=== PATIENT | male | born 1940 | race Caucasian/White ===

== ENCOUNTER → 2020-06-25 09:58 | Outpatient (BNVA) | payer MEDICARE, SELFPAY | PROVIDERS: PCP Internal Medicine; Visit Provider Internal Medicine Medical Oncology | DX: I26.99 Other pulmonary embolism without acute cor pulmonale (principal); Z51.81 Encounter for therapeutic drug level monitoring; Z79.01 Long term (current) use of anticoagulants | CPT/HCPCS: 85610; 99211 ==

== ENCOUNTER → 2020-07-11 08:55 | Outpatient (BNVA) | payer MEDICARE, SELFPAY | PROVIDERS: PCP Internal Medicine; Visit Provider Internal Medicine | DX: I26.99 Other pulmonary embolism without acute cor pulmonale (principal); Z51.81 Encounter for therapeutic drug level monitoring; Z79.01 Long term (current) use of anticoagulants | CPT/HCPCS: 85610; 99211 ==

== ENCOUNTER → 2020-08-08 08:54 | Outpatient (BNVA) | payer MEDICARE, SELFPAY | PROVIDERS: PCP Internal Medicine; Visit Provider Internal Medicine | DX: I26.99 Other pulmonary embolism without acute cor pulmonale (principal); Z51.81 Encounter for therapeutic drug level monitoring; Z79.01 Long term (current) use of anticoagulants | CPT/HCPCS: 85610; 99211 ==

== ENCOUNTER → 2020-09-10 08:25 | Outpatient (BNVA) | payer MEDICARE, SELFPAY | PROVIDERS: PCP Internal Medicine; Visit Provider Internal Medicine | DX: I26.99 Other pulmonary embolism without acute cor pulmonale (principal); Z79.01 Long term (current) use of anticoagulants; Z51.81 Encounter for therapeutic drug level monitoring | CPT/HCPCS: 85610; 99211 ==

== ENCOUNTER → 2020-10-08 08:50 | Outpatient (BNVA) | payer MEDICARE, SELFPAY | PROVIDERS: PCP Internal Medicine; Visit Provider Internal Medicine | DX: I26.99 Other pulmonary embolism without acute cor pulmonale (principal); Z51.81 Encounter for therapeutic drug level monitoring; Z79.01 Long term (current) use of anticoagulants | CPT/HCPCS: 85610; 99211 ==

== ENCOUNTER → 2020-11-05 09:11 | Outpatient (BNVA) | payer MEDICARE, SELFPAY | PROVIDERS: PCP Internal Medicine; Visit Provider Internal Medicine | DX: I26.99 Other pulmonary embolism without acute cor pulmonale (principal); Z51.81 Encounter for therapeutic drug level monitoring; Z79.01 Long term (current) use of anticoagulants | CPT/HCPCS: 85610; 99211 ==

== ENCOUNTER → 2020-12-03 09:03 | Outpatient (BNVA) | payer MEDICARE, SELFPAY | PROVIDERS: PCP Internal Medicine; Visit Provider Internal Medicine | DX: I26.99 Other pulmonary embolism without acute cor pulmonale (principal); Z51.81 Encounter for therapeutic drug level monitoring; Z79.01 Long term (current) use of anticoagulants | CPT/HCPCS: 85610; 99211 ==

== ENCOUNTER → 2020-12-31 08:48 | Outpatient (BNVA) | payer MEDICARE, SELFPAY | PROVIDERS: PCP Internal Medicine; Visit Provider Internal Medicine | DX: I26.99 Other pulmonary embolism without acute cor pulmonale (principal); Z79.01 Long term (current) use of anticoagulants; Z51.81 Encounter for therapeutic drug level monitoring | CPT/HCPCS: 85610; 99211 ==

== ENCOUNTER → 2021-01-21 09:07 | Outpatient (BNVA) | payer MEDICARE, SELFPAY | PROVIDERS: PCP Internal Medicine; Visit Provider Internal Medicine | DX: I26.99 Other pulmonary embolism without acute cor pulmonale (principal); Z51.81 Encounter for therapeutic drug level monitoring; Z79.01 Long term (current) use of anticoagulants | CPT/HCPCS: 85610; 99211 ==

== ENCOUNTER 2021-01-22 09:39 | Outpatient (REF) | payer MEDICARE, SELFPAY ==
--- NOTE | ~2021-01-22 | CT_ITS ---
EXAMINATION: CT CHEST, ABDOMEN AND PELVIS WITH IV CONTRAST CLINICAL INFORMATION: Metastatic colon cancer. Followup pulmonary nodules and liver lesions. COMPARISON: Previous PET/CT scan April 2020, chest CT scan February 2019 and MRI November 2018 TECHNIQUE: Axial images through the chest, abdomen and pelvis following oral and 85 mL Omnipaque 350 intravenous contrast. Sagittal and coronal reconstructions on the technologist workstation were performed. Patient dose: 215 plus 546 mGy-cm. This CT examination was performed using dose optimization techniques as appropriate, variously including the following: *Automated exposure control *Adjustment of mA and/or kV according to patient size (this includes techniques or standardized protocols for targeted exams where dose is matched to indication/reason for exam; i.e. extremities or head) *Use of iterative reconstruction technique FINDINGS: CHEST: The previously identified left upper lobe nodule on PET/CT scan April 2020 is changed in appearance. This has a central semisolid portion measuring 5 mm and new surrounding peripheral ground-glass attenuation measuring up to 2.8 cm. The central solid component appears smaller and less dense than seen on previous exam when this mentioned a homogeneous solid nodule measuring 1.3 cm. Question representing changes related to local treatment. There are 2 new right upper lobe nodules measuring 2.2 x 2.8 cm near the minor fissure and 1.5 cm x 2 cm more centrally near the right pulmonary hilum axial images 28 and 29 series 4. There are numerous new and increasing right lower lobe pulmonary nodules. The largest measures 3.2 x 3.6 cm axial image 38 series 4 near the major fissure. This measured approximately 7 mm on previous PET/CT scan. The visualized thyroid gland is unremarkable. There is question of increasing right hilar lymph nodes versus central right upper and right lower lung nodules. There is increasing right internal thoracic and anterior cardiophrenic angle/anterior diaphragmatic lymphadenopathy. No other evidence of enlarged hilar or mediastinal lymph nodes are seen. The heart does not appear enlarged. There is no pericardial effusion. There is no pleural effusion or pleural thickening. No chest wall mass or enlarged axillary lymph nodes are seen. There is a right jugular port with tip projecting over the SVC. Review at bone windows demonstrates no fracture or focal bone lesion. There are degenerative changes of the spine. ABDOMEN AND PELVIS: There is interval increase in size and number of liver lesions. There are multiple clustered lesions seen in the right lobe of the liver, possibly extending into some of the caudate lobe of the liver. These appear low-attenuation or possibly cystic or necrotic. The largest lesion measures 3.5 x 4.4 cm axial image 17 series 3. There is a separate smaller lesion measuring 2.5 x 2.8 cm near the caudate lobe axial image 20 series 3. There are several smaller satellite subcentimeter surrounding lesions. Liver lesions are difficult to separate from adjacent right adrenal lesion. There is a new 1 cm low-attenuation lesion in the left lobe axial image 26 series 3. There is question of a lesion in the falciform ligament superior to the gallbladder measuring 1 x 2 cm axial image 15 series 3 that is new. There is a 1 x 1.5 cm low-attenuation lesion in the left lobe of the liver that is stable and probably represents a cyst. The gallbladder is unremarkable. There is no biliary ductal dictation. There is a lobulated right adrenal heterogeneous nodule that measures 4.6 x 5.6 cm axial image 23 series 3. This is increased in size from prior pelvic CT scan and again difficult to separate from liver lesions. The left adrenal gland is normal-appearing. There are bilateral renal cysts. The kidneys are otherwise unremarkable. The bladder is not optimally distended. The prostate gland is slightly enlarged and protrudes into the base of the bladder. There are postsurgical changes from right colectomy. Small and large bowel is otherwise unremarkable. The stomach is unremarkable. There are several high-attenuation peritoneal nodules, for example, measuring 8 mm adjacent to the stomach axial image 30 series 3 and in the posterior mediastinum/upper abdomen adjacent to the esophagus axial image 14 series 3. Findings are questionable for evidence of peritoneal disease. There is no ascites. There are bilateral inguinal hernias containing fat, right greater than left. No adenopathy is seen. There is a new area of low attenuation seen in the main portal vein axial image 23 series 3 suggestive of thrombus. This is immediately adjacent to focal lesion and could possibly represent tumor thrombus. Review of bone windows demonstrates degenerative changes of the spine. No fracture or bone lesion is seen. CT/CT abdomen pelvis w con IMPRESSION: CHEST: There is overall interval increase in pulmonary nodules with new nodules in the right upper lobe and new and increasing nodules in the right lower lobe. The left upper lobe nodule appears smaller and decreased in density with a new larger area of surrounding ground-glass attenuation, question representing post local treatment changes. There is increasing right internal thoracic/internal mammary and anterior cardiophrenic angle/diaphragmatic lymphadenopathy. ABDOMEN AND PELVIS: Interval increase in size and number of liver lesions. Increasing right adrenal mass. This is difficult to separate from the adjacent liver lesions. New small amount of thrombus seen in the main portal vein. Question new peritoneal disease.
[2021-01-22] MEDS: iohexoL 350 MG/ML 100 ML INFUS..BTL IV (11:15)
== END 2021-01-22 09:40 | disposition home or self-care (01) ==
LOC: HO.CT 09:39
PROVIDERS: PCP Internal Medicine; Visit Provider Internal Medicine Medical Oncology
DX: C18.9 Malignant neoplasm of colon, unspecified (principal)
CPT/HCPCS: 71260; 74177; Q9967

== ENCOUNTER → 2021-01-24 09:15 | Outpatient (BNVA) | payer MEDICARE, SELFPAY | PROVIDERS: PCP Internal Medicine; Visit Provider Internal Medicine | DX: I26.99 Other pulmonary embolism without acute cor pulmonale (principal); Z79.01 Long term (current) use of anticoagulants; Z51.81 Encounter for therapeutic drug level monitoring | CPT/HCPCS: 85610; 99211 ==

== ENCOUNTER → 2021-01-31 08:34 | Outpatient (BNVA) | payer MEDICARE, SELFPAY | PROVIDERS: PCP Internal Medicine; Visit Provider Internal Medicine | DX: I26.99 Other pulmonary embolism without acute cor pulmonale (principal); Z51.81 Encounter for therapeutic drug level monitoring; Z79.01 Long term (current) use of anticoagulants | CPT/HCPCS: 85610; 99211 ==

== ENCOUNTER → 2021-02-14 08:49 | Outpatient (BNVA) | payer MEDICARE, SELFPAY | PROVIDERS: PCP Internal Medicine; Visit Provider Internal Medicine | DX: I26.99 Other pulmonary embolism without acute cor pulmonale (principal); Z51.81 Encounter for therapeutic drug level monitoring; Z79.01 Long term (current) use of anticoagulants | CPT/HCPCS: 85610; 99211 ==

== ENCOUNTER → 2021-03-14 08:58 | Outpatient (BNVA) | payer MEDICARE, SELFPAY | PROVIDERS: PCP Internal Medicine; Visit Provider Internal Medicine | DX: I26.99 Other pulmonary embolism without acute cor pulmonale (principal); Z51.81 Encounter for therapeutic drug level monitoring; Z79.01 Long term (current) use of anticoagulants | CPT/HCPCS: 85610; 99211 ==

== ENCOUNTER 2021-03-21 11:27 | Outpatient (REF) | payer MEDICARE, SELFPAY ==
--- NOTE | ~2021-03-21 | US_ITS ---
EXAMINATION: US VENOUS ULTRASOUND WITH DOPPLER LOWER EXTREMITY, BILATERAL CLINICAL INFORMATION: Swelling. History of DVT. COMPARISON: Previous exam most recent October 2019 TECHNIQUE: Ultrasound of the deep veins is performed from the hip to the calf with compression sonography and color and pulse Doppler assessment. Spectral analysis with color-flow imaging is performed. FINDINGS: RIGHT: There is thrombus seen in the right superficial femoral and popliteal vein. This is similar to previous exams, most recent October 2019. The right common femoral vein and posterior tibial and peroneal veins in the calf are patent. There is no significant popliteal fossa cyst. LEFT: There is normal venous compression and respiratory variation and augmented flow. The visualized common femoral vein, superficial femoral vein, profunda femoral vein, popliteal vein, and the trifurcation region shows no evidence of deep venous thrombosis. There is no significant popliteal fossa cyst. US/US venous duplex LE BI IMPRESSION: Right superficial femoral and popliteal vein DVT. This is similar to previous exams most recent October 2019. If there is clinical suspicion of acute DVT, short-term follow-up exam in several days to evaluate for change may be helpful. No evidence of left leg DVT.
--- NOTE | ~2021-03-21 | XR_ITS ---
EXAMINATION: XR RIBS, LEFT CLINICAL INFORMATION: Unspecified fall. COMPARISON: CT chest 01/22/2021 TECHNIQUE: 3 views of the left ribs were obtained. Chest one view FINDINGS: Chest: The lungs are well-expanded and clear of acute pneumonic process. Multiple views of left ribs reveal no visible fracture or bony abnormality. There are marker has been placed along the left lower ribs no abnormality seen. XR/XR ribs LT min 3V w [id number] IMPRESSION: Multiple right lung nodules. These were visualized on the recent CT chest exam 01/22/2021. There is no visible left rib fracture.
== END 2021-03-21 11:28 | disposition home or self-care (01) ==
LOC: HO.HMGCX 11:27
PROVIDERS: Visit Provider Internal Medicine
DX: R60.0 Localized edema (principal); E13.9 Other specified diabetes mellitus without complications; R07.81 Pleurodynia; S29.9XXA Unspecified injury of thorax, initial encounter; W19.XXXA Unspecified fall, initial encounter; X58.XXXA Exposure to other specified factors, initial encounter; Y93.9 Activity, unspecified; Y92.9 Unspecified place or not applicable; Y99.9 Unspecified external cause status
CPT/HCPCS: 71101; 93970

== ENCOUNTER → 2021-03-25 09:00 | Outpatient (BNVA) | payer MEDICARE, SELFPAY | PROVIDERS: PCP Internal Medicine; Visit Provider Internal Medicine | DX: I26.99 Other pulmonary embolism without acute cor pulmonale (principal); Z51.81 Encounter for therapeutic drug level monitoring; Z79.01 Long term (current) use of anticoagulants | CPT/HCPCS: 85610; 99211 ==

== ENCOUNTER 2021-04-02 16:04 | Emergency (ER) | payer MEDICARE, SELFPAY ==
--- NOTE | ~2021-04-02 | XR_ITS ---
Examination: XR thoracic spine 2V, XR lumbar spine 2-3V Indication: ? mets Comparison: 04/02/2021 CT scan of the pelvis and the 01/22/2021 CT scan of the chest and upper abdomen. Technique: 2 views the thoracic spine and 3 views of the lumbar spine obtained. Findings: Bones are normal anatomic alignment. I do not appreciate any acute fracture or spondylolisthesis. Vertebral body heights are grossly preserved. Extensive osteophyte formation is seen anteriorly in the thoracic spine. Mild degenerative changes in the posterior elements the lower lumbar spine. Bilateral airspace disease better seen on prior dedicated images through the chest. Bowel gas pattern unremarkable XR/XR thoracic spine 2V Impression: Chronic appearing and degenerative changes in the spine. I do not appreciate any definitive acute bony destructive lesions on these plain films. If there is persistent concern, cross-sectional imaging would be more sensitive.
--- NOTE | ~2021-04-02 | CT_ITS ---
EXAMINATION: CT HEAD WITHOUT CONTRAST CT CERVICAL SPINE WITHOUT CONTRAST CLINICAL INFORMATION: Dizziness. Imbalance. Metastatic disease. Colon cancer. COMPARISON: PET/CT study April 22, 2020. CT chest January 22, 2021 TECHNIQUE: Imaging was performed from the skull base to vertex without intravenous administration of contrast. In addition, helical noncontrast CT imaging was acquired through the cervical spine and source images were reviewed along with axial reconstructions and sagittal and coronal MPRs. [This CT examination was performed using dose optimization techniques as appropriate, variously including the following: *Automated exposure control *Adjustment of mA and/or kV according to patient size (this includes techniques or standardized protocols for targeted exams where dose is matched to indication/reason for exam; i.e. extremities or head) *Use of iterative reconstruction technique] DLP: 736.19+467.14+10.25 mGy-cm FINDINGS: HEAD: There are multiple geographic areas of edema in the white matter with associated mass effect. This is consistent with multiple metastatic lesions. There is a lesion in the left frontal lobe measuring about 1.2 cm with surrounding vasogenic edema. At the posterior right parietal lobe there is a 2.9 cm lesion. The left frontal parietal lobe adjacent to the sylvian fissure there is a hemorrhagic lesion measuring 2.5 cm. No intracranial hemorrhage. No significant midline shift. There is no hydrocephalus. There is no extra-axial collections. Visualized mastoid air cells, middle ear cavities are normally aerated. Small volume of mucosal thickening in the posterior right ethmoid sinus. CERVICAL SPINE: There is no evidence of acute cervical spine fracture. Vertebral bodies remain normal in height. Cervical vertebrae have normal alignment. There is multilevel degenerative spondylosis of the cervical spine with disc height narrowing and endplate spurs and facet joint arthrosis No pre- or paravertebral soft tissue abnormality is identified. Partially visualized left apical pleural-parenchymal scarring and nodule measuring 1.2 cm. This is stable since prior CAT of the chest scan January 22, 2021 CT/CT cervical spine wo con IMPRESSION: 1. There are multiple metastatic lesions in the brain bilaterally with significant surrounding vasogenic edema. 2. No CT evidence of acute cervical spine fracture or traumatic subluxation
--- NOTE | ~2021-04-02 | XR_ITS ---
Examination: XR thoracic spine 2V, XR lumbar spine 2-3V Indication: ? mets Comparison: 04/02/2021 CT scan of the pelvis and the 01/22/2021 CT scan of the chest and upper abdomen. Technique: 2 views the thoracic spine and 3 views of the lumbar spine obtained. Findings: Bones are normal anatomic alignment. I do not appreciate any acute fracture or spondylolisthesis. Vertebral body heights are grossly preserved. Extensive osteophyte formation is seen anteriorly in the thoracic spine. Mild degenerative changes in the posterior elements the lower lumbar spine. Bilateral airspace disease better seen on prior dedicated images through the chest. Bowel gas pattern unremarkable XR/XR lumbar spine 2-3V Impression: Chronic appearing and degenerative changes in the spine. I do not appreciate any definitive acute bony destructive lesions on these plain films. If there is persistent concern, cross-sectional imaging would be more sensitive.
--- NOTE | ~2021-04-02 | CT_ITS ---
EXAMINATION: CT PELVIS WITHOUT CONTRAST CLINICAL INFORMATION: History of metastatic disease. Colon cancer. COMPARISON: CT abdomen pelvis January 22, 2021. PET/CT April 22, 2020 TECHNIQUE: Helical scanning was performed with submillimeter collimation through the pelvis. Sagittal and coronal multiplanar 2-D reconstructions were obtained. This CT examination was performed using dose optimization techniques as appropriate, variously including the following: *Automated exposure control *Adjustment of mA and/or kV according to patient size (this includes techniques or standardized protocols for targeted exams where dose is matched to indication/reason for exam; i.e. extremities or head) *Use of iterative reconstruction technique DLP: 552.46 mGy-cm FINDINGS: PELVIS: No acute abnormality. No inflammation. No focal fluid collection or abscess. No free air. No acute change of the bowel. No bowel obstruction. No bowel wall thickening or edema. Moderate volume of stool in the colon. Largest collection of stool is in the rectum sigmoid but without evidence for stercoral colitis. There is a surgical suture line in the right colon at the cecum. No pelvic mass. No significant lymphadenopathy. Redemonstration of renal cysts bilateral lower poles. No follow-up imaging is recommended for simple renal cyst. Prostate measures 4.8 cm transverse. Seminal vesicles are normal. Bladder is unremarkable. Bilateral fat-containing inguinal hernias. Mild degenerative spondylosis lower lumbar spine. Degenerative changes of sacroiliac joints. There are bridging spurs of the sacroiliac joints bilateral. No acute osseous or suspicious osseous lesions CT/CT pelvis wo con IMPRESSION: No pelvic mass or evidence of metastatic disease. No acute change of pelvis.
[2021-04-02 16:06] VITALS: BP 153/70; PULSE 77; RESP 16; TEMP 36.5; O2SAT 97; BMI 31.7
--- NOTE | 2021-04-02 16:17 | PC.NURSE ---
Patient sent to er by pcp for CT scan. Pt has been falling more frequently. Pt has a sensation that he is floating. Pt denies dizziness. Family states pt coordination is off causing him to have difficulty dressing self for the last several days
[2021-04-02 16:19] VITALS: BP 145/70; PULSE 78; RESP 16; O2SAT 99
[2021-04-02 16:39] LABS: MANUAL DIFF FLAG NO
--- NOTE | 2021-04-02 16:40 | ED_ITS ---
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 His daughter states the patient has had a decline in his energy level, his food intake, has become incontinent of urine and is unable to dress himself as of the last few weeks. She states the patient is also off balance, she says he is complaining of feeling like he is ?floating ?. He has been using a cane around the house but he is not very good with that and they are concerned he is going to fall, he wal ks while holding furniture, from item to item. 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 Today, the patient denies any chest pain, shortness of breath, fever, cough, nausea, vomiting, diarrhea, abdominal pain, headaches or changes in his hearing or vision. Related Data Home Medications Medication Instructions Recorded Confirmed omeprazole 20 mg capsule,delayed 20 mg PO DAILY 10/16/20 04/02/21 release centrum multivitamin PO 01/24/21 04/02/21 glipizide 5 mg tablet 5 mg PO DAILY 04/02/21 04/02/21 Previous Rx's Medication Instructions Recorded lisinopril 20 1 tab PO DAILY #90 tab 02/03/21 mg-hydrochlorothiazide 25 mg tablet clotrimazole-betamethasone 1 1 appl TOPICAL ONCE 30 Days #45 g 03/21/21 %-0.05 % topical cream warfarin 5 mg PO DAILY #90 tab 04/01/21 Allergies Allergy/AdvReac Type Severity Reaction Status Date / Time No Known Allergies Allergy Verified 04/02/21 15:10 [No Known Allergies*] Review of Systems Review of Systems: Yes all other systems are reviewed and are negative PMFSH Past Medical History Medical History Anticoagulated on warfarin Chronic GERD Colon cancer Diabetes 1.5, managed as type 2 Difficulty walking Hypertension, essential Liver lesion Lung nodule Surgical History History of wisdom tooth extraction Family History Family History Father HTN (hypertension) Mother Hyperlipidemia Maternal Grandfather No problems noted. Maternal Grandmother Mental health disorder Paternal Grandfather No problems noted. Paternal Grandmother No problems noted. Social History Social History Alcohol intake: never Patient Tobacco Use Status: Never used Tobacco e-Cigarette/Vaping Use: Never Used Use of substances other than those prescribed or required for medical reasons: No Advance Directives: No Advance Directives Information Provided: Yes Physical Exam Vital Signs: Vital Signs: Last Vital Signs Temp 98.4 F 04/02/21 18:41 Pulse 74 04/02/21 18:42 Resp 18 04/02/21 18:41 BP 147/57 H 04/02/21 18:41 Pulse Ox 97 04/02/21 18:41 Body Mass Index 31.7 Const: General: cooperative, healthy appearing, comfortable, no acute distress and well developed Nutritional Appearance: overweight Orientatio n/consciousness: patient oriented x3 HENMT: Head: Yes normal to inspection, Yes normocephalic and Yes atraumatic Ears: hearing grossly normal bilaterally General nose exam: Normal external nose present Face and sinus: Yes normal facial exam and Yes face symmetric Mouth: Normal oral and palatal mucosa present, lip normal and tongue normal Eyes: General: dysmorphic (right eye protrudes further than left, new per daughter) Visual Houser: normal visual houser by confrontation Pupils: Equal, round and reactive pupils present EOM: EOMs intact bilaterally Neck: Neck: Yes normal visual inspection and Yes full ROM Resp: Effort & Inspection: normal respiratory effort and able to speak in complete sentences Auscultation: clear to auscultation bilaterally Cardio: Rate: regular rate Rhythm: regular rhythm Heart sounds: normal S1 and S2 GI: Inspection: Yes obesity Palpation (GI): Soft to palpation and nontender Neuro: General: patient oriented x3 and Unable to assess gait Cranial nerves: Yes CN's II-XII intact bilaterally and Yes Equal, round and reactive pupils present Gait exam (Neuro): Unable to assess gait Motor exam (neuro): 5/5 motor strength present throughout Extrem: General: Yes normal to inspection and Yes pedal edema (trace b/l) Course Course Course Narrative: 80-year-old male with a past medical history of 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 VSS, physical exam remarkable only for the right eye for treating further than the left, this is new per his daughter. Will get basic labs as well as a brain CT and a full spine CT including pelvis. Reevaluation(s) Reevaluation #1: 1. There are multiple metastatic lesions in the brain bilaterally with significant surrounding vasogenic edema. 2. No CT evidence of acute cervical spine fracture or traumatic subluxation 3. No pelvic mass or evidence of metastatic disease. No acute change of pelvis. 4. Labs appear to be at baseline. Patient's daughters are with him in the exam room, we talked about the results of the scans and his labs including a chronic pancytopenia. They state they feel safe with him going home as his is there and they are only a few minutes away. Patient does have a follow-up appointment with oncology tomorrow to discuss the results of these scans. Medical Decision Making Lab Data Result diagrams: 04/02/21 16:35 04/02/21 16:35 Labs: Lab Results 04/02/21 04/02/21 Range/Units 16:35 16:35 WBC 3.6 L (4.8-10.8) X10*3/uL RBC 3.54 L (4.60-5.80) X10*6/uL Hgb 10.7 L (14.0-18.0) g/dl Hct 33.2 L (42-52) % MCV 93.8 (80-98) fL MCH 30.2 (27.0-33.0) pg MCHC 32.2 (31.0-36.0) g/dl RDW 13.1 (11.0-16.0) % Plt Count 117 L (160-400) X10*3/uL MPV 9.2 L (9.4-12.4) fL Immature Gran % (Auto) 0.3 (0.0-0.4) % Neut % (Auto) 51.1 (45-73) % Lymph % (Auto) 28.1 (20-40) % Evangeline % (Auto) 16.3 H (2-11) % Eos % (Auto) 3.9 (0-4) % Baso % (Auto) 0.3 (0-2) % Lymph # (Auto) 1.0 L (1.2-4.9) X10*3/uL Evangeline # (Auto) 0.6 (0.1-1.2) X10*3/uL Eos # (Auto) 0.1 (0.0-0.4) X10*3/uL Baso # (Auto) 0.0 (0.0-0.2) X10*3/uL Abs Immat Gran (auto) 0.01 (0.00-0.03) X10*3/uL Absolute Neuts (auto) 1.9 L (2.0-8.3) X10*3/uL Absolute Nucleated RBC 0.000 (0.0-0.012) X10*3/uL Nucleated RBC % (auto) 0.0 (0.0-0.2) /100WBC Sodium 137 (135-145) mmol/L Potassium 4.0 (3.3-5.1) mmol/L Chloride 100 (96-108) mmol/L Carbon Dioxide 27 (22-29) mmol/L Anion Gap 14 (12-20) BUN 18 H (9-16) mg/dL Creatinine 1.10 (0.5-1.4) mg/dL Estim Creat Clear Calc 60.8 Estimated GFR > 60 Random Glucose 128 H D (60-115) mg/dL Calcium 9.5 D (8.4-10.2) mg/dL Total Bilirubin 0.5 (0.0-1.0) mg/dL AST 36 (5-37) U/L ALT 24 (0-40) U/L Alkaline Phosphatase 111 D (39-117) U/L Total Protein 8.5 H (6.5-8.0) g/dL Albumin 3.6 (3.5-5.0) g/dL Discharge Plan Discharge Clinical Impression: Pancytopenia, Adenocarcinoma of colon, Metastatic adenocarcinoma to brain, 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 As discussed, please be sure to follow-up with Oncology, as scheduled tomorrow. Prescriptions: No Action lisinopril-hydrochlorothiazide 20-25 mg tablet 1 tab PO DAILY Qty: 90 RF: 0 clotrimazole-betamethasone 1-0.05 % cream 1 appl topical ONCE 30 Days Qty: 45 RF: 3 glipizide 5 mg tablet 5 mg PO DAILY RF: 0 omeprazole 20 mg capsule,delayed release(DR/EC) 20 mg PO DAILY RF: 0 warfarin 5 mg tablet 5 mg PO DAILY Qty: 90 RF: 3 centrum multivitamin PO RF: 0 Referrals: Alexus Marcelo MD [Physician] - 1 day (as previously scheduled)
[2021-04-02 16:42] LABS: Basophils Percent Auto 0.3 % (0-2); Eosinophils Absolute Auto 0.1 X10*3/uL (0.0-0.4); Eosinophils Percent Auto 3.9 % (0-4); Hematocrit 33.2 % (42-52); Hemoglobin 10.7 g/dl (14.0-18.0); Imm Gran Abs Auto 0.01 X10*3/uL (0.00-0.03); Imm Gran Pct Auto 0.3 % (0.0-0.4); Lymphocytes Percent Auto 28.1 % (20-40); Mean Corpuscular HGB Conc 32.2 g/dl (31.0-36.0); Mean Corpuscular Hemoglobin 30.2 pg (27.0-33.0); Mean Corpuscular Volume 93.8 fL (80-98); Mean Platelet Volume 9.2 fL (9.4-12.4); Monocytes Absolute Auto 0.6 X10*3/uL (0.1-1.2); Monocytes Percent Auto 16.3 % (2-11); Neutrophils Absolute Auto 1.9 X10*3/uL (2.0-8.3); Neutrophils Percent Auto 51.1 % (45-73); Platelet Count 117 X10*3/uL (160-400); Red Blood Count 3.54 X10*6/uL (4.60-5.80); Red Cell Distribution Width 13.1 % (11.0-16.0); White Blood Count 3.6 X10*3/uL (4.8-10.8)
[2021-04-02 17:10] LABS: Alanine Aminotransferase 24 U/L (0-40); Albumin Level 3.6 g/dL (3.5-5.0); Alkaline Phosphatase 111 U/L (39-117); Anion Gap 14 (12-20); Aspartate Amino Transferase 36 U/L (5-37); Bilirubin Total 0.5 mg/dL (0.0-1.0); Blood Urea Nitrogen 18 mg/dL (9-16); Calcium 9.5 mg/dL (8.4-10.2); Carbon Dioxide 27 mmol/L (22-29); Chloride 100 mmol/L (96-108); Creatinine Clr Calc Pharmacy 60.8; Estimated Glomerular Filt Rate > 60; Glucose Random 128 mg/dL (60-115); Sodium 137 mmol/L (135-145); Total Protein 8.5 g/dL (6.5-8.0)
--- NOTE | 2021-04-02 17:35 | PC.NURSE ---
Patient ambulatory with a cane and family assistance to the bathroom.
[2021-04-02 18:41] VITALS: BP 147/57; RESP 18; TEMP 36.9; O2SAT 97
[2021-04-02 18:42] VITALS: PULSE 74
== END 2021-04-02 19:39 | disposition home or self-care (01) ==
PROVIDERS: Physician Assistant; Emergency Provider Emergency Medicine; PCP Internal Medicine
DX: D61.818 Other pancytopenia (principal); M54.2 Cervicalgia; R10.2 Pelvic and perineal pain; R51.9 Headache, unspecified; M54.5 Low back pain; C18.9 Malignant neoplasm of colon, unspecified; C78.02 Secondary malignant neoplasm of left lung; C78.01 Secondary malignant neoplasm of right lung; C79.31 Secondary malignant neoplasm of brain; Z79.899 Other long term (current) drug therapy
CPT/HCPCS: 36415; 70450; 72070; 72100; 72125; 72192; 80053; 85025; 99284

== ENCOUNTER 2021-04-04 18:14 | Outpatient (REF) | payer MEDICARE, SELFPAY ==
--- NOTE | ~2021-04-04 | MR_ITS ---
EXAMINATION: MR BRAIN WITHOUT AND WITH CONTRAST CLINICAL INFORMATION: Metastatic colon cancer COMPARISON: CT head dated 04/02/2021 TECHNIQUE: Multiplanar, multisequence MRI of the brain was obtained before and after the intravenous administration of 10 mL Gadavist. FINDINGS: There are bilateral cerebral metastases, largest within the right posterior parietal lobe measuring 3.5 x 2.9 x 2.1 cm. An additional metastatic lesion is present within the posteromedial left temporal lobe measuring 2.5 cm. Smaller metastatic lesion present within the left frontal lobe subjacent to the middle frontal gyrus measures 1.3 cm. There is a 0.9 cm lesion within the anterior left temporal lobe. These lesions all demonstrate heterogeneous peripherally predominant enhancement, with corresponding restricted diffusion. Prominent susceptibility artifact present throughout the left medial temporal lobe lesion reflective of petechial hemorrhage. There is associated punctate susceptibility artifact within the left frontal lesion, and adjacent to the right posterior parietal lesion. These lesions are associated with prominent surrounding confluent T2 prolongation most compatible with vasogenic edema. There is associated local regional mass effect resulting in partial effacement of the right lateral ventricular atrium. No herniation pattern evident. No extra-axial collection The paranasal sinuses are well aerated. MR/MR head/brain wo/w con IMPRESSION: Multiple bilateral cerebral metastases as described.
== END 2021-04-04 18:15 | disposition home or self-care (01) ==
LOC: HO.MRI 18:14
PROVIDERS: Visit Provider Internal Medicine Medical Oncology
DX: C79.31 Secondary malignant neoplasm of brain (principal)
CPT/HCPCS: 70553; A9585

== ENCOUNTER 2021-04-25 10:36 | Outpatient (REF) | payer MEDICARE, SELFPAY ==
[2021-04-25 11:19] LABS: Prothrombin Time 89.1 SEC (9.9-13.0)
[2021-04-25 11:22] LABS: INTERNATIONAL NORM RATIO 7.5 (0.9-1.1)
== END 2021-04-25 10:37 | disposition home or self-care (01) ==
LOC: HO.LAB 10:36
PROVIDERS: PCP Internal Medicine; Visit Provider Internal Medicine
DX: I26.99 Other pulmonary embolism without acute cor pulmonale (principal); Z51.81 Encounter for therapeutic drug level monitoring; Z79.01 Long term (current) use of anticoagulants
CPT/HCPCS: 36415; 85610; 99211

== ENCOUNTER → 2021-04-28 13:16 | Outpatient (BNVA) | payer MEDICARE, SELFPAY | PROVIDERS: PCP Internal Medicine; Visit Provider Internal Medicine | DX: I26.99 Other pulmonary embolism without acute cor pulmonale (principal); Z51.81 Encounter for therapeutic drug level monitoring; Z79.01 Long term (current) use of anticoagulants | CPT/HCPCS: 85610; 99211 ==

== ENCOUNTER → 2021-05-05 11:16 | Outpatient (BNVA) | payer MEDICARE, SELFPAY | PROVIDERS: PCP Internal Medicine; Visit Provider Internal Medicine | DX: I26.99 Other pulmonary embolism without acute cor pulmonale (principal); Z51.81 Encounter for therapeutic drug level monitoring; Z79.01 Long term (current) use of anticoagulants | CPT/HCPCS: 85610; 99211 ==

== ENCOUNTER 2021-05-07 21:49 | Observation (INO) | payer MEDICARE, SELFPAY ==
--- NOTE | ~2021-05-07 | XR_ITS ---
EXAMINATION: XR CHEST CLINICAL INFORMATION: Weakness. Concern for pneumonia. History of metastatic colon cancer. COMPARISON: CT chest January 22, 2021 TECHNIQUE: 2 views of the chest were obtained. FINDINGS: Multiple right-sided lung masses again demonstrated unchanged since CAT scan January 22, 2021 allowing for differences in technique. There is no acute airspace disease. No pleural effusion. Cardiac and mediastinal contours are normal. The heart size is normal. No pulmonary vascular congestion. Central port catheter tip at caval atrial junction. Multilevel degenerative spondylosis spine. Small calcification adjacent to the right humeral head and the right shoulder may be calcific tendinosis supraspinatus. XR/XR chest 2V IMPRESSION: 1. No acute airspace disease. 2. Redemonstration of multiple right lung masses.
[2021-05-07 21:52] VITALS: BP 115/58; PULSE 107; RESP 17; TEMP 36.9; O2SAT 98; BMI 31.7
[2021-05-07 22:56] VITALS: TEMP 38.4
--- NOTE | 2021-05-07 23:23 | ED_ITS ---
HPI - General Adult General Chief complaint: General Medical Stated complaint: cellulitis, hands cramping Time Seen by Provider: 05/07/21 22:40 History of Present Illness HPI narrative: 80-year-old who was brought to the emergency department by his family for evaluation swelling, pain and redness of his lower extremities as well as difficulty walking. The information mainly comes from the patient's daughter. The patient developed pain and redness of his lower extremities around 2:00 p.m.. The redness and pain get worse. The patient had subjective fever and chills throughout the day and had to wear a sweater is a complained of feeling cold. He also had shortness of breath throughout the day. The family states that his left hand with cramp up and become very tight and this was happening intermittently as well. The patient was diagnosed with colon cancer in December of 2015. He now has metastatic lesions to his liver lung and recently to his brain. The patient completed a 2 week course of dexamethasone on 05/01/2021, he also was treated with radiation to the brain and this was completed on 04/21/2021. The patient does have a history of DVT which was 1st diagnosed in December of 2015 and he has been on Coumadin since then. The patient has received the 2 shot vaccination for COVID-19. Related Data Home Medications Medication Instructions Recorded Confirmed centrum multivitamin 500 mcg PO DAILY 01/24/21 05/05/21 Previous Rx's Medication Instructions Recorded clotrimazole-betamethasone 1 1 appl TOPICAL ONCE 30 Days #45 g 03/21/21 %-0.05 % topical cream warfarin 5 mg tablet 5 mg PO DAILY #90 tab 04/01/21 dexamethasone 4 mg tablet 4 mg PO TID #100 tab 04/03/21 (Decadron) omeprazole 20 mg capsule,delayed 20 mg PO DAILY #90 cap 04/03/21 release sennosides 8.6 mg-docusate sodium 1 tab-cap PO BEDTIME #60 tab 04/24/21 50 mg tablet (Senokot-S) glipizide 5 mg tablet 5 mg PO BID 90 Days #180 tab 05/05/21 lisinopril 20 1 tab PO DAILY #90 tab 05/05/21 mg-hydrochlorothiazide 25 mg tablet Allergies Allergy/AdvReac Type Severity Reaction Status Date / Time No Known Allergies Allergy Verified 05/07/21 21:52 [No Known Allergies*] Review of Systems Review of Systems: Yes all other systems are reviewed and are negative [facility] Past Medical History [facility] Narrative: Past medical history: Colon cancer 1st diagnosed in December 2015 with recurrence and metastatic disease to the brain, lung and liver. Past surgical history: Colon resection for cancer. Social history: The patient does not smoke cigarettes, drink alcohol or use drugs. The patient lives at home with his and his granddaughter. The patient has 2 daughters that her here in the emergency department with him as well. Medical History Anticoagulated on warfarin Brain cancer Chronic GERD Colon cancer Diabetes 1.5, managed as type 2 Difficulty walking DVT (deep venous thrombosis) Hypertension, essential Liver lesion Lung nodule Family History Family History Father HTN (hypertension) Mother Hyperlipidemia Maternal Grandfather No problems noted. Maternal Grandmother Mental health disorder Paternal Grandfather No problems noted. Paternal Grandmother No problems noted. Social History Social History Alcohol intake: never Patient Tobacco Use Status: Never used Tobacco e-Cigarette/Vaping Use: Never Used Advance Directives: No Advance Directives Information Provided: Yes Physical Exam Vital Signs: Vital Signs: Last Vital Signs Temp 99.0 F 05/08/21 00:49 Pulse 98 05/08/21 00:49 Resp 20 05/08/21 00:49 BP 118/68 05/08/21 00:49 Pulse Ox 99 05/08/21 00:49 Body Mass Index 31.7 Const: General: cooperative and no acute distress Orientation/consciousness: oriented to person and oriented to place Limitations: no limitations HENMT: Head: Yes normal to inspection, Yes normocephalic and Yes atraumatic Ears: external ears normal General nose exam: Normal external nose present Face and sinus: Yes normal facial exam Mouth: Normal oral and palatal mucosa present Throat: Yes posterior oropharynx normal Eyes: General: appearance normal, both eyes and all related structures Pupils: Equal, round and reactive pupils present Neck: Neck: Yes normal visual inspection, Yes no lymphadenopathy, Yes trachea midline and Yes supple Chest: Chest palpation & inspection: normal inspection of the chest and normal palpation of entire chest wall Resp: Effort & Inspection: normal respiratory effort and able to speak in complete sentences Auscultation: clear to auscultation bilaterally Cardio: Rate: regular rate Rhythm: regular rhythm Heart sounds: S1 normal heart sound present, S2 normal heart sound present and no murmurs GI: Inspection: Yes normal to inspection Palpation (GI): Soft to palpation, Tenderness to palpation present (GI) (Mild left lower quadrant) and no guarding Auscultation: normal bowel sounds : General: Yes no CVA tenderness Back/Spine/Pelvis: Back: no CVA tenderness Skin: Other: The patient has a erythematous rash to his lower extremities, there are areas of the rash that jamel but there are areas that are non rib blanching, there is increased warmth over some of the areas of erythema. The rash and below the knee on both lower extremities. Neuro: General: oriented to person and oriented to place Cranial nerves: Yes CN's II-XII intact bilaterally and Yes Equal, round and reactive pupils present Cognition (Neuro): normal cognition Motor exam (neuro): 5/5 motor strength present throughout Extrem: Other: Both lower extremities are swollen, the patient has 1+ pitting edema which is symmetric, he has an erythematous rash the lower extremities as discussed in the skin section. General: Yes normal to inspection Psych: Appearance: grossly normal Speech and movement: Normal speech and movement present Affect: normal affect Attitude: cooperative Thought process: Normal thought process present Thought content: Normal thought content present Course Course Course Narrative: 80-year-old male who presents emergency department for evaluation of bilateral lower extremity painful erythema with subjective fever, chills and shortness of breath, with symptoms beginning today. Vital signs initially revealed a temperature of 98.5?, repeat temperature was 101.2? F. patient has an elevated pulse of 106 with a normal respiratory rate and a normal O2 saturation of 98% on room air. Physical examination did reveal an erythematous rash to his lower extremities with a component that blanches and a component that is nonblanching. He also has increased warmth over the erythema. The erythema is consistent with bilateral cellulitis however vasculitis also needs to be considered. The patient does meet SIRS criteria with an elevated temperature and an elevated pulse. I did order laboratory evaluation. At this time the patient is not hypotensive and his map is 77. I do not think that he needs a bolus of fluid especially given his peripheral edema at this time. The patient was ordered to get Ancef 2 g IV to treat him for possible cellulitis of lower extremities is the cause of his fever. 0103: Laboratory evaluation revealed a pancytopenia with a WBC of 3400, H&H of 10.3 and 30.7 , this is chronic and most likely related to his metastatic colon cancer. Patient has an elevated AST, ALT, and alk-phos of 65, 114 and 156, this is slightly above his baseline. Urinalysis was negative. COVID-19 was negative. The patient is on were fair in and he does have a therapeutic INR of 3.0. He also has an elevated PTT of 43.7. I do not think the patient has bilateral DVTs is the cause of his symptoms. Chest x-ray revealed no infiltrates but the patient does have right-sided lung mass is consistent with his metastatic disease. The patient will need admission for IV antibiotics, I will discuss this with the covering hospitalist. 0214: I did discuss the patient's presentation with the covering hospitalist, Dr. Joshua Sheikh and the patient will be admitted to the hospital service for further treatment. Medical Decision Making Lab Data Result diagrams: 05/08/21 00:07 05/08/21 00:07 Labs: Lab Results 05/08/21 05/08/21 05/08/21 Range/Units 00:07 00:07 00:07 WBC 3.4 L (4.8-10.8) X10*3/uL RBC 3.27 L D (4.60-5.80) X10*6/uL Hgb 10.3 L D (14.0-18.0) g/dl Hct 30.5 L D (42-52) % MCV 93.3 (80-98) fL MCH 31.5 (27.0-33.0) pg MCHC 33.8 (31.0-36.0) g/dl RDW 15.1 (11.0-16.0) % Plt Count 73 L (160-400) X10*3/uL MPV 9.6 (9.4-12.4) fL Immature Gran % (Auto) 0.9 H (0.0-0.4) % Neut % (Auto) 60.2 (45-73) % Lymph % (Auto) 21.8 (20-40) % [place] % (Auto) 15.6 H (2-11) % Eos % (Auto) 0.9 (0-4) % Baso % (Auto) 0.6 (0-2) % Lymph # (Auto) 0.7 L (1.2-4.9) X10*3/uL [place] # (Auto) 0.5 (0.1-1.2) X10*3/uL Eos # (Auto) 0.0 (0.0-0.4) X10*3/uL Baso # (Auto) 0.0 (0.0-0.2) X10*3/uL Abs Immat Gran (auto) 0.03 (0.00-0.03) X10*3/uL Absolute Neuts (auto) 2.0 (2.0-8.3) X10*3/uL Absolute Nucleated RBC 0.000 (0.0-0.012) X10*3/uL Nucleated RBC % (auto) 0.0 (0.0-0.2) /100WBC PT 34.8 H D (9.9-13.0) SEC INR 3.0 H (0.9-1.1) APTT 43.7 H (24.1-38.0) SEC Sodium 130 L (135-145) mmol/L Potassium 4.3 (3.3-5.1) mmol/L Chloride 97 (96-108) mmol/L Carbon Dioxide 25 (22-29) mmol/L Anion Gap 12 (12-20) BUN 20 H (9-16) mg/dL Creatinine 0.95 (0.5-1.4) mg/dL Estim Creat Clear Calc 72.6 Estimated GFR > 60 Random Glucose 104 D (60-115) mg/dL Lactic Acid (0.5-2.0) mmol/L Calcium 8.1 L (8.4-10.2) mg/dL Total Bilirubin 0.8 (0.0-1.0) mg/dL AST 65 H (5-37) U/L ALT 114 H (0-40) U/L Alkaline Phosphatase 156 H D (39-117) U/L Total Protein 6.4 L (6.5-8.0) g/dL Albumin 3.1 L (3.5-5.0) g/dL Urine Color Urine Appearance Urine pH (5.0-8.0) Ur Specific [place] (1.005-1.025) Urine Protein (NEG-TRACE) MG/DL Urine Glucose (UA) (NEG) MG/DL Urine Ketones (NEG) MG/DL Urine Blood (NEG) Urine Nitrite (NEG) Ur Leukocyte Esterase (NEG) COVID-19 (DILSHAD) (Negative) COVID-19 Clin Com 05/08/21 05/08/21 05/08/21 Range/Units 00:07 00:07 00:30 WBC (4.8-10.8) X10*3/uL RBC (4.60-5.80) X10*6/uL Hgb (14.0-18.0) g/dl Hct (42-52) % MCV (80-98) fL MCH (27.0-33.0) pg MCHC (31.0-36.0) g/dl RDW (11.0-16.0) % Plt Count (160-400) X10*3/uL MPV (9.4-12.4) fL Immature Gran % (Auto) (0.0-0.4) % Neut % (Auto) (45-73) % Lymph % (Auto) (20-40) % [place] % (Auto) (2-11) % Eos % (Auto) (0-4) % Baso % (Auto) (0-2) % Lymph # (Auto) (1.2-4.9) X10*3/uL [place] # (Auto) (0.1-1.2) X10*3/uL Eos # (Auto) (0.0-0.4) X10*3/uL Baso # (Auto) (0.0-0.2) X10*3/uL Abs Immat Gran (auto) (0.00-0.03) X10*3/uL Absolute Neuts (auto) (2.0-8.3) X10*3/uL Absolute Nucleated RBC (0.0-0.012) X10*3/uL Nucleated RBC % (auto) (0.0-0.2) /100WBC PT (9.9-13.0) SEC INR (0.9-1.1) APTT (24.1-38.0) SEC Sodium (135-145) mmol/L Potassium (3.3-5.1) mmol/L Chloride (96-108) mmol/L Carbon Dioxide (22-29) mmol/L Anion Gap (12-20) BUN (9-16) mg/dL Creatinine (0.5-1.4) mg/dL Estim Creat Clear Calc Estimated GFR Random Glucose (60-115) mg/dL Lactic Acid 1.1 (0.5-2.0) mmol/L Calcium (8.4-10.2) mg/dL Total Bilirubin (0.0-1.0) mg/dL AST (5-37) U/L ALT (0-40) U/L Alkaline Phosphatase (39-117) U/L Total Protein (6.5-8.0) g/dL Albumin (3.5-5.0) g/dL Urine Color YELLOW Urine Appearance CLEAR Urine pH 6.5 (5.0-8.0) Ur Specific [place] 1.010 (1.005-1.025) Urine Protein TRACE (NEG-TRACE) MG/DL Urine Glucose (UA) NEG (NEG) MG/DL Urine Ketones NEG (NEG) MG/DL Urine Blood NEG (NEG) Urine Nitrite NEG (NEG) Ur Leukocyte Esterase NEG (NEG) COVID-19 (DILSHAD) Negative (Negative) COVID-19 Clin Com See Note Discharge Plan Discharge Patient Disposition: Admitted As Inpatient
[2021-05-08] VITALS (13 sets, daily range): BP systolic 99–135; BP diastolic 55–78; PULSE 87–111; RESP 14–20; TEMP 36.2–37.7; O2SAT 95–100
[2021-05-08 00:17] LABS: MANUAL DIFF FLAG NO
[2021-05-08 00:19] LABS: Basophils Percent Auto 0.6 % (0-2); Eosinophils Percent Auto 0.9 % (0-4); Hematocrit 30.5 % (42-52); Hemoglobin 10.3 g/dl (14.0-18.0); Imm Gran Abs Auto 0.03 X10*3/uL (0.00-0.03); Imm Gran Pct Auto 0.9 % (0.0-0.4); Lymphocytes Absolute Auto 0.7 X10*3/uL (1.2-4.9); Lymphocytes Percent Auto 21.8 % (20-40); Mean Corpuscular HGB Conc 33.8 g/dl (31.0-36.0); Mean Corpuscular Hemoglobin 31.5 pg (27.0-33.0); Mean Corpuscular Volume 93.3 fL (80-98); Mean Platelet Volume 9.6 fL (9.4-12.4); Monocytes Absolute Auto 0.5 X10*3/uL (0.1-1.2); Monocytes Percent Auto 15.6 % (2-11); Neutrophils Percent Auto 60.2 % (45-73); Red Blood Count 3.27 X10*6/uL (4.60-5.80); Red Cell Distribution Width 15.1 % (11.0-16.0); White Blood Count 3.4 X10*3/uL (4.8-10.8)
[2021-05-08 00:24] LABS: Platelet Count 73 X10*3/uL (160-400)
[2021-05-08 00:30] LABS: Prothrombin Time 34.8 SEC (9.9-13.0)
[2021-05-08 00:33] LABS: Partial Thromboplastin Time 43.7 SEC (24.1-38.0)
[2021-05-08] MEDS: Acetaminophen 325 MG TABLET 650 MG PO (00:34)
[2021-05-08 00:38] LABS: COVID-19 Test Negative (Negative)
[2021-05-08 00:39] LABS: Lactic Acid 1.1 mmol/L (0.5-2.0)
[2021-05-08 00:42] LABS: Glucose Urine UA NEG (NEG); Leukocyte Esterase Urine NEG (NEG); Nitrite Urine NEG (NEG); PH 6.5 (5.0-8.0); Urine Blood NEG (NEG); Urine Ketones NEG (NEG); Urine Protein TRACE MG/DL (NEG-TRACE)
[2021-05-08 00:43] LABS: Appearance Urine CLEAR; Color Urine YELLOW
[2021-05-08 00:46] LABS: Alanine Aminotransferase 114 U/L (0-40); Albumin Level 3.1 g/dL (3.5-5.0); Alkaline Phosphatase 156 U/L (39-117); Anion Gap 12 (12-20); Aspartate Amino Transferase 65 U/L (5-37); Bilirubin Total 0.8 mg/dL (0.0-1.0); Blood Urea Nitrogen 20 mg/dL (9-16); Calcium 8.1 mg/dL (8.4-10.2); Carbon Dioxide 25 mmol/L (22-29); Chloride 97 mmol/L (96-108); Creatinine Clr Calc Pharmacy 72.6; Estimated Glomerular Filt Rate > 60; Glucose Random 104 mg/dL (60-115); Potassium 4.3 mmol/L (3.3-5.1); Sodium 130 mmol/L (135-145); Total Protein 6.4 g/dL (6.5-8.0)
--- NOTE | 2021-05-08 02:55 | P.HPHOSP_ITS ---
History of Present Illness Date of Service: 05/08/21 Chief Complaint: Leg redness 80-year-old male, mainly Yi speaking, with 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 Marcelo (has had radiation therapy recently), also has history of prior DVT (on warfarin), GERD, diabetes mellitus (non-insulin dependent), hypertension, who presents because of redness on his bilateral lower extremities. History is from patient, patient's daughter (at bedside) and ED notes. Patient has metastatic colon cancer to the brain liver and lungs, he sees Dr. Marcelo, and his most recent radiation therapy was on 04/21/2021. His most recent chemotherapy was in 2018. Otherwise, he has had no new medications. He lives with his and his neice. On the night of 05/07/2021 (last night), he noticed redness on both legs. He denies any itching, pain, trauma, no new medications. Therefore he came to the ED. he also noted transient weakness in his left hand (he was not able to open his fist), but family suspects he might have had a hand cramp; currently this has resolved. Otherwise he denies chest pain, shortness of breath, chills, nausea, vomiting. In the ED, he was febrile to 101.2? F, with a heart rate as high as 107, labs did show his chronic pancytopenia. Chest x-ray and urinalysis was negative for any acute infection. His COVID was negative. He did receive IV cefazolin in the ED. He is being admitted for bilateral lower extremity cellulitis. Review of Systems Constitutional: Constitutional: Denies chills, Denies headache(s), Reports weakness (Transient weakness in left hand (? cramp)) and Denies weight loss Eyes: Eyes: Denies blurry vision, Denies change in vision, Denies diplopia and Denies loss of vision ENT: Denies dysphagia, Denies vertigo, Denies dizziness, Denies headache(s), Denies lip swelling and Denies sore throat Cardiovascular: Cardiovascular: Denies chest pain, Reports leg edema, Denies lightheadedness, Denies palpitations and Denies dyspnea Respiratory: Respiratory: Denies no additional respiratory complaints, Denies cough, Denies dyspnea and Denies wheezing Gastrointestinal: Gastrointestinal: Denies coffee ground emesis, Denies constipation, Denies dysphagia, Denies diarrhea, Denies nausea and Denies vomiting Genitourinary: Genitourinary: Denies dysuria Musculoskeletal: Musculoskeletal: Denies arthralgias, Denies muscle weakness, Denies numbness and Denies tingling Integumentary/Breasts: Skin/Breast: Denies bleeding lesions, Denies new lesions, Reports erythema (Redness on bilateral lower extremities) and Denies rash Neurologic: Denies vertigo, Denies dizziness, Denies headache(s), Denies loss of vision, Denies numbness, Denies tingling and Reports weakness (Transient weakness in left hand (? cramp)) Psychiatric: Psychiatric: Denies anxiety and Denies depression Endocrine: Endocrine: Denies cold intolerance, Denies heat intolerance and Denies palpitations Hematologic/Lymphatic: Hematologic/Lymphatic: Denies easy bleeding, Denies easy bruising and Denies lymphadenopathy Allergic/Immunologic: Allergic/Immunologic: Denies lip swelling and Denies wh eezing [facility] Medical History (Updated 05/08/21 @ 03:08 by Joshua Sheikh MD) Anticoagulated on warfarin Brain cancer Chronic GERD Colon cancer Diabetes 1.5, managed as type 2 Difficulty walking DVT (deep venous thrombosis) Hypertension, essential Liver lesion Lung nodule Pancytopenia Family History Father HTN (hypertension) Mother Hyperlipidemia Maternal Grandfather No problems noted. Maternal Grandmother Mental health disorder Paternal Grandfather No problems noted. Paternal Grandmother No problems noted. Family history: reviewed and not pertinent Social History Alcohol intake: never Patient Tobacco Use Status: Never used Tobacco e-Cigarette/Vaping Use: Never Used Use of substances other than those prescribed or required for medical reasons: No Advance Directives: No Advance Directives Information Provided: Yes Meds Allergies Allergy/AdvReac Type Severity Reaction Status Date / Time No Known Allergies Allergy Verified 05/07/21 21:52 [No Known Allergies*] Active Medications: Current Medications Generic Name Dose Route Start Last Admin Trade Name Freq PRN Reason Stop Dose Admin Acetaminophen 650 mg 05/08/21 02:47 Acetaminophen 325 Mg Tablet PO Q6H PRN Pain, Mild (Pain Scale 1-3) Cefazolin Sodium 2 gm/ Sodium 50 mls @ 100 mls/hr 05/08/21 10:00 Chloride IV Q8H [facility] Sodium Chloride 3 ml 05/08/21 08:00 0.9 % Sodium Chloride Flush 3 Ml Syringe IVFLUSH QSHIFT [facility] Home Medications Medication Instructions Recorded Confirmed Last Taken Type Centrum Men 05/08/21 Unknown History glipizide 5 mg tablet 1 tab PO BID 05/08/21 05/08/21 Unknown History lisinopril 20 1 tab PO DAILY 05/08/21 05/08/21 Unknown History mg-hydrochlorothiazide 25 mg tablet omeprazole 20 mg capsule,delayed 1 cap PO DAILY 05/08/21 05/08/21 Unknown History release warfarin 5 mg tablet 1 tab PO DAILY@1700 05/08/21 05/08/21 Unknown History Physical Exam Vital Signs and Narrative: Vital Signs: Last Vital Signs Temp 99.9 F 05/08/21 02:47 Pulse 92 05/08/21 02:47 Resp 18 05/08/21 02:47 BP 109/60 05/08/21 02:47 Pulse Ox 99 05/08/21 02:47 Body Mass Index 31.7 Const: General: no acute distress, well developed and alert HENMT: Face and sinus: Yes normal facial exam and Yes face symmetric Mouth: Normal oral and palatal mucosa present and moist mucous membranes Throat: Yes posterior oropharynx normal and Yes tonsils normal Eyes: General: appearance normal, both eyes and all related structures A lignment and Position: alignment normal and position normal Sclerae: sclerae normal Pupils: Equal, round and reactive pupils present EOM: EOMs intact bilaterally Neck: Yes normal visual inspection, Yes full ROM and Yes no lymphadenopathy Lymphatic: no lymphadenopathy noted Chest: Chest palpation & inspection: normal inspection of the chest, no tenderness and No rash Resp: Effort & Inspection: normal respiratory effort and able to speak in complete sentences Auscultation: clear to auscultation bilaterally, no c rackles, no rales, no rhonchi and no wheezes Cardio: Rate: regular rate Rhythm: regular rhythm Heart sounds: S1 normal heart sound present, S2 normal heart sound present, no murmurs and no rub s GI: Inspection: No distended Palpation (GI): Soft to palpation and nontender Percussion: No tympanic to percussion Auscultation: normal bowel sounds Skin: Rashes: no rashes Trauma: no lacerations or abrasions Wounds: no wounds Neuro: Cranial nerves: Yes CN's II-XII intact bilaterally, Yes Equal, round and reactive pupils present and Yes Bilaterally intact EOM present Extrem: General: Yes full ROM and Yes no pedal edema Psych: Appearance: grossly normal Mental Status: mental status grossly normal Speech and movement: Normal speech and movement present Affect: normal affect Thought process: Normal thought process present Results Labs CBC and Chem 7: 05/08/21 00:07 05/08/21 00:07 Labs: Laboratory Results - last 24 hr 05/08/21 05/08/21 05/08/21 00:07 00:07 00:07 MCV 93.3 MCH 31.5 MCHC 33.8 RDW 15.1 Plt Count 73 L MPV 9.6 Immature Gran % (Auto) 0.9 H Neut % (Auto) 60.2 Lymph % (Auto) 21.8 [place] % (Auto) 15.6 H Eos % (Auto) 0.9 Baso % (Auto) 0.6 Lymph # (Auto) 0.7 L [place] # (Auto) 0.5 Eos # (Auto) 0.0 Baso # (Auto) 0.0 Abs Immat Gran (auto) 0.03 Absolute Neuts (auto) 2.0 Absolute Nucleated RBC 0.000 Nucleated RBC % (auto) 0.0 PT 34.8 H D INR 3.0 H APTT 43.7 H Anion Gap 12 Estim Creat Clear Calc 72.6 Estimated GFR > 60 Random Glucose 104 D Lactic Acid Calcium 8.1 L Total Bilirubin 0.8 AST 65 H ALT 114 H Alkaline Phosphatase 156 H D Total Protein 6.4 L Albumin 3.1 L Urine Color Urine Appearance Urine pH Ur Specific [place] Urine Protein Urine Glucose (UA) Urine Ketones Urine Blood Urine Nitrite Ur Leukocyte Esterase COVID-19 (DILSHAD) COVID-19 Clin Com 05/08/21 05/08/21 05/08/21 00:07 00:07 00:30 MCV MCH MCHC RDW Plt Count MPV Immature Gran % (Auto) Neut % (Auto) Lymph % (Auto) [place] % (Auto) Eos % (Auto) Baso % (Auto) Lymph # (Auto) [place] # (Auto) Eos # (Auto) Baso # (Auto) Abs Immat Gran (auto) Absolute Neuts (auto) Absolute Nucleated RBC Nucleated RBC % (auto) PT INR APTT Anion Gap Estim Creat Clear Calc Estimated GFR Random Glucose Lactic Acid 1.1 Calcium Total Bilirubin AST ALT Alkaline Phosphatase Total Protein Albumin Urine Color YELLOW Urine Appearance CLEAR Urine pH 6.5 Ur Specific [place] 1.010 Urine Protein TRACE Urine Glucose (UA) NEG Urine Ketones NEG Urine Blood NEG Urine Nitrite NEG Ur Leukocyte Esterase NEG COVID-19 (DILSHAD) Negative COVID-19 Clin Com See Note Imaging Radiologist's Impressions: Impressions Chest X-Ray 05/07/21 23:19 IMPRESSION: 1. No acute airspace disease. 2. Redemonstration of multiple right lung masses. Assessment and Plan (1) Bilateral cellulitis of lower leg: Status: Acute (2) Fever: Status: Acute (3) Metastatic colon cancer to liver: Status: Acute (4) Pancytopenia: Status: Acute (5) Personal history of pulmonary embolism: Status: Acute (6) Current use of anticoagulant therapy: Status: Acute (7) Hypertension, essential: Status: Acute (8) Chronic GERD: Status: Acute (9) Diabetes 1.5, managed as type 2: Status: Acute Bilateral cellulitis of lower Leg: -patient does have erythema of bilateral lower extremities, but I am unclear if this really is cellulitis versus something else (perhaps vasculitis, allergic reaction), other) -patient does not describe any burning or itching sensation, no tenderness to palpation at all -And the bilateral nature of this is also unusual for cellulitis -however, patient does have fever (101.2? F), and is pancytopenic, therefore will continue to treat with IV cefazolin 2 g q.8 hours -morning team can consider Infectious Disease consult for their opinion -with regards to possible allergic reaction, patient has not been on any new medications recently, and his last chemotherapy was in 2018 Fever: -patient with fever of 101.2? F in the ED -treatment of possible cellulitis as per above -chest x-ray, urinalysis and COVID were negative for acute infection -morning team can consider Infectious Disease consult Metastatic colon cancer to the liver: -chronic, patient follows with Dr. Marcelo -morning team can consider Oncology consult if necessary -patient's last radiation therapy was on 04/21/2021 -patient's last chemotherapy was in 2018 Pancytopenia: -likely secondary to cancer, radiation therapy and prior chemotherapy Personal history of pulmonary emboli: -patient continues on warfarin -daily INRs -INR in the ED was therapeutic at 3.0 Current use of anticoagulation therapy: -as per above, continue home warfarin, daily INRs Hypertension: -blood pressure in the ED was a been on the softer side (systolics 99 to 110) -I will hold home antihypertensive medications for now, especially given his pancytopenia, fever, and concern for early sepsis -morning team can add back home antihypertensive medications if appropriate GERD: -continue home medications Diabetes mellitus: -holding home glipizide -insulin sliding scale with blood sugar checks FEN: Regular diet CODE STATUS:DNR DISPO: Admit to Observation Quality Stroke Does the patient have a stroke diagnosis?: No VTE Prior VTE?: Yes VTE Risk Level:: Medical - moderate - high VTE Device Contraindication: Treatment Not Indicated VTE Drug Contraindication: Treatment Not Indicated
[2021-05-08 07:14] LABS: Glucose, Whole Blood 84 mg/dL (60-115)
--- NOTE | 2021-05-08 08:34 | MHC.CM.PN ---
CM met with Patient and Granddaughter at bedside and addressed WHELAN, providing them with the original and placing a copy on the chart. Patient lives in a house with his and Granddaughter and he uses both a cane and walker to assist with mobility. Patient's goal is to return home with continued family care/assistance and CM has initiated and will follow for dc planning. PCP is listed as Dr. Alexus Marcelo.
[2021-05-08 09:07] LABS: MANUAL DIFF FLAG NO
[2021-05-08 09:10] LABS: Basophils Percent Auto 0.3 % (0-2); Hematocrit 28.7 % (42-52); Hemoglobin 9.7 g/dl (14.0-18.0); Imm Gran Abs Auto 0.02 X10*3/uL (0.00-0.03); Imm Gran Pct Auto 0.7 % (0.0-0.4); Lymphocytes Absolute Auto 0.7 X10*3/uL (1.2-4.9); Lymphocytes Percent Auto 21.7 % (20-40); Mean Corpuscular HGB Conc 33.8 g/dl (31.0-36.0); Mean Corpuscular Hemoglobin 31.5 pg (27.0-33.0); Mean Corpuscular Volume 93.2 fL (80-98); Mean Platelet Volume 9.8 fL (9.4-12.4); Monocytes Absolute Auto 0.5 X10*3/uL (0.1-1.2); Monocytes Percent Auto 17.8 % (2-11); Neutrophils Absolute Auto 1.8 X10*3/uL (2.0-8.3); Neutrophils Percent Auto 58.5 % (45-73); Platelet Count 69 X10*3/uL (160-400); Red Blood Count 3.08 X10*6/uL (4.60-5.80); Red Cell Distribution Width 15.2 % (11.0-16.0)
[2021-05-08 09:17] LABS: Prothrombin Time 35.2 SEC (9.9-13.0)
[2021-05-08 09:48] LABS: Anion Gap 13 (12-20); Blood Urea Nitrogen 18 mg/dL (9-16); Calcium 7.7 mg/dL (8.4-10.2); Carbon Dioxide 23 mmol/L (22-29); Chloride 97 mmol/L (96-108); Creatinine Clr Calc Pharmacy 82.1; Estimated Glomerular Filt Rate > 60; Glucose Random 113 mg/dL (60-115); Potassium 3.7 mmol/L (3.3-5.1); Sodium 129 mmol/L (135-145)
[2021-05-08] MEDS: 0.9 % Sodium Chloride Flush 3 ML SYRINGE IVFLUSH ×3 (10:02→20:45)
[2021-05-08] MEDS: Omeprazole 20 MG CAPSULE.DR PO (10:02)
[2021-05-08 11:27] LABS: Glucose, Whole Blood 135 mg/dL (60-115)
--- NOTE | 2021-05-08 14:23 | PM.EVENT ---
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 Marcelo (has had radiation therapy recently), also has history of prior DVT (on warfarin), GERD, diabetes mellitus (non-insulin dependent), hypertension, who presents because of redness on his bilateral lower extremities.? ?Bilateral lower leg rash: -patient does have erythema of bilateral lower extremities, cellulitis versus something else (perhaps vasculitis, allergic reaction), other) -continue IV ancef for now -ID consult Fever: 101.2? F in the ED, no further fever -treatment of possible cellulitis as per above -chest x-ray, urinalysis and COVID were negative for acute infection -ID consult as above Hyponatremia Sodium 129 -check urine studies -follow BMP Metastatic colon cancer to the liver: -chronic, patient follows with Dr. Marcelo -patient's last radiation therapy was on 04/21/2021 -patient's last chemotherapy was in 2018 Elevated LFTs likely r/t liver mets Pancytopenia: -likely secondary to cancer, radiation therapy and prior chemotherapy -follow CBC -no indication for blood transfusion history of pulmonary emboli: INR therapeutic at 3.0 -continues on warfarin -follow daily INRs Hypertension: -blood pressure in the ED was a been on the softer side (systolics 99 to 110) -lisinopril, HCTZ on hold GERD: -continue home medications Diabetes mellitus: -holding home glipizide -insulin sliding scale with blood sugar checks attending - dr schroeder dvt ppx - coumadin
[2021-05-08 14:56] LABS: Osmolality, Serum 268 mosm/kg (281-305)
[2021-05-08 15:21] LABS: Osmolality Urine 671 mosm/kg (373-1093)
[2021-05-08 16:17] LABS: Glucose, Whole Blood 148 mg/dL (60-115)
[2021-05-08] MEDS: Warfarin Sodium 5 MG TABLET PO (17:40)
[2021-05-08 20:43] LABS: Glucose, Whole Blood 198 mg/dL (60-115)
[2021-05-08] MEDS: Insulin Lispro 100 UNIT/ML 3 ML VIAL SUBCUT (20:45)
--- NOTE | 2021-05-08 22:22 | P.CNID_ITS ---
History of Present Illness Data of Consult Service Date: 05/08/21 Requesting physician: Missy Kelley Primary Care Provider: Alexus AZUL Reason for consult: bilateral redness legs He has had redness bilateral lower extremities for a week He has no tinea pedis. He has no fever Review of Systems Review of Systems: Yes all other systems are reviewed and are negative PMFSH Past Medical History Medical History Anticoagulated on warfarin Brain cancer Chronic GERD Colon cancer Diabetes 1.5, managed as type 2 Difficulty walking DVT (deep venous thrombosis) Hypertension, essential Liver lesion Lung nodule Pancytopenia Family History Family History Father HTN (hypertension) Mother Hyperlipidemia Maternal Grandfather No problems noted. Maternal Grandmother Mental health disorder Paternal Grandfather No problems noted. Paternal Grandmother No problems noted. Family history: reviewed and not pertinent Social History Social History Household Members: Significant Other and Family Household Members Other:: , grandaughter Housing: House Do you presently have visiting nurse or other home services: No Alcohol intake: never Patient Tobacco Use Status: Never used Tobacco e-Cigarette/Vaping Use: Never Used Use of substances other than those prescribed or required for medical reasons: No Advance Directives: No Advance Directives Information Provided: No service: No Current occupational status: retired Meds Allergies Allergy/AdvReac Type Severity Reaction Status Date / Time No Known Allergies Allergy Verified 05/07/21 21:52 [No Known Allergies*] Active Medications: Current Medications Generic Name Dose Route Start Last Admin Trade Name Freq PRN Reason Stop Dose Admin Acetaminophen 650 mg 05/08/21 02:47 Acetaminophen 325 Mg Tablet PO Q6H PRN Pain, Mild (Pain Scale 1-3) Artificial Tears 1 drop 05/08/21 11:33 Artificial Tears 15 Ml Drops EYE-BOTH Q4H PRN Dry Eyes Dextrose 25 gm 05/08/21 03:19 Dextrose 50 % 25 Gm/50 Ml Vial IVPUSH Q15M PRN per Hypoglycemia Standing Ord. Protocol Glucose 15 gm 05/08/21 03:19 Glucose Gel 15 Gm Gel..Gram. PO Q15M PRN per Hypoglycemia Standing Ord. Protocol Cefazolin Sodium 2 gm/ Sodium 50 mls @ 100 mls/hr 05/08/21 10:00 05/08/21 18:32 Chloride IV Infused Q8H [facility] Infusion Insulin Human Lispro 0 - 10 unit 05/08/21 07:30 05/08/21 20:45 Insulin Lispro 100 Unit/Ml 3 Ml Vial SUBCUT 2 unit QIDACHS [facility] Administration Protocol Omeprazole 20 mg 05/08/21 09:00 05/08/21 10:02 Omeprazole 20 Mg Capsule. PO 20 mg DAILY AC Administration Sodium Chloride 3 ml 05/08/21 08:00 05/08/21 20:45 0.9 % Sodium Chloride Flush 3 Ml Syringe IVFLUSH 3 ml QSHIFT [facility] Administration Warfarin Sodium 5 mg 05/08/21 17:00 05/08/21 17:40 Warfarin Sodium 5 Mg Tablet PO 5 mg DAILY@1700 [facility] Administration Home Medications Medication Instructions Recorded Confirmed Last Taken Type glipizide 5 mg tablet 5 mg PO DAILY@0730 05/08/21 05/14/21 05/14/21 History lisinopril 20 1 tab PO DAILY 05/08/21 05/14/21 05/14/21 History mg-hydrochlorothiazide 25 mg tablet omeprazole 20 mg capsule,delayed 20 mg PO DAILY 05/08/21 05/14/21 Unknown History release multivit,Ca,min-iron 8 mg-folic 1 tab PO DAILY 05/14/21 05/14/21 Unknown History acid 200 mcg-lycopene 600 mcg tablet (Centrum Men) sennosides 8.6 mg-docusate sodium 1 tab PO DAILY PRN 05/14/21 05/14/21 Unknown History 50 mg tablet (Senna Plus) warfarin 5 mg tablet 5 mg PO SUTUTHSA@1800 05/14/21 05/14/21 05/13/21 History warfarin 7.5 mg tablet 7.5 mg PO MOWEFR@1800 05/14/21 05/14/21 05/12/21 History Physical Exam Vital Signs: Vital Signs: Last Vital Signs Temp 99.0 F 05/08/21 19:47 Pulse 100 05/08/21 19:47 Resp 18 05/08/21 19:47 BP 132/73 05/08/21 19:47 Pulse Ox 98 05/08/21 19:47 Body Mass Index 31.7 Const: General: cooperative HENMT: Head: Yes normal to inspection Mouth: Normal oral and palatal mucosa present Resp: Effort & Inspection: normal respiratory effort Cardio: Rate: regular rate GI: Palpation (GI): Soft to palpation and nontender Skin: General skin exam: no rashes or lesions noted Extrem: Other: bilateral lower extremities red splotchy areas .5 cm around hair follicles Results Labs CBC & Chem 7: 05/09/21 08:34 05/09/21 08:34 Labs: Short CBC 05/08/21 05/08/21 Range/Units 00:07 07:35 WBC 3.4 L 3.0 L (4.8-10.8) X10*3/uL Hgb 10.3 L D 9.7 L (14.0-18.0) g/dl Hct 30.5 L D 28.7 L (42-52) % Plt Count 73 L 69 L (160-400) X10*3/uL BMP 05/08/21 05/08/21 00:07 07:35 Sodium 130 L 129 L Potassium 4.3 3.7 Chloride 97 97 Carbon Dioxide 25 23 BUN 20 H 18 H Creatinine 0.95 0.84 Calcium 8.1 L 7.7 L Liver Function 05/08/21 Range/Units 00:07 Total Bilirubin 0.8 (0.0-1.0) mg/dL AST 65 H (5-37) U/L ALT 114 H (0-40) U/L Alkaline Phosphatase 156 H D (39-117) U/L Albumin 3.1 L (3.5-5.0) g/dL Urine 05/08/21 Range/Units 00:30 Urine Color YELLOW Urine Appearance CLEAR Urine pH 6.5 (5.0-8.0) Ur Specific [place] 1.010 (1.005-1.025) Urine Protein TRACE (NEG-TRACE) MG/DL Urine Glucose (UA) NEG (NEG) MG/DL Assessment and Plan (1) Fever: Status: Acute This appears more vasculitic ,affectin bilateral legs He has fever suggest IV Kefzol cover above,[po Keflex outpt 7 d Consider biopsy skin (2) Personal history of pulmonary embolism: Status: Acute
[2021-05-09 03:48] VITALS: BP 108/70; PULSE 90; RESP 16; TEMP 36.6; O2SAT 99
[2021-05-09 07:18] LABS: Glucose, Whole Blood 111 mg/dL (60-115)
[2021-05-09 07:58] VITALS: BP 114/65; PULSE 90; RESP 20; TEMP 36.9; O2SAT 97
[2021-05-09] MEDS: 0.9 % Sodium Chloride Flush 3 ML SYRINGE IVFLUSH (08:35)
[2021-05-09] MEDS: Omeprazole 20 MG CAPSULE.DR PO (08:35)
[2021-05-09 08:45] LABS: Hematocrit 29.3 % (42-52); Mean Corpuscular HGB Conc 34.1 g/dl (31.0-36.0); Mean Corpuscular Hemoglobin 31.5 pg (27.0-33.0); Mean Corpuscular Volume 92.4 fL (80-98); Red Blood Count 3.17 X10*6/uL (4.60-5.80); Red Cell Distribution Width 14.6 % (11.0-16.0); White Blood Count 3.2 X10*3/uL (4.8-10.8)
[2021-05-09 08:46] LABS: Platelet Count 67 X10*3/uL (160-400)
[2021-05-09 08:52] LABS: INTERNATIONAL NORM RATIO 3.3 (0.9-1.1); Prothrombin Time 38.1 SEC (9.9-13.0)
[2021-05-09 09:19] LABS: Anion Gap 15 (12-20); Blood Urea Nitrogen 14 mg/dL (9-16); Calcium 7.9 mg/dL (8.4-10.2); Carbon Dioxide 23 mmol/L (22-29); Chloride 98 mmol/L (96-108); Creatinine Clr Calc Pharmacy 84.1; Estimated Glomerular Filt Rate > 60; Glucose Random 116 mg/dL (60-115); Potassium 4.2 mmol/L (3.3-5.1); Sodium 132 mmol/L (135-145)
[2021-05-09 11:24] LABS: Glucose, Whole Blood 186 mg/dL (60-115)
[2021-05-09 11:39] VITALS: BP 99/63; PULSE 97; RESP 17; TEMP 36.3; O2SAT 96
[2021-05-09] MEDS: Insulin Lispro 100 UNIT/ML 3 ML VIAL SUBCUT (11:40)
[2021-05-09] MEDS: Lidocaine HCl 1 % 20 ML VIAL 5 ML INFILTRATI (13:46)
--- NOTE | 2021-05-09 13:59 | P.CONGS_ITS ---
History of Present Illness Consult details Consult date: 05/09/21 Reason for consult: other (b/l LE rash) Requesting physician: Missy Kelley Narrative: 80-year-old Slovenian speaking male with history of metastatic colon cancer, history of prior DVT (on warfarin), diabetes mellitus who presented to ED because of rash on his legs.?Patient reports this developed Wednesday and was present on both shins extending up into the thigh region. It is itchy and associated with fevers. He denies abdominal pain, nausea, diarrhea. No new medications, recent travel, trauma to legs. Most recent radiation therapy was on 04/21/2021. In the ED, he was febrile to 101.2? F, with a heart rate as high as 107, labs demonstrated chronic pancytopenia.? Chest x-ray and urinalysis was negative for any acute pathology.? He was admitted to the medical service for treatment of bilateral lower extremity cellulitis and started on Kefzol. He was seen by ID who questioned vasculitis and surgery was therefore consulted for skin biopsy. The patient and niece report no improvement in the leg redness. The rash remains itchy. Review of Systems Constitutional: Constitutional: Denies chills, Denies fatigue and Reports fever(s) ENT: Denies dizziness Cardiovascular: Cardiovascular: Denies chest pain, Denies palpitations and Denies dyspnea Respiratory: Respiratory: Denies cough and Denies dyspnea Gastrointestinal: Gastrointestinal: Denies abdominal pain, Denies diarrhea, Denies nausea and Denies vomiting Genitourinary: Genitourinary: Denies dysuria Neurologic: Denies dizziness Endocrine: Endocrine: Denies fatigue and Denies palpitations PMFSH Past Medical History Medical History Anticoagulated on warfarin Brain cancer Chronic GERD Colon cancer Diabetes 1.5, managed as type 2 Difficulty walking DVT (deep venous thrombosis) Hypertension, essential Liver lesion Lung nodule Pancytopenia Family History Family History Father HTN (hypertension) Mother Hyperlipidemia Maternal Grandfather No problems noted. Maternal Grandmother Mental health disorder Paternal Grandfather No problems noted. Paternal Grandmother No problems noted. Family history: reviewed and not pertinent Social History Social History Alcohol intake: never Patient Tobacco Use Status: Never used Tobacco e-Cigarette/Vaping Use: Never Used service: No Current occupational status: retired Meds Allergies Allergy/AdvReac Type Severity Reaction Status Date / Time No Known Allergies Allergy Verified 05/07/21 21:52 [No Known Allergies*] Active Medications: Current Medications Generic Name Dose Route Start Last Admin Trade Name Freq PRN Reason Stop Dose Admin Acetaminophen 650 mg 05/08/21 02:47 Acetaminophen 325 Mg Tablet PO Q6H PRN Pain, Mild (Pain Scale 1-3) Artificial Tears 1 drop 05/08/21 11:33 Artificial Tears 15 Ml Drops EYE-BOTH Q4H PRN Dry Eyes Dextrose 25 gm 05/08/21 03:19 Dextrose 50 % 25 Gm/50 Ml Vial IVPUSH Q15M PRN per Hypoglycemia Standing Ord. Protocol Glucose 15 gm 05/08/21 03:19 Glucose Gel 15 Gm Gel..Gram. PO Q15M PRN per Hypoglycemia Standing Ord. Protocol Cefazolin Sodium 2 gm/ Sodium 50 mls @ 100 mls/hr 05/08/21 10:00 05/09/21 10:16 Chloride IV Infused Q8H [facility] Infusion Insulin Human Lispro 0 - 10 unit 05/08/21 07:30 05/09/21 11:40 Insulin Lispro 100 Unit/Ml 3 Ml Vial SUBCUT 2 unit QIDACHS [facility] Administration Protocol Omeprazole 20 mg 05/08/21 09:00 05/09/21 08:35 Omeprazole 20 Mg Capsule.Dr PO 20 mg DAILY [facility] Administration Sodium Chloride 3 ml 05/08/21 08:00 05/09/21 08:35 0.9 % Sodium Chloride Flush 3 Ml Syringe IVFLUSH 3 ml QSHIFT [facility] Administration Warfarin Sodium 5 mg 05/08/21 17:00 05/08/21 17:40 Warfarin Sodium 5 Mg Tablet PO 5 mg DAILY@1700 AC Administration Home Medications Medication Instructions Recorded Confirmed Last Taken Type Centrum Men 05/08/21 Unknown History glipizide 5 mg tablet 1 tab PO BID 05/08/21 05/08/21 Unknown History lisinopril 20 1 tab PO DAILY 05/08/21 05/08/21 Unknown History mg-hydrochlorothiazide 25 mg tablet omeprazole 20 mg capsule,delayed 1 cap PO DAILY 05/08/21 05/08/21 Unknown History release warfarin 5 mg tablet 1 tab PO DAILY@1700 05/08/21 05/08/21 Unknown History Physical Exam Vital Signs: Vital Signs: Last Vital Signs Temp 97.4 F 05/09/21 11:39 Pulse 97 05/09/21 11:39 Resp 17 05/09/21 11:39 BP 99/63 05/09/21 11:39 Pulse Ox 96 05/09/21 11:39 Body Mass Index 31.7 Const: General: comfortable and no acute distress Orientation/consciousness: patient oriented x3 Eyes: Sclerae: sclerae normal Neck: Neck: Yes trachea midline Resp: Effort & Inspection: normal respiratory effort Cardio: Rate: regular rate GI: Inspection: No distended Palpation (GI): Soft to palpation and nontender Neuro: General: patient oriented x3 Extrem: Other: b/l lower extremities- erythematous confluent patches over mid to distal tibial region, R>L with associated excoriations, b/l pitting edema, areas of erythematous patches extend into upper medial thigh of RLE. Results Labs Result diagrams: 05/09/21 08:34 05/09/21 08:34 Labs: Abnormal lab results 05/08/21 05/08/21 05/08/21 Range/Units 07:35 16:13 20:39 WBC (4.8-10.8) X10*3/uL RBC (4.60-5.80) X10*6/uL Hgb (14.0-18.0) g/dl Hct (42-52) % Plt Count (160-400) X10*3/uL MPV (9.4-12.4) fL PT (9.9-13.0) SEC INR (0.9-1.1) Sodium (135-145) mmol/L POC Glucose 148 H 198 H (60-115) mg/dL Random Glucose (60-115) mg/dL Osmolality 268 L (281-305) mosm/kg Calcium (8.4-10.2) mg/dL 05/09/21 05/09/21 05/09/21 Range/Units 08:34 08:34 08:34 WBC 3.2 L (4.8-10.8) X10*3/uL RBC 3.17 L (4.60-5.80) X10*6/uL Hgb 10.0 L (14.0-18.0) g/dl Hct 29.3 L (42-52) % Plt Count 67 L (160-400) X10*3/uL MPV 9.0 L (9.4-12.4) fL PT 38.1 H (9.9-13.0) SEC INR 3.3 H (0.9-1.1) Sodium 132 L (135-145) mmol/L POC Glucose (60-115) mg/dL Random Glucose 116 H (60-115) mg/dL Osmolality (281-305) mosm/kg Calcium 7.9 L (8.4-10.2) mg/dL 05/09/21 Range/Units 11:16 WBC (4.8-10.8) X10*3/uL RBC (4.60-5.80) X10*6/uL Hgb (14.0-18.0) g/dl Hct (42-52) % Plt Count (160-400) X10*3/uL MPV (9.4-12.4) fL PT (9.9-13.0) SEC INR (0.9-1.1) Sodium (135-145) mmol/L POC Glucose 186 H (60-115) mg/dL Random Glucose (60-115) mg/dL Osmolality (281-305) mosm/kg Calcium (8.4-10.2) mg/dL Short CBC 05/09/21 Range/Units 08:34 WBC 3.2 L (4.8-10.8) X10*3/uL Hgb 10.0 L (14.0-18.0) g/dl Hct 29.3 L (42-52) % Plt Count 67 L (160-400) X10*3/uL BMP 05/09/21 08:34 Sodium 132 L Potassium 4.2 Chloride 98 Carbon Dioxide 23 BUN 14 Creatinine 0.82 Calcium 7.9 L Urine 05/08/21 Range/Units 00:30 Urine Color YELLOW Urine Appearance CLEAR Urine pH 6.5 (5.0-8.0) Ur Specific [place] 1.010 (1.005-1.025) Urine Protein TRACE (NEG-TRACE) MG/DL Urine Glucose (UA) NEG (NEG) MG/DL All other labs normal. Assessment and Plan (1) Pancytopenia: Status: Acute (2) Fever: Status: Acute (3) Current use of anticoagulant therapy: Status: Acute (4) Bilateral cellulitis of lower leg: Status: Acute 80 year old male admitted for b/l LE pruritic rash associated with fevers. On IV kefzol without improvement. Surgery was consulted for punch skin biopsy which was performed at bedside after discussion of procedure and risks (bleeding, infection, poor healing) with patie nt and niece. Recommend elevation of legs to reduce edema. Continue supportive care for now. F/u pathology. Pressure dressing was placed following biopsy given supratherapeutic INR although hemostasis was already achieved from pressure. Can place dry dressings as needed to biopsy site. Procedure: The patient gave consent to the procedure following discussion of procedure and risks/benefits. The most centralized area of the rash (medial aspect of RLL of distal tibia area )was prepped with betadine. The area was infiltrated with 1% lidocaine. A punch biopsy was then performed using a 3.5m punch biopsy needle and specimen obtained. Direct pressure with gauze was held until hemostasis was achieved. The biopsy site was dressed with pressure dressing of dry fluffs and kerlix wrap. The patient tolerated the procedure well. No immediate complications. Procedures Date of Service Date of Service: 05/09/21
--- NOTE | 2021-05-09 14:06 | P.DS_ITS ---
DS: Providers Provider Date of Service: 05/09/21 Date of admission: 05/08/21 02:47 Primary care physician: Alexus Marcelo Consults: 05/08/21 10:47 Consult to Infectious Diseases Routine Consulting Provider: Alexandra Joe Reason for consultation: b/l leg rash 05/09/21 08:08 Consult to General Surgery Routine Consulting Provider: Dacia Lomax Reason for consultation: ?vasculitis of b/l legs; punch biopsy of skin Has provider been notified: No DS: Diagnosis Discharge Diagnosis (1) Fever: Status: Acute (2) Pancytopenia: Status: Acute (3) Current use of anticoagulant therapy: Status: Acute (4) Cellulitis: Status: Acute DS: Medications Discharge Medications Home Medications: Home Medications Medication Instructions Recorded Confirmed Centrum Men 05/08/21 glipizide 5 mg tablet 1 tab PO BID 05/08/21 05/08/21 lisinopril 20 1 tab PO DAILY 05/08/21 05/08/21 mg-hydrochlorothiazide 25 mg tablet omeprazole 20 mg capsule,delayed 1 cap PO DAILY 05/08/21 05/08/21 release warfarin 5 mg tablet 1 tab PO DAILY@1700 05/08/21 05/08/21 Previous Rx's Medication Instructions Recorded cephalexin 500 mg capsule 500 mg PO BID 5 Days #10 cap 05/09/21 DS: Summary Hospital Course Hospital Course: From H&P on day of admission 80-year-old male, mainly English speaking, with 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 Marcelo (has had radiation therapy recently), also has history of prior DVT (on warfarin), GERD, diabetes mellitus (non-insulin dependent), hypertension, who presents because of redness on his bilateral lower extremities.? History is from patient, patient's daughter (at bedside) and ED notes. Patient has metastatic colon cancer to the brain liver and lungs, he sees Dr. Marcelo, and his most recent radiation therapy was on 04/21/2021.? His most recent chemotherapy was in 2018. Otherwise, he has had no new medications.? He l cole with his and his neice.? On the night of 05/07/2021 (last night), he noticed redness on both legs.? He denies any itching, pain, trauma, no new medications.? Therefore he came to the ED.? he also noted transient weakness in his left hand (he was not able to open his fist), but family suspects he might have had a hand cramp; currently this has resolved.? Otherwise he denies chest pain, shortness of breath, chills, nausea, vomiting. In the ED, he was febrile to 101.2? F, with a heart rate as high as 107, labs did show his chronic pancytopenia.? Chest x-ray and urinalysis was negative for any acute infection.? His COVID was negative.? He did receive IV cefazolin in the ED.? He is being admitted for bilateral lower extremity cellulitis. Fever -possibly related to cellulitis. Patient has remained afebrile since admission. No other source of infection was identified. CXR, UA and covid were negative. Blood cultures are negative x 24 hours. Bilateral lower extremity rash. Possible cellulitis. Seen by ID recommended skin biopsy. Skin biopsy obtained 05/09. Will be discharged to complete course of antibiotics. Should follow-up with PCP to follow up on results of skin bio psy. History of PE. INR is elevated at 3.3 today. Patient has been instructed to hold Coumadin until Wednesday. He should have INR rechecked on Wednesday and dose Coumadin accordingly. Family reports that he has an INR check scheduled on Wednesday already. Hypertension. blood pressure has been soft. Recommend holding lisinopril/hydrochlorothiazide combination until patient can be seen in follow- up with PCP. Patient has been instructed to call PCP to schedule appointment. Lower extremity edema. Chronic per family report. Can continue to use [place] stockings and keep legs elevated. Pancytopenia. Labs at baseline. Time Spent with Patient Time attestation: Total time spent providing and/or coordinating discharge services: Discharge coordination time: Greater than 30 minutes Quality: Stroke Does the patient have a stroke diagnosis?: No Physical Exam Vital Signs: Vital Signs: Last Vital Signs Temp 97.4 F 05/09/21 11:39 Pulse 97 05/09/21 11:39 Resp 17 05/09/21 11:39 BP 99/63 05/09/21 11:39 Pulse Ox 96 05/09/21 11:39 Body Mass Index 31.7 Const: Nutritional Appearance: well nourished HENMT: Head: Yes normocephalic and Yes atraumatic Eyes: Sclerae: sclerae normal Chest: Chest palpation & inspection: normal inspection of the chest Resp: Effort & Inspection: normal respiratory effort and no respiratory distr ess Cardio: Rate: regular rate Rhythm: regular rhythm GI: Palpation (GI): Soft to palpation and nontender Neuro: Cranial nerves: Yes CN's II-XII intact bilaterally and Yes Bilaterally intact EOM present DS: Data Data Completed and Pending Pending studies at discharge: Pending at discharge 05/09/21 13:08 Surgical [PTH] Routine Labs on day of discharge: Laboratory Results - last 24 hr 05/08/21 05/08/21 05/08/21 00:30 00:30 07:35 WBC RBC Hgb Hct MCV MCH MCHC RDW Plt Count MPV Absolute Nucleated RBC Nucleated RBC % (auto) PT INR Sodium Potassium Chloride Carbon Dioxide Anion Gap BUN Creatinine Estim Creat Clear Calc Estimated GFR POC Glucose Random Glucose Osmolality 268 L Calcium Urine Osmolality 671 Ur Random Sodium 42.0 05/08/21 05/08/21 05/09/21 16:13 20:39 07:14 WBC RBC Hgb Hct MCV MCH MCHC RDW Plt Count MPV Absolute Nucleated RBC Nucleated RBC % (auto) PT INR Sodium Potassium Chloride Carbon Dioxide Anion Gap BUN Creatinine Estim Creat Clear Calc Estimated GFR POC Glucose 148 H 198 H 111 Random Glucose Osmolality Calcium Urine Osmolality Ur Random Sodium 05/09/21 05/09/21 05/09/21 08:34 08:34 08:34 WBC 3.2 L RBC 3.17 L Hgb 10.0 L Hct 29.3 L MCV 92.4 MCH 31.5 MCHC 34.1 RDW 14.6 Plt Count 67 L MPV 9.0 L Absolute Nucleated RBC 0.000 Nucleated RBC % (auto) 0.0 PT 38.1 H INR 3.3 H Sodium 132 L Potassium 4.2 Chloride 98 Carbon Dioxide 23 Anion Gap 15 BUN 14 Creatinine 0.82 Estim Creat Clear Calc 84.1 Estimated GFR > 60 POC Glucose Random Glucose 116 H Osmolality Calcium 7.9 L Urine Osmolality Ur Random Sodium 05/09/21 11:16 WBC RBC Hgb Hct MCV MCH MCHC RDW Plt Count MPV Absolute Nucleated RBC Nucleated RBC % (auto) PT INR Sodium Potassium Chloride Carbon Dioxide Anion Gap BUN Creatinine Estim Creat Clear Calc Estimated GFR POC Glucose 186 H Random Glucose Osmolality Calcium Urine Osmolality Ur Random Sodium Preliminary micro results at discharge 05/08/21 00:07 Blood Culture - Preliminary Blood - Venous No growth after 24 hours. 05/08/21 00:07 Blood Culture - Preliminary Blood - Venous No growth after 24 hours. Discharge Plan Discharge Patient Disposition: Home, Self-Care Referrals: Juan Henning MD [Physician] - 1 Week Alexus Marcelo MD [Primary Care Provider] - 1 Week Discharge Medications: New cephalexin 500 mg capsule 500 mg PO BID 5 Days Qty: 10 RF: 0 Continued omeprazole 20 mg capsule,delayed release(DR/EC) 1 cap PO DAILY RF: 0 glipizide 5 mg tablet 1 tab PO BID RF: 0 Centrum Men RF: 0 Held warfarin 5 mg tablet 1 tab PO DAILY@1700 RF: 0 Hold Instructions: Resume on Friday 05/11. Recheck INR on 05/12 lisinopril-hydrochlorothiazide 20-25 mg tablet 1 tab PO DAILY RF: 0 Hold Instructions: Resume after follow up with PCP Discharge Orders: Discharge Order (Routine); Ordered 05/09/21 Ordered By: Missy Kelley Activity on Discharge: As tolerated Stand Alone Forms: Patient Portal Discharge page Other Ambulatory Orders: Prothrombin Time INR (Routine) Timeframe: [id number] Facility: [facility] - Location: Laboratory Ordered By: Missy Kelley Care Plan Goals: see below Health Concerns: Lower leg rash. possible cellulitis HTN Plan of Treatment: Lower leg rash, possible celluitis. Complete course of antibiotics. Follow up with PCP to follow results of skin biopsy. Can cover biopsy site with dry dressing daily if needed. HTN. Blood pressure has been on the lower side. Do not take lisinopril/hydrochlorothiazide until you follow-up with PCP. Call to schedule and appointment within the next week if possible. history of PE. INR is 3.3 today. Hold Coumadin and resume on Wednesday. Get INR checked on wednesday Assessment: See discharge summary
--- NOTE | 2021-05-09 14:12 | MHC.CM.PN ---
Patient has been medically cleared for dc to home today, no services.
[2021-05-09] MEDS: Heparin Sodium,Porcine Flush 50 UNITS, 0.9 % Sodium Chloride Flush 5 ML IVFLUSH (14:55)
== END 2021-05-09 17:05 | disposition home or self-care (01) ==
LOC: HO.ED 05-08 01:09 → HO.EDOVER 05-08 02:54 → HO.IMC 05-08 05:04
PROVIDERS: Physician Assistant Medical; Admitting Provider Internal Medicine; Emergency Provider Emergency Medicine Emergency Medical Services; PCP Internal Medicine Medical Oncology; Visit Provider Family Medicine
DX: L03.116 Cellulitis of left lower limb (principal); L03.115 Cellulitis of right lower limb; C18.9 Malignant neoplasm of colon, unspecified; C78.00 Secondary malignant neoplasm of unspecified lung; C79.31 Secondary malignant neoplasm of brain; C78.7 Secondary malignant neoplasm of liver and intrahepatic bile duct; E11.9 Type 2 diabetes mellitus without complications; I10 Essential (primary) hypertension; K21.9 Gastro-esophageal reflux disease without esophagitis; R50.9 Fever, unspecified; D61.818 Other pancytopenia; Z86.718 Personal history of other venous thrombosis and embolism; Z86.711 Personal history of pulmonary embolism; Z92.3 Personal history of irradiation; Z79.01 Long term (current) use of anticoagulants; Z79.4 Long term (current) use of insulin; Z79.899 Other long term (current) drug therapy
CPT/HCPCS: 36415; 71046; 80048; 80053; 81003; 82947; 83605; 83930; 83935; 84300; 85025; 85027; 85610; 85730; 87040; 87635; 88305; 88312; 96365; 96366; 96375; 99219; 99220; 99285; J0690; J1642

== ENCOUNTER → 2021-05-13 11:35 | Outpatient (BNVA) | payer MEDICARE, SELFPAY | PROVIDERS: PCP Internal Medicine Medical Oncology; Visit Provider Internal Medicine | DX: I26.99 Other pulmonary embolism without acute cor pulmonale (principal); Z51.81 Encounter for therapeutic drug level monitoring; Z79.01 Long term (current) use of anticoagulants | CPT/HCPCS: 85610; 99211 ==

== ENCOUNTER 2021-05-14 16:13 | Inpatient (IN) | payer MEDICARE, SELFPAY ==
[2021-05-14] VITALS (8 sets, daily range): BP systolic 105–126; BP diastolic 53–78; PULSE 75–118; RESP 15–28; TEMP 36.7–38.8; O2SAT 94–98; BMI 33.4
--- NOTE | ~2021-05-14 | CT_ITS ---
EXAMINATION: CT HEAD WITHOUT CONTRAST CLINICAL INFORMATION: Seizures. Metastatic brain disease. COMPARISON: CT head April 02, 2021. MRI of the brain April 04, 2021 TECHNIQUE: Contiguous axial imaging was performed from the skull base to vertex without intravenous administration of contrast. Coronal and sagittal reformatted images are performed at the CT scanner. [This CT examination was performed using dose optimization techniques as appropriate, variously including the following: *Automated exposure control *Adjustment of mA and/or kV according to patient size (this includes techniques or standardized protocols for targeted exams where dose is matched to indication/reason for exam; i.e. extremities or head) *Use of iterative reconstruction technique] DLP: 1641 mGy-cm. FINDINGS: The exam is limited by motion. Exam was repeated. Motion was still present even on the repeat exam however. The previously seen metastatic lesions in the brain with surrounding edema are redemonstrated. Each of these lesions remains hyperdense. The size of lesions and the severity of the surrounding edema is similar to the MR exam of April 04, 2021. 1. Left frontal lobe. Measures 1.1 cm. Previous measurement 1.2 cm. 2. Right posterior parietal lobe. Measures 3 cm. Previous measurement 2.9 cm. 3. Left frontal parietal lobe adjacent to sylvian fissure measures 2.4 cm. Previous measurement 2.5 cm. 4. Left temporal lobe lesion. This is poorly seen due to motion. This measures about 0.7 cm. Previous measurement 0.8 cm. No new lesions. No hydrocephalus. No significant midline shift. No extra-axial collection. There is no acute intracranial hemorrhage. CT/CT head/brain wo con IMPRESSION: No substantial change in the metastatic lesions in brain or the surrounding vasogenic edema since the prior MRI of the head April 04, 2021.
--- NOTE | ~2021-05-14 | XR_ITS ---
EXAMINATION: XR CHEST CLINICAL INFORMATION: Cough COMPARISON: 05/07/2021 TECHNIQUE: Frontal view of the chest was obtained. FINDINGS: Catheter unchanged in position. Overlies the superior vena cava. There is no pneumothorax. Persistent right basilar opacities. Increasing elevation of right hemidiaphragm obscured is the most inferior opacities. The left lung is comparable to previous. XR/XR chest 1V IMPRESSION: Mildly increasing elevation right hemidiaphragm compared to most recent previous. Otherwise there is been no significant change here. Right-sided lesions are noted. No convincing evidence for new process in the lungs
--- NOTE | 2021-05-14 16:18 | ED.AMS ---
HPI - Altered Mental Status General Chief Complaint: General Medical Stated Complaint: brain cancer/seizure Time Seen by Provider: 05/14/21 16:17 History of Present Illness HPI narrative: Patient history of metastatic colon cancer had MRI on 04/04 which showed multiple brain Mets specially on the right posterior parietal lobe measuring 3.5x2.9 x 2.1 cm brought by daughter for confusion and left side weakness with focal seizing activity after bedside with gaze to the left side , twitching movement of the left arm and left leg also patient is on Coumadin for DVT in the legs status post radiation treatments 04/21 when patient arrived patient's blood pressure was 126/71 pulse rate 118 aspirated 28 temperature 101.8 degrees meeting criteria for sepsis per family patient coughing for last few days Related Data Home Medications Medication Instructions Recorded Confirmed glipizide 5 mg tablet 5 mg PO DAILY@0730 05/08/21 05/14/21 lisinopril 20 1 tab PO DAILY 05/08/21 05/14/21 mg-hydrochlorothiazide 25 mg tablet omeprazole 20 mg capsule,delayed 20 mg PO DAILY 05/08/21 05/14/21 release multivit,Ca,min-iron 8 mg-folic 1 tab PO DAILY 05/14/21 05/14/21 acid 200 mcg-lycopene 600 mcg tablet (Centrum Men) sennosides 8.6 mg-docusate sodium 1 tab PO DAILY PRN 05/14/21 05/14/21 50 mg tablet (Senna Plus) warfarin 5 mg tablet 5 mg PO SUTUTHSA@1800 05/14/21 05/14/21 warfarin 7.5 mg tablet 7.5 mg PO MOWEFR@1800 05/14/21 05/14/21 Allergies Allergy/AdvReac Type Severity Reaction Status Date / Time No Known Allergies Allergy Verified 05/07/21 21:52 [No Known Allergies*] Review of Systems Review of Systems: Yes Unobtainable due to mental status PMFSH Past Medical History Medical History Anticoagulated on warfarin Brain cancer Chronic GERD Colon cancer Diabetes 1.5, managed as type 2 Difficulty walking DVT (deep venous thrombosis) Hypertension, essential Liver lesion Lung nodule Pancytopenia Family History Family History Father HTN (hypertension) Mother Hyperlipidemia Maternal Grandfather No problems noted. Maternal Grandmother Mental health disorder Paternal Grandfather No problems noted. Paternal Grandmother No problems noted. Social History Social History Household Members: Significant Other and Family Household Members Other:: , grandaughter Housing: House Do you presently have visiting nurse or other home services: No Alcohol intake: never Patient Tobacco Use Status: Never used Tobacco Smoked in Last 30 Days: No e-Cigarette/Vaping Use: Never Used Use of substances other than those prescribed or required for medical reasons: No Have you been hit, kicked, punched, or otherwise hurt by someone within the past year? If so, by whom?: No Do you feel safe in your current relationship?: Yes Is there a partner from a previous relationship who is making you feel unsafe now?: No Advance Directives: No Advance Directives Information Provided: Yes Recently lost weight without trying: Unsure service: No Current occupational status: retired Physical Exam Vital Signs: Vital Signs: Last Vital Signs Temp 97.7 F 05/15/21 00:00 Pulse 85 05/15/21 00:00 Resp 18 05/15/21 00:00 BP 115/59 L 05/15/21 00:00 Pulse Ox 97 05/15/21 00:00 Body Mass Index 33.4 Appearance: Actively seizing with twitching movement of the left side Eyes: People normal size normal reaction, No Nystagmus gaze to the left side ENT: Pharynx normal. Oral Mucosa moist Neck: Normal inspection. Neck supple. CVS: Normal heart rate and rhythm. Pulses normal. Respiratory: No respiratory distress. Equal air entry bilateral, no wheezing/rales/rhonchi Abdomen: Soft and nontender. Bowel sounds are present, no mass palpable, no CVA tenderness Skin: Skin warm and dry. Normal skin color. Normal skin turgor. Extremities: No lower extremity edema. No calf tenderness Neuro: Oriented X 3. Left-sided weakness, postictal MDM - Altered Mental Status MDM Narrative Medical decision making narrative: Patient with metastatic colon cancer to brain with new onset seizure not on prophylactic antiseizure medication was given Keppra and Ativan in the ER no active seizures in the ER after medication. Patient also has left upper extremity specially weakness at this time patient is postictal. No active bleeding or new lesions seen in the CT scan patient had fever etiology is not very clear lobe infiltrate started on Zosyn. Patient lactic acid level was elevated on arrival to 3.4 improved after hydration likely secondary to seizure activity not from severe sepsis Medical Records Attestation: I reviewed the patient's medical records. Lab Data Attestation: I reviewed the patient's lab results. Result diagrams: 05/14/21 16:52 05/14/21 16:52 Labs: Lab Results 05/14/21 05/14/21 05/14/21 Range/Units 16:17 16:52 16:52 WBC 5.0 (4.8-10.8) X10*3/uL RBC 3.24 L (4.60-5.80) X10*6/uL Hgb 10.2 L (14.0-18.0) g/dl Hct 30.3 L (42-52) % MCV 93.5 (80-98) fL MCH 31.5 (27.0-33.0) pg MCHC 33.7 (31.0-36.0) g/dl RDW 15.0 (11.0-16.0) % Plt Count 125 L D (160-400) X10*3/uL MPV 9.2 L (9.4-12.4) fL Immature Gran % (Auto) 2.6 H (0.0-0.4) % Neut % (Auto) 52.3 (45-73) % Lymph % (Auto) 25.1 (20-40) % [place] % (Auto) 19.0 H (2-11) % Eos % (Auto) 0.8 (0-4) % Baso % (Auto) 0.2 (0-2) % Lymph # (Auto) 1.3 (1.2-4.9) X10*3/uL [place] # (Auto) 1.0 (0.1-1.2) X10*3/uL Eos # (Auto) 0.0 (0.0-0.4) X10*3/uL Baso # (Auto) 0.0 (0.0-0.2) X10*3/uL Abs Immat Gran (auto) 0.13 H (0.00-0.03) X10*3/uL Absolute Neuts (auto) 2.6 (2.0-8.3) X10*3/uL Absolute Nucleated RBC 0.030 H (0.0-0.012) X10*3/uL Nucleated RBC % (auto) 0.6 H (0.0-0.2) /100WBC PT (9.9-13.0) SEC INR (0.9-1.1) APTT (24.1-38.0) SEC Sodium 131 L (135-145) mmol/L Potassium 4.6 (3.3-5.1) mmol/L Chloride 101 (96-108) mmol/L Carbon Dioxide 19 L (22-29) mmol/L Anion Gap 16 (12-20) BUN 10 (9-16) mg/dL Creatinine 0.84 (0.5-1.4) mg/dL Estim Creat Clear Calc 81.6 Estimated GFR > 60 POC Glucose 155 H (60-115) mg/dL Random Glucose 157 H D (60-115) mg/dL Lactic Acid (0.5-2.0) mmol/L Lactic Acid Fup @ 2Hr (0.5-2.0) mmol/L Calcium 8.4 D (8.4-10.2) mg/dL Magnesium 1.7 (1.6-2.6) mg/dL Total Bilirubin 0.7 (0.0-1.0) mg/dL Direct Bilirubin 0.3 (0.0-0.5) mg/dL AST 77 H (5-37) U/L ALT 102 H (0-40) U/L Alkaline Phosphatase 218 H D (39-117) U/L Total Protein 6.6 (6.5-8.0) g/dL Albumin 3.0 L (3.5-5.0) g/dL Urine Color Urine Appearance Urine pH (5.0-8.0) Ur Specific [place] (1.005-1.025) Urine Protein (NEG-TRACE) MG/DL Urine Glucose (UA) (NEG) MG/DL Urine Ketones (NEG) MG/DL Urine Blood (NEG) Urine Nitrite (NEG) Ur Leukocyte Esterase (NEG) Urine RBC (0) /HPF Urine WBC (0-4) /HPF Ur Squamous Epith Cells /LPF Urine Bacteria /LPF Urine Sperm COVID-19 (DILSHAD) (Negative) COVID-19 Clin Com 05/14/21 05/14/21 05/14/21 Range/Units 16:52 16:52 17:05 WBC (4.8-10.8) X10*3/uL RBC (4.60-5.80) X10*6/uL Hgb (14.0-18.0) g/dl Hct (42-52) % MCV (80-98) fL MCH (27.0-33.0) pg MCHC (31.0-36.0) g/dl RDW (11.0-16.0) % Plt Count (160-400) X10*3/uL MPV (9.4-12.4) fL Immature Gran % (Auto) (0.0-0.4) % Neut % (Auto) (45-73) % Lymph % (Auto) (20-40) % [place] % (Auto) (2-11) % Eos % (Auto) (0-4) % Baso % (Auto) (0-2) % Lymph # (Auto) (1.2-4.9) X10*3/uL [place] # (Auto) (0.1-1.2) X10*3/uL Eos # (Auto) (0.0-0.4) X10*3/uL Baso # (Auto) (0.0-0.2) X10*3/uL Abs Immat Gran (auto) (0.00-0.03) X10*3/uL Absolute Neuts (auto) (2.0-8.3) X10*3/uL Absolute Nucleated RBC (0.0-0.012) X10*3/uL Nucleated RBC % (auto) (0.0-0.2) /100WBC PT 24.9 H D (9.9-13.0) SEC INR 2.2 H (0.9-1.1) APTT 34.0 D (24.1-38.0) SEC Sodium (135-145) mmol/L Potassium (3.3-5.1) mmol/L Chloride (96-108) mmol/L Carbon Dioxide (22-29) mmol/L Anion Gap (12-20) BUN (9-16) mg/dL Creatinine (0.5-1.4) mg/dL Estim Creat Clear Calc Estimated GFR POC Glucose (60-115) mg/dL Random Glucose (60-115) mg/dL Lactic Acid 3.4 H* (0.5-2.0) mmol/L Lactic Acid Fup @ 2Hr (0.5-2.0) mmol/L Calcium (8.4-10.2) mg/dL Magnesium (1.6-2.6) mg/dL Total Bilirubin (0.0-1.0) mg/dL Direct Bilirubin (0.0-0.5) mg/dL AST (5-37) U/L ALT (0-40) U/L Alkaline Phosphatase (39-117) U/L Total Protein (6.5-8.0) g/dL Albumin (3.5-5.0) g/dL Urine Color Urine Appearance Urine pH (5.0-8.0) Ur Specific [place] (1.005-1.025) Urine Protein (NEG-TRACE) MG/DL Urine Glucose (UA) (NEG) MG/DL Urine Ketones (NEG) MG/DL Urine Blood (NEG) Urine Nitrite (NEG) Ur Leukocyte Esterase (NEG) Urine RBC (0) /HPF Urine WBC (0-4) /HPF Ur Squamous Epith Cells /LPF Urine Bacteria /LPF Urine Sperm COVID-19 (DILSAHD) Negative (Negative) COVID-19 Clin Com See Note 05/14/21 05/14/21 Range/Units 17:08 19:30 WBC (4.8-10.8) X10*3/uL RBC (4.60-5.80) X10*6/uL Hgb (14.0-18.0) g/dl Hct (42-52) % MCV (80-98) fL MCH (27.0-33.0) pg MCHC (31.0-36.0) g/dl RDW (11.0-16.0) % Plt Count (160-400) X10*3/uL MPV (9.4-12.4) fL Immature Gran % (Auto) (0.0-0.4) % Neut % (Auto) (45-73) % Lymph % (Auto) (20-40) % [place] % (Auto) (2-11) % Eos % (Auto) (0-4) % Baso % (Auto) (0-2) % Lymph # (Auto) (1.2-4.9) X10*3/uL [place] # (Auto) (0.1-1.2) X10*3/uL Eos # (Auto) (0.0-0.4) X10*3/uL Baso # (Auto) (0.0-0.2) X10*3/uL Abs Immat Gran (auto) (0.00-0.03) X10*3/uL Absolute Neuts (auto) (2.0-8.3) X10*3/uL Absolute Nucleated RBC (0.0-0.012) X10*3/uL Nucleated RBC % (auto) (0.0-0.2) /100WBC PT (9.9-13.0) SEC INR (0.9-1.1) APTT (24.1-38.0) SEC Sodium (135-145) mmol/L Potassium (3.3-5.1) mmol/L Chloride (96-108) mmol/L Carbon Dioxide (22-29) mmol/L Anion Gap (12-20) BUN (9-16) mg/dL Creatinine (0.5-1.4) mg/dL Estim Creat Clear Calc Estimated GFR POC Glucose (60-115) mg/dL Random Glucose (60-115) mg/dL Lactic Acid (0.5-2.0) mmol/L Lactic Acid Fup @ 2Hr 1.4 (0.5-2.0) mmol/L Calcium (8.4-10.2) mg/dL Magnesium (1.6-2.6) mg/dL Total Bilirubin (0.0-1.0) mg/dL Direct Bilirubin (0.0-0.5) mg/dL AST (5-37) U/L ALT (0-40) U/L Alkaline Phosphatase (39-117) U/L Total Protein (6.5-8.0) g/dL Albumin (3.5-5.0) g/dL Urine Color YELLOW Urine Appearance CLEAR Urine pH 6.0 (5.0-8.0) Ur Specific [place] 1.020 (1.005-1.025) Urine Protein 2+ H (NEG-TRACE) MG/DL Urine Glucose (UA) NEG (NEG) MG/DL Urine Ketones NEG (NEG) MG/DL Urine Blood TRACE (NEG) Urine Nitrite NEG (NEG) Ur Leukocyte Esterase NEG (NEG) Urine RBC 0-2 (0) /HPF Urine WBC 0 (0-4) /HPF Ur Squamous Epith Cells 1+ /LPF Urine Bacteria 1+ /LPF Urine Sperm NOTED COVID-19 (DILSHAD) (Negative) COVID-19 Clin Com Discharge Plan Discharge Clinical Impression: New onset seizure, Metastatic cancer to brain Fever Qualifiers: Fever type: unspecified Qualified Code(s): R50.9 - Fever, unspecified Patient Disposition: Admitted As Inpatient Interventions: Admission Worksheet (ED) Last Done: 05/14/21 23:36 Discharge Date/Time: 05/15/21 00:01
[2021-05-14 16:22] LABS: Glucose, Whole Blood 155 mg/dL (60-115)
[2021-05-14] MEDS: dexAMETHasone sod phosphate 10 MG/ML VIAL IVPUSH (16:30)
[2021-05-14] MEDS: LORazepam 2 MG/ML VIAL IVPUSH (16:30)
[2021-05-14] MEDS: levETIRAcetam in NaCl (iso-os) 1,000 MG/100 ML PIGGYBACK 400 MG IV (16:35)
[2021-05-14 17:03] LABS: MANUAL DIFF FLAG NO
[2021-05-14 17:05] LABS: Basophils Percent Auto 0.2 % (0-2); Eosinophils Percent Auto 0.8 % (0-4); Hematocrit 30.3 % (42-52); Hemoglobin 10.2 g/dl (14.0-18.0); Imm Gran Abs Auto 0.13 X10*3/uL (0.00-0.03); Imm Gran Pct Auto 2.6 % (0.0-0.4); Lymphocytes Absolute Auto 1.3 X10*3/uL (1.2-4.9); Lymphocytes Percent Auto 25.1 % (20-40); Mean Corpuscular HGB Conc 33.7 g/dl (31.0-36.0); Mean Corpuscular Hemoglobin 31.5 pg (27.0-33.0); Mean Corpuscular Volume 93.5 fL (80-98); Mean Platelet Volume 9.2 fL (9.4-12.4); NRBC Pct Auto 0.6 /100WBC (0.0-0.2); Neutrophils Absolute Auto 2.6 X10*3/uL (2.0-8.3); Neutrophils Percent Auto 52.3 % (45-73); Platelet Count 125 X10*3/uL (160-400); Red Blood Count 3.24 X10*6/uL (4.60-5.80)
[2021-05-14] MEDS: Acetaminophen Supp 650 MG SUPP.RECT PR (17:14)
[2021-05-14 17:18] LABS: Glucose Urine UA NEG (NEG); Leukocyte Esterase Urine NEG (NEG); Nitrite Urine NEG (NEG); UACC Culture Trigger NO; Urine Blood TRACE (NEG); Urine Ketones NEG (NEG); Urine Protein 2+ MG/DL (NEG-TRACE)
[2021-05-14 17:19] LABS: INTERNATIONAL NORM RATIO 2.2 (0.9-1.1); Prothrombin Time 24.9 SEC (9.9-13.0)
[2021-05-14 17:21] LABS: COVID-19 Test Negative (Negative); IDNOW Serial# 9DD0AD1C
--- NOTE | 2021-05-14 17:22 | PHA.MEDREC ---
MED REC COMPLETE, No issues. Patient recently complete a 5 day course of cephalexin 500 mg bid, last dose this morning, patient also used to be on dexamethasone, per family last dose was taken 05/01/21 Pharmacy Consult ? Medication Reconciliation Pharmacy has completed the medication reconciliation.
[2021-05-14 17:27] LABS: Lactic Acid 3.4 mmol/L (0.5-2.0)
[2021-05-14 17:30] LABS: Alanine Aminotransferase 102 U/L (0-40); Alkaline Phosphatase 218 U/L (39-117); Anion Gap 16 (12-20); Aspartate Amino Transferase 77 U/L (5-37); Bilirubin Direct 0.3 mg/dL (0.0-0.5); Bilirubin Total 0.7 mg/dL (0.0-1.0); Blood Urea Nitrogen 10 mg/dL (9-16); Calcium 8.4 mg/dL (8.4-10.2); Carbon Dioxide 19 mmol/L (22-29); Chloride 101 mmol/L (96-108); Creatinine Clr Calc Pharmacy 81.6; Estimated Glomerular Filt Rate > 60; Glucose Random 157 mg/dL (60-115); Magnesium 1.7 mg/dL (1.6-2.6); Potassium 4.6 mmol/L (3.3-5.1); Sodium 131 mmol/L (135-145); Total Protein 6.6 g/dL (6.5-8.0)
[2021-05-14 17:30] LABS: Appearance Urine CLEAR; Color Urine YELLOW
[2021-05-14] MEDS: 0.9 % Sodium Chloride 1,000 ML 999 ML IV (17:36)
[2021-05-14] MEDS: 0.9 % Sodium Chloride 1,000 ML 999 ML IVCONT (18:10)
[2021-05-14] MEDS: Piperacillin Sodium/Tazobactam 3.375 GM in 0.9 % Sodium Chloride 50 ML IV (18:11)
[2021-05-14] MEDS: LORazepam 2 MG/ML VIAL 1 MG IVPUSH (18:12)
[2021-05-14 18:27] LABS: Bacteria Urine 1+ /LPF; RBC Urine 0-2 /HPF (0); Sperm Urine NOTED; Squamous Epithelial Cell Urine 1+ /LPF; WBC Urine 0 /HPF (0-4)
[2021-05-14 18:59] LABS: Reflex Lactate? Lactic Acid Added
[2021-05-14 20:01] LABS: ~Lactic Acid-LAB USE ONLY 1.4 mmol/L (0.5-2.0)
--- NOTE | 2021-05-14 22:28 | PM.IMHP ---
History of Present Illness Date of Service: 05/14/21 Chief Complaint: Seizure 80-year-old male with a past medical history of hypertension, diabetes, GERD, colon cancer with metastasis to the brain-had radiotherapy on 04/21; presented to the hospital today with a chief complaint of seizure. Most of the history obtained from the patient's family/healthcare proxy. Reportedly patient was going for his appointment today and in the car he noted to have left lower extremity shaking uncontrollably; post episode patient was drowsy lethargic and probably had like choking episode; subsequently family brought him to the hospital for further evaluation given concerns for seizure episode. Denied patient having any froth in the mouth, tongue bite, urine incontinence. Patient is drowsy and lethargic, further history is limited from the patient. Review of systems limited as the patient is drowsy. ER course: Per ER team patient CT head showed no new findings were noted findings similar to the MRI in March of 2021; patient has known brain metastasis, had radiotherapy. Given a dose of Of Keppra. Admitted to the hospital for further management Patient CT scan also showed edema around the metastasis-received dexamethasone. [facility] Medical History Anticoagulated on warfarin Brain cancer Chronic GERD Colon cancer Diabetes 1.5, managed as type 2 Difficulty walking DVT (deep venous thrombosis) Hypertension, essential Liver lesion Lung nodule Pancytopenia Family History Father HTN (hypertension) Mother Hyperlipidemia Maternal Grandfather No problems noted. Maternal Grandmother Mental health disorder Paternal Grandfather No problems noted. Paternal Grandmother No problems noted. Social History Household Members: Significant Other and Family Household Members Other:: , grandaughter Housing: House Do you presently have visiting nurse or other home services: No Alcohol intake: never Patient Tobacco Use Status: Never used Tobacco e-Cigarette/Vaping Use: Never Used service: No Current occupational status: retired Meds Allergies Allergy/AdvReac Type Severity Reaction Status Date / Time No Known Allergies Allergy Verified 05/07/21 21:52 [No Known Allergies*] Active Medications: Current Medications Generic Name Dose Route Start Last Admin Trade Name Freq PRN Reason Stop Dose Admin Acetaminophen 650 mg 05/14/21 22:23 Acetaminophen Supp 650 Mg Supp.Rect AK Q6H PRN Pain, Mild (Pain Scale 1-3) Levetiracetam 1,000 mg in 100 mls @ 400 mls/hr 05/15/21 04:00 Keppra IV Q12H [facility] Dextrose/Sodium Chloride 1,000 mls @ 50 mls/hr 05/14/21 22:30 D51/2ns IVCONT .Q20H AC Piperacillin Sod/Tazobactam 50 mls @ 100 mls/hr 05/14/21 22:30 Sod 3.375 gm/ Sodium Chloride IV Q6H [facility] Pharmacy Consult 1 each 05/14/21 16:46 Consult Rx Perform Med Rec MISCELLANE ONCE PRN Consult order Sodium Chloride 3 ml 05/15/21 00:00 0.9 % Sodium Chloride Flush 3 Ml Syringe IVFLUSH QSHIFT [facility] Home Medications Medication Instructions Recorded Confirmed Last Taken Type glipizide 5 mg tablet 5 mg PO DAILY@0730 05/08/21 05/14/21 05/14/21 History lisinopril 20 1 tab PO DAILY 05/08/21 05/14/21 05/14/21 History mg-hydrochlorothiazide 25 mg tablet omeprazole 20 mg capsule,delayed 20 mg PO DAILY 05/08/21 05/14/21 Unknown History release multivit,Ca,min-iron 8 mg-folic 1 tab PO DAILY 05/14/21 05/14/21 Unknown History acid 200 mcg-lycopene 600 mcg tablet (Centrum Men) sennosides 8.6 mg-docusate sodium 1 tab PO DAILY PRN 05/14/21 05/14/21 Unknown History 50 mg tablet (Senna Plus) warfarin 5 mg tablet 5 mg PO SUTUTHSA@1800 05/14/21 05/14/21 05/13/21 History warfarin 7.5 mg tablet 7.5 mg PO MOWEFR@179905/14/21 05/14/21 05/12/21 History Physical Exam Vital Signs and Narrative: Vital Signs: Last Vital Signs Temp 98.1 F 05/14/21 21:50 Pulse 92 05/14/21 21:50 Resp 18 05/14/21 21:50 BP 113/62 05/14/21 21:50 Pulse Ox 97 05/14/21 21:50 Body Mass Index 33.4 Gen: Appears be in no acute distress HEENT: NCAT, Moist mucosa. Pulmonary: Mildly coarse breath sounds; saturating 99% on room air CVS: Normal S1-S2 Abdomen: BS+, Soft, Nontender Extremities: Warm well perfused; noted to have 3+ pitting edema. Neuro: Patient is drowsy and lethargic; moves all extremities spontaneously. Results Labs CBC and Chem 7: 05/15/21 05:44 05/15/21 05:44 Labs: Laboratory Results - last 24 hr 05/14/21 05/14/21 05/14/21 16:17 16:52 16:52 MCV 93.5 MCH 31.5 MCHC 33.7 RDW 15.0 Plt Count 125 L D MPV 9.2 L Immature Gran % (Auto) 2.6 H Neut % (Auto) 52.3 Lymph % (Auto) 25.1 [place] % (Auto) 19.0 H Eos % (Auto) 0.8 Baso % (Auto) 0.2 Lymph # (Auto) 1.3 [place] # (Auto) 1.0 Eos # (Auto) 0.0 Baso # (Auto) 0.0 Abs Immat Gran (auto) 0.13 H Absolute Neuts (auto) 2.6 Absolute Nucleated RBC 0.030 H Nucleated RBC % (auto) 0.6 H PT INR APTT Anion Gap 16 Estim Creat Clear Calc 81.6 Estimated GFR > 60 POC Glucose 155 H Random Glucose 157 H D Lactic Acid Lactic Acid Fup @ 2Hr Calcium 8.4 D Magnesium 1.7 Total Bilirubin 0.7 Direct Bilirubin 0.3 AST 77 H ALT 102 H Alkaline Phosphatase 218 H D Total Protein 6.6 Albumin 3.0 L Urine Color Urine Appearance Urine pH Ur Specific [place] Urine Protein Urine Glucose (UA) Urine Ketones Urine Blood Urine Nitrite Ur Leukocyte Esterase Urine RBC Urine WBC Ur Squamous Epith Cells Urine Bacteria Urine Sperm COVID-19 (DILSHAD) COVID-19 Clin Com 05/14/21 05/14/21 05/14/21 16:52 16:52 17:05 MCV MCH MCHC RDW Plt Count MPV Immature Gran % (Auto) Neut % (Auto) Lymph % (Auto) [place] % (Auto) Eos % (Auto) Baso % (Auto) Lymph # (Auto) [place] # (Auto) Eos # (Auto) Baso # (Auto) Abs Immat Gran (auto) Absolute Neuts (auto) Absolute Nucleated RBC Nucleated RBC % (auto) PT 24.9 H D INR 2.2 H APTT 34.0 D Anion Gap Estim Creat Clear Calc Estimated GFR POC Glucose Random Glucose Lactic Acid 3.4 H* Lactic Acid Fup @ 2Hr Calcium Magnesium Total Bilirubin Direct Bilirubin AST ALT Alkaline Phosphatase Total Protein Albumin Urine Color Urine Appearance Urine pH Ur Specific [place] Urine Protein Urine Glucose (UA) Urine Ketones Urine Blood Urine Nitrite Ur Leukocyte Esterase Urine RBC Urine WBC Ur Squamous Epith Cells Urine Bacteria Urine Sperm COVID-19 (DILSHAD) Negative COVID-19 Clin Com See Note 05/14/21 05/14/21 17:08 19:30 MCV MCH MCHC RDW Plt Count MPV Immature Gran % (Auto) Neut % (Auto) Lymph % (Auto) [place] % (Auto) Eos % (Auto) Baso % (Auto) Lymph # (Auto) [place] # (Auto) Eos # (Auto) Baso # (Auto) Abs Immat Gran (auto) Absolute Neuts (auto) Absolute Nucleated RBC Nucleated RBC % (auto) PT INR APTT Anion Gap Estim Creat Clear Calc Estimated GFR POC Glucose Random Glucose Lactic Acid Lactic Acid Fup @ 2Hr 1.4 Calcium Magnesium Total Bilirubin Direct Bilirubin AST ALT Alkaline Phosphatase Total Protein Albumin Urine Color YELLOW Urine Appearance CLEAR Urine pH 6.0 Ur Specific [place] 1.020 Urine Protein 2+ H Urine Glucose (UA) NEG Urine Ketones NEG Urine Blood TRACE Urine Nitrite NEG Ur Leukocyte Esterase NEG Urine RBC 0-2 Urine WBC 0 Ur Squamous Epith Cells 1+ Urine Bacteria 1+ Urine Sperm NOTED COVID-19 (DILSHAD) COVID-19 Clin Com Imaging Radiologist's Impressions: Impressions Head CT 05/14/21 16:17 IMPRESSION: No substantial change in the metastatic lesions in brain or the surrounding vasogenic edema since the prior MRI of the head April 04, 2021. Chest X-Ray 05/14/21 18:29 IMPRESSION: Mildly increasing elevation right hemidiaphragm compared to most recent previous. Otherwise there is been no significant change here. Right-sided lesions are noted. No convincing evidence for new process in the lungs Assessment and Plan (1) New onset seizure: 80-year-old male with a past medical history of hypertension, diabetes, GERD, history of DVT on Coumadin, history of metastatic colon cancer with Mets to brain-had radiotherapy presented to the hospital with a chief complaint of seizure. Seizure: CT head does show brain Mets similar to prior MRI in March; no significant change on the CT head compared to the MRI in March of 2021. Reportedly patient is not on seizure prophylaxis at home per the patient's daughter. Will keep the patient on Keppra 1000 mg b.i.d. NPO for now Gentle IV fluids Neurology consult Fall, Aspiration and seizure precautions Fever: Currently unknown source. Will start the patient on Zosyn. Id consult. Per family patient just finished antibiotic course for UTI. Urinalysis negative Chest x-ray showed no new findings. But patient's daughter reported that patient probably had a choking episode post seizure episode. Lactic acidosis: Gentle IV fluids. Mild transaminitis: Monitor liver enzymes. Patient has history of liver lesion. Diabetes: Insulin sliding scale History of colon cancer with metastasis: Will consult Oncology. History of DVT: Patient on Coumadin. INR is 2.2. Will continue for now. Will defer to the Oncology for further inputs. Peripheral edema: Likely the setting of DVT. Leg elevation. DVT prophylaxis: Patient on Coumadin Code status: Full code. Spoke to the patient's family. Goals of care discussion: Family wanted to continue the current treatment with IV antibiotics and seizure medications. Family mentioned that they understand that neurosurgery Neuro Radiology is not available at [facility] and agreed to have the patient get admitted here. Family wanted to speak to the patient's oncologist, case management and also considering hospice at home eventually. Family denied any invasive procedures currently. Quality Stroke Does the patient have a stroke diagnosis?: No VTE Prior VTE?: Yes VTE Risk Level:: Medical - moderate - high VTE Device Contraindication: Treatment Not Indicated VTE Drug Contraindication: Treatment Not Indicated
[2021-05-14] MEDS: dexAMETHasone sod phosphate 4 MG/ML VIAL IVPUSH (23:00)
[2021-05-14] MEDS: Dextrose 5 % and 0.45 % NaCl 1,000 ML 50 ML IVCONT (23:15)
--- NOTE | 2021-05-14 23:20 | PC.NURSE ---
first call to [facility] [place] give [place]. michael orosco unavilable.
--- NOTE | 2021-05-14 23:23 | PC.NURSE ---
confrimed with overnight nursins supervisor filling and packing- pt's family okay to spend night.
--- NOTE | 2021-05-14 23:30 | PC.NURSE ---
attempted to give report to floor. rn unavailable. will attempt again in 10 minutes.
[2021-05-15] VITALS (7 sets, daily range): BP systolic 101–142; BP diastolic 59–94; PULSE 65–85; RESP 9–19; TEMP 36.2–37; O2SAT 96–98; BMI 35.8
[2021-05-15] MEDS: 0.9 % Sodium Chloride Flush 3 ML SYRINGE IVFLUSH ×4 (00:33→21:01)
[2021-05-15] MEDS: Piperacillin Sodium/Tazobactam 3.375 GM in 0.9 % Sodium Chloride 50 ML IV ×4 (00:33→17:07)
[2021-05-15] MEDS: levETIRAcetam in NaCl (iso-os) 1,000 MG/100 ML PIGGYBACK 400 MG IV ×2 (03:36→16:36)
[2021-05-15] MEDS: dexAMETHasone sod phosphate 4 MG/ML VIAL IVPUSH ×4 (05:52→22:03)
[2021-05-15 06:11] LABS: MANUAL DIFF FLAG NO
[2021-05-15 06:26] LABS: Basophils Percent Auto 0.2 % (0-2); Hematocrit 27.6 % (42-52); Hemoglobin 9.3 g/dl (14.0-18.0); Imm Gran Abs Auto 0.06 X10*3/uL (0.00-0.03); Imm Gran Pct Auto 1.3 % (0.0-0.4); Lymphocytes Absolute Auto 0.8 X10*3/uL (1.2-4.9); Mean Corpuscular HGB Conc 33.7 g/dl (31.0-36.0); Mean Corpuscular Hemoglobin 31.5 pg (27.0-33.0); Mean Corpuscular Volume 93.6 fL (80-98); Mean Platelet Volume 9.5 fL (9.4-12.4); Monocytes Absolute Auto 0.2 X10*3/uL (0.1-1.2); Monocytes Percent Auto 3.8 % (2-11); Neutrophils Absolute Auto 3.7 X10*3/uL (2.0-8.3); Neutrophils Percent Auto 78.7 % (45-73); Red Blood Count 2.95 X10*6/uL (4.60-5.80); Red Cell Distribution Width 15.1 % (11.0-16.0); White Blood Count 4.7 X10*3/uL (4.8-10.8)
[2021-05-15 06:27] LABS: Platelet Count 98 X10*3/uL (160-400)
[2021-05-15 06:45] LABS: INTERNATIONAL NORM RATIO 1.9 (0.9-1.1)
[2021-05-15 06:47] LABS: Anion Gap 12 (12-20); Blood Urea Nitrogen 13 mg/dL (9-16); Calcium 8.1 mg/dL (8.4-10.2); Carbon Dioxide 21 mmol/L (22-29); Chloride 103 mmol/L (96-108); Creatinine Clr Calc Pharmacy 85.5; Estimated Glomerular Filt Rate > 60; Glucose Random 239 mg/dL (60-115); Potassium 4.9 mmol/L (3.3-5.1); Sodium 131 mmol/L (135-145)
--- NOTE | 2021-05-15 09:02 | MHC.CM.PN ---
Patient's door was closed and Patient is described in H&P as drowsy and lethargic;CM spoke with Daughter/HCP/Binta @ [phone] and addressed IMM with her (original will be mailed certified letter to Binta and a copy placed on the chart).Patient lives in a house with his and Granddaughter and he uses a cane and walker to assist with mobility. Home with a new referral to [facility] is the goal and CM has initiated will follow for dc planning. PCP is Dr. Juan Henning.
[2021-05-15] MEDS: Famotidine/PF 20 MG/2 ML VIAL IVPUSH ×2 (09:21→21:00)
--- NOTE | 2021-05-15 10:56 | MHC.SL.SWA ---
Speech Pathologist Impression: Risk of Aspiration Risk of Aspiration Due to: Neurological Condition Dysphasia Diet Status: Upgrade Liquid Consistency and Strategies for Safe Swallow: Liquid Intake Recommendation: Thin Liquid Intake Strategies: Small Sips Solid Food Consistency: Dietary Recommendations: Regular Additional Modifications to Solid Foods: Recommend pills whole or crushed in puree. Aspiration precautions apply. Recommend assistance when needed or at the least supervision to ensure aspiration precautions. Oral Medication Intake: Whole with Puree Compensatory Strategies and Precautions to be Taken for Safe Swallow: Sitting Upright (90 deg) Small Bites and Sips Alternate Liquids/Solids Rate of Ingestion Change Supervision While Eating and Drinking for Safe Swallow: Total Supervision (1:1) Swallowing Recommended Treatments: Compens. Strategy Educat. Recommendation for Speech: NA:Typical Evaluation Comment: FAMILY PRACTICE PHYSICIAN ASSISTANT will check in with RN tomorrow morning to ensure patient tolerated unmodified diet. Database Operator Clinican/Clinical Fellow: No Supervisory Statement: I have reviewed and agree with the student/clinical fellow's documentation: N/A Speech Language Pathologist: Mona Polanco M.A., CCC-FAMILY PRACTICE PHYSICIAN ASSISTANT
--- NOTE | 2021-05-15 11:33 | MHC.CM.PN ---
Per ROUNDS discussion, Daughter/HCP/Binta is requesting a Hospice Informational; a referral has been made to [facility] to arrange for this meeting. CM will continue to follow.
[2021-05-15 12:12] LABS: Glucose, Whole Blood 209 mg/dL (60-115)
--- NOTE | 2021-05-15 14:05 | HO.PM.IMPN ---
Subjective Subjective Date of Service: 05/16/21 Interval History: Seen and examined this morning Follow-up for seizure, fever Awake, alert appears to be in no acute distress No specific complaints at this time Review of Systems Review of Systems: Yes all other systems are reviewed and are negative Constitutional Constitutional: Denies chills and Denies fever(s) Cardiovascular Cardiovascular: Denies chest pain Respiratory Respiratory: Denies cough Gastrointestinal Gastrointestinal: Denies abdominal pain Physical Exam Vital Signs: Vital Signs: Last Vital Signs Temp 97.1 F 05/15/21 11:40 Pulse 66 05/15/21 11:40 Resp 18 05/15/21 11:40 BP 101/64 05/15/21 11:40 Pulse Ox 97 05/15/21 11:40 Body Mass Index 35.8 Const: General: comfortable, alert and awake Nutritional Appearance: well nourished HENMT: Head: Yes normocephalic and Yes atraumatic Eyes: Sclerae: sclerae normal Chest: Chest palpation & inspection: normal inspection of the chest Resp: Effort & Inspection: normal respiratory effort and no respiratory distress Cardio: Rate: regular rate Rhythm: regular rhythm GI: Palpation (GI): Soft to palpation and nontender Neuro: Cranial nerves: Yes CN's II-XII intact bilaterally and Yes Bilaterally intact EOM present Extrem: Other: b/l leg edema Objective Data Current Medications Generic Name Dose Route Start Last Admin Trade Name Freq PRN Reason Stop Dose Admin Acetaminophen 650 mg 05/14/21 22:23 Acetaminophen Supp 650 Mg Supp.Rect [place] Q6H PRN Pain, Mild (Pain Scale 1-3) Dexamethasone Sodium Phosphate 4 mg 05/14/21 23:00 05/15/21 09:22 Dexamethasone Sod Phosphate 4 Mg/Ml Vial IVPUSH 4 mg Q6H AC Administration Dextrose 25 gm 05/15/21 11:57 Dextrose 50 % 25 Gm/50 Ml Vial IVPUSH Q15M PRN per Hypoglycemia Standing Ord. Protocol Famotidine 20 mg 05/15/21 09:00 05/15/21 09:21 Famotidine/Pf 20 Mg/2 Ml Vial IVPUSH 20 mg BID AC Administration Glucose 15 gm 05/15/21 11:57 Glucose Gel 15 Gm Gel..Gram. PO Q15M PRN per Hypoglycemia Standing Ord. Protocol Levetiracetam 1,000 mg in 100 mls @ 400 mls/hr 05/15/21 04:00 05/15/21 04:09 Keppra IV Infused Q12H [facility] Infusion Dextrose/Sodium Chloride 1,000 mls @ 50 mls/hr 05/14/21 22:30 05/14/21 23:15 D51/2ns IVCONT 50 mls/hr .Q20H [facility] Administration Piperacillin Sod/Tazobactam 50 mls @ 100 mls/hr 05/15/21 00:00 05/15/21 12:22 Sod 3.375 gm/ Sodium Chloride IV Infused Q6H [facility] Infusion Insulin Human Lispro 0 unit 05/15/21 16:30 Insulin Lispro 100 Unit/Ml 3 Ml Vial SUBCUT QIDACHS [facility] Protocol Multivitamins/Minerals 1 tab 05/15/21 09:00 05/15/21 09:29 Multivitamin With Minerals Tablet PO Not Given DAILY [facility] Pharmacy Consult 1 each 05/14/21 16:46 Consult Rx Perform Med Rec MISCELLANE ONCE PRN Consult order Senna/Docusate Sodium 1 tab 05/14/21 22:27 Sennosides/Docusate Sodium Tablet PO DAILY PRN Constipation Sodium Chloride 3 ml 05/15/21 00:00 05/15/21 11:32 0.9 % Sodium Chloride Flush 3 Ml Syringe IVFLUSH 3 ml QSHIFT [facility] Administration Warfarin Sodium 5 mg 05/15/21 18:00 Warfarin Sodium 5 Mg Tablet PO SUTUTHSA@1800 [facility] Warfarin Sodium 7.5 mg 05/16/21 18:00 Warfarin Sodium 7.5 Mg Tablet PO MOWEFR@1800 [facility] Labs CBC & Chem 7: 05/15/21 05:44 05/15/21 05:44 Labs: Laboratory Results - last 24 hr 05/14/21 05/14/21 05/14/21 16:17 16:52 16:52 MCV 93.5 MCH 31.5 MCHC 33.7 RDW 15.0 Plt Count 125 L D MPV 9.2 L Immature Gran % (Auto) 2.6 H Neut % (Auto) 52.3 Lymph % (Auto) 25.1 [place] % (Auto) 19.0 H Eos % (Auto) 0.8 Baso % (Auto) 0.2 Lymph # (Auto) 1.3 [place] # (Auto) 1.0 Eos # (Auto) 0.0 Baso # (Auto) 0.0 Abs Immat Gran (auto) 0.13 H Absolute Neuts (auto) 2.6 Absolute Nucleated RBC 0.030 H Nucleated RBC % (auto) 0.6 H PT INR APTT Anion Gap 16 Estim Creat Clear Calc 81.6 Estimated GFR > 60 POC Glucose 155 H Random Glucose 157 H D Lactic Acid Lactic Acid Fup @ 2Hr Calcium 8.4 D Magnesium 1.7 Total Bilirubin 0.7 Direct Bilirubin 0.3 AST 77 H ALT 102 H Alkaline Phosphatase 218 H D Total Protein 6.6 Albumin 3.0 L Urine Color Urine Appearance Urine pH Ur Specific [place] Urine Protein Urine Glucose (UA) Urine Ketones Urine Blood Urine Nitrite Ur Leukocyte Esterase Urine RBC Urine WBC Ur Squamous Epith Cells Urine Bacteria Urine Sperm COVID-19 (DILSHAD) [employer] 05/14/21 05/14/21 05/14/21 16:52 16:52 17:05 MCV MCH MCHC RDW Plt Count MPV Immature Gran % (Auto) Neut % (Auto) Lymph % (Auto) [place] % (Auto) Eos % (Auto) Baso % (Auto) Lymph # (Auto) [place] # (Auto) Eos # (Auto) Baso # (Auto) Abs Immat Gran (auto) Absolute Neuts (auto) Absolute Nucleated RBC Nucleated RBC % (auto) PT 24.9 H D INR 2.2 H APTT 34.0 D Anion Gap Estim Creat Clear Calc Estimated GFR POC Glucose Random Glucose Lactic Acid 3.4 H* Lactic Acid Fup @ 2Hr Calcium Magnesium Total Bilirubin Direct Bilirubin AST ALT Alkaline Phosphatase Total Protein Albumin Urine Color Urine Appearance Urine pH Ur Specific [place] Urine Protein Urine Glucose (UA) Urine Ketones Urine Blood Urine Nitrite Ur Leukocyte Esterase Urine RBC Urine WBC Ur Squamous Epith Cells Urine Bacteria Urine Sperm COVID-19 (DILSHAD) Negative [employer] See Note 05/14/21 05/14/21 05/15/21 17:08 19:30 05:44 MCV 93.6 MCH 31.5 MCHC 33.7 RDW 15.1 Plt Count 98 L MPV 9.5 Immature Gran % (Auto) 1.3 H Neut % (Auto) 78.7 H Lymph % (Auto) 16.0 L [place] % (Auto) 3.8 Eos % (Auto) 0.0 Baso % (Auto) 0.2 Lymph # (Auto) 0.8 L [place] # (Auto) 0.2 Eos # (Auto) 0.0 Baso # (Auto) 0.0 Abs Immat Gran (auto) 0.06 H Absolute Neuts (auto) 3.7 Absolute Nucleated RBC 0.000 Nucleated RBC % (auto) 0.0 PT INR APTT Anion Gap Estim Creat Clear Calc Estimated GFR POC Glucose Random Glucose Lactic Acid Lactic Acid Fup @ 2Hr 1.4 Calcium Magnesium Total Bilirubin Direct Bilirubin AST ALT Alkaline Phosphatase Total Protein Albumin Urine Color YELLOW Urine Appearance CLEAR Urine pH 6.0 Ur Specific [place] 1.020 Urine Protein 2+ H Urine Glucose (UA) NEG Urine Ketones NEG Urine Blood TRACE Urine Nitrite NEG Ur Leukocyte Esterase NEG Urine RBC 0-2 Urine WBC 0 Ur Squamous Epith Cells 1+ Urine Bacteria 1+ Urine Sperm NOTED COVID-19 (DILSHAD) COVID-19 TRAFI 05/15/21 05/15/21 05/15/21 05:44 05:44 12:09 MCV MCH MCHC RDW Plt Count MPV Immature Gran % (Auto) Neut % (Auto) Lymph % (Auto) [place] % (Auto) Eos % (Auto) Baso % (Auto) Lymph # (Auto) [place] # (Auto) Eos # (Auto) Baso # (Auto) Abs Immat Gran (auto) Absolute Neuts (auto) Absolute Nucleated RBC Nucleated RBC % (auto) PT 22.0 H INR 1.9 H APTT Anion Gap 12 Estim Creat Clear Calc 85.5 Estimated GFR > 60 POC Glucose 209 H Random Glucose 239 H D Lactic Acid Lactic Acid Fup @ 2Hr Calcium 8.1 L Magnesium Total Bilirubin Direct Bilirubin AST ALT Alkaline Phosphatase Total Protein Albumin Urine Color Urine Appearance Urine pH Ur Specific [place] Urine Protein Urine Glucose (UA) Urine Ketones Urine Blood Urine Nitrite Ur Leukocyte Esterase Urine RBC Urine WBC Ur Squamous Epith Cells Urine Bacteria Urine Sperm COVID-19 (DILSHAD) COVID-19 Clin Com Assessment and Plan (1) New onset seizure: Status: Acute Assessment and Plan: This is a 80-year-old male with a past medical history of hypertension, diabetes, GERD, history of DVT on Coumadin, 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 sepsis. present on arrival met criteria with fever, tachycardia and tachypnea possible underlying aspiration pneumonia sepsis focused exam completed. follow blood cultures Seizure:? CT head shows brain Mets similar to prior MRI in March; no significant change continue Keppra Seizure precautions Fever:? Possible aspiration reported choking episode post seizure -continue Zosyn for now Lactic acidosis:? Resolved. Gentle IV fluids. Mild transaminitis:? r/t liver mets Diabetes:? ADA diet Insulin sliding scale -hold glipizide Hypertension BP soft -Lisinopril/hydrochlorothiazide on hold History of colon cancer with metastasis:? seen by hospice, plan to transition to home hospice Pancytopenia chronic. History of DVT:? Patient on Coumadin.? INR is 1.9? -continue coumadin? Peripheral edema:? chronic - Leg elevation. DVT prophylaxis:? Coumadin Code status:? DNR/DNI - discussed with pt and family. MOLST form filled out Disposition-home with hospice, likely tomorrow Quality Stroke Does the patient have a stroke diagnosis?: No VTE Prior VTE?: Yes VTE Risk Level:: Medical - moderate - high VTE Device Contraindication: Treatment Not Indicated VTE Drug Contraindication: Treatment Not Indicated
[2021-05-15 16:17] LABS: Glucose, Whole Blood 246 mg/dL (60-115)
[2021-05-15] MEDS: Insulin Lispro 100 UNIT/ML 3 ML VIAL SUBCUT ×2 (16:36→21:00)
[2021-05-15] MEDS: Warfarin Sodium 5 MG TABLET PO (17:07)
[2021-05-15 20:35] LABS: Glucose, Whole Blood 221 mg/dL (60-115)
[2021-05-15] MEDS: Acetaminophen 325 MG TABLET 650 MG PO (22:02)
--- NOTE | 2021-05-15 22:30 | PC.NURSE ---
Addendum entered by Allison Martinez RN 05/16/21 05:19: Pt has not voided, does not have urge to void at this time. Bladder scanned at 0430 showed 191ml. aware, continue to monitor at this time. Original Note: Atkins pulled out at 2200, pt due to void by 0400 tomorrow AM.
[2021-05-16] MEDS: Piperacillin Sodium/Tazobactam 3.375 GM in 0.9 % Sodium Chloride 50 ML IV ×2 (00:25→05:00)
[2021-05-16 03:19] VITALS: BP 132/76; PULSE 65; RESP 18; TEMP 36.7; O2SAT 97
[2021-05-16] MEDS: dexAMETHasone sod phosphate 4 MG/ML VIAL IVPUSH (04:43)
[2021-05-16] MEDS: levETIRAcetam in NaCl (iso-os) 1,000 MG/100 ML PIGGYBACK 400 MG IV (04:43)
[2021-05-16 07:20] VITALS: BP 143/70; PULSE 61; RESP 19; TEMP 36.1; O2SAT 99
[2021-05-16 07:48] LABS: Glucose, Whole Blood 174 mg/dL (60-115)
--- NOTE | 2021-05-16 08:13 | MHC.CM.PN ---
Patient will be medically cleared for dc to home today with [facility] services. MD, RN, Patient/Daughter/Binta are all aware of the dc plan. Binta is in agreement with the dc plan and wishes to transport her Father back home.Last IMM addressed yesterday
[2021-05-16] MEDS: Insulin Lispro 100 UNIT/ML 3 ML VIAL SUBCUT (08:41)
[2021-05-16] MEDS: 0.9 % Sodium Chloride Flush 3 ML SYRINGE IVFLUSH (08:43)
--- NOTE | 2021-05-16 08:50 | P.DS_ITS ---
DS: Providers Provider Date of Service: 05/16/21 Date of admission: 05/14/21 22:23 Primary care physician: Funmilayo White MD Consults: 05/14/21 22:23 Consult to Hematology / Oncology Routine Consulting Provider: Alexus Marcelo Reason for consultation: Colon ca with madison dwyer; p/w seizure DS: Diagnosis Discharge Diagnosis (1) New onset seizure: Status: Acute (2) Metastatic cancer to brain: Status: Acute (3) Fever: Status: Acute DS: Medications Discharge Medications Home Medications: Home Medications Medication Instructions Recorded Confirmed glipizide 5 mg tablet 5 mg PO DAILY@0730 05/08/21 05/14/21 lisinopril 20 1 tab PO DAILY 05/08/21 05/14/21 mg-hydrochlorothiazide 25 mg tablet omeprazole 20 mg capsule,delayed 20 mg PO DAILY 05/08/21 05/14/21 release multivit,Ca,min-iron 8 mg-folic 1 tab PO DAILY 05/14/21 05/14/21 acid 200 mcg-lycopene 600 mcg tablet (Centrum Men) sennosides 8.6 mg-docusate sodium 1 tab PO DAILY PRN 05/14/21 05/14/21 50 mg tablet (Senna Plus) warfarin 5 mg tablet 5 mg PO SUTUTHSA@1800 05/14/21 05/14/21 warfarin 7.5 mg tablet 7.5 mg PO MOWEFR@1800 05/14/21 05/14/21 Previous Rx's Medication Instructions Recorded levetiracetam 1,000 mg tablet 1,000 mg PO BID #60 tab 05/16/21 (Keppra) morphine concentrate 100 mg/5 mL 5 mg PO Q6H PRN #30 ml 05/16/21 (20 mg/mL) oral solution DS: Summary Hospital Course Hospital Course: From the admission H&P: 80-year-old male with a past medical history of hypertension, diabetes, GERD, colon cancer with metastasis to the brain-had radiotherapy on 04/21; presented to the hospital today with a chief complaint of seizure. Most of the history obtained from the patient's family/healthcare proxy. Reportedly patient was going for his appointment today and in the car he noted to have left lower extremity shaking uncontrollably; post episode patient was drowsy lethargic and probably had like choking episode; subsequently family brought him to the hospital for further evaluation given concerns for seizure episode.? Denied patient having any froth in the mouth, tongue bite, urine incontinence. Patient is drowsy and lethargic, further history is limited from the patient. Review of systems limited as the patient is drowsy. ER course:? Per ER team patient CT head showed no new findings were noted findings similar to the MRI in March of 2021; patient has known brain metastasis, had radiotherapy. Given a dose of Of Keppra.? Admitted to the hospital for further management Patient CT scan also showed edema around the metastasis-received dexamethasone. Hospital Couse Patient was started on IV keppra and IV decadron. A discussion was held with the patient, patient's family including health care proxies. Ultimately, they decided upon transition to hospice as patients wishes were to be at home. He will be discharged home under hospice care. His keppra will be continued to prevent seizures. Time Spent with Patient Time attestation: Total time spent providing and/or coordinating discharge services: Discharge coordination time: Greater than 30 minutes Quality: Stroke Does the patient have a stroke diagnosis?: No Physical Exam 2 Vital Signs: Vital Signs: Last Vital Signs Temp 97 F 05/16/21 07:20 Pulse 61 05/16/21 07:20 Resp 19 05/16/21 07:20 BP 143/70 H 05/16/21 07:20 Pulse Ox 99 05/16/21 07:20 Body Mass Index 35.8 Const: Other: General - no acute distress, appears comfortable Cardiovascular - regular rate and rhythm, S1-S2 Lungs - normal respiratory effort, clear to auscultation bilaterally, no wheezing Abdomen - soft, nontender, no rebound or guarding Extremities - no edema bilaterally Neuro - awake and alert, DS: Data Data Completed and Pending Labs on day of discharge: Laboratory Results - last 24 hr 05/15/21 05/15/21 05/15/21 12:09 15:58 20:16 POC Glucose 209 H 246 H 221 H 05/16/21 07:39 POC Glucose 174 H Preliminary micro results at discharge 05/14/21 16:52 Blood Culture - Preliminary Blood - Venous No growth after 24 hours. 05/14/21 16:52 Blood Culture - Preliminary Blood - Venous No growth after 24 hours. Discharge Plan Discharge Patient Disposition: Hospice - Home Discharge Diagnosis: New onset Seizures Hospice Care Referrals: Annamarie NGUYEN [Outside] - 1 Week Funmilayo Linton MD [Primary Care Provider] - 1 Week Discharge Medications: New levetiracetam [Keppra] 1,000 mg tablet 1,000 mg PO BID Qty: 60 RF: 0 morphine concentrate 100 mg/5 mL (20 mg/mL) solution 5 mg PO Q6H PRN (Reason: Pain (Scale Score 7-10)) Qty: 30 RF: 0 Continued omeprazole 20 mg capsule,delayed release(DR/EC) 20 mg PO DAILY RF: 0 lisinopril-hydrochlorothiazide 20-25 mg tablet 1 tab PO DAILY RF: 0 Hold Instructions: Resume after follow up with PCP glipizide 5 mg tablet 5 mg PO DAILY@0730 RF: 0 Centrum Men 8 mg iron- 200 mcg-600 mcg Tablet 1 tab PO DAILY RF: 0 sennosides-docusate sodium [Senna Plus] 8.6-50 mg Tablet 1 tab PO DAILY PRN (Reason: Constipation) RF: 0 warfarin 5 mg Tablet 5 mg PO SUTUTHSA@1800 RF: 0 warfarin 7.5 mg Tablet 7.5 mg PO MOWEFR@1800 RF: 0 Discharge Orders: Discharge Order (Routine); Ordered 05/16/21 Ordered By: Marcelino Ray Diet: advance to usual diet Activity on Discharge: As tolerated Stand Alone Forms: Patient Portal Discharge page Care Plan Goals: Hospice Care Health Concerns: Metastatic lung cancer Plan of Treatment: Hospice care at home. Assessment: 80 yo M admitted for new onset seizure due to brain mets from colon Ca. Treated with keppra and family elected for hospice transition.
[2021-05-16 09:16] LABS: INTERNATIONAL NORM RATIO 2.1 (0.9-1.1); Prothrombin Time 24.2 SEC (9.9-13.0)
[2021-05-16] MEDS: Famotidine/PF 20 MG/2 ML VIAL IVPUSH (09:21)
--- NOTE | 2021-05-16 11:57 | PC.NURSE ---
daughter has dressed pt, states she will take home home via private car. Pt has been ambulatory to wheelchair and transported to exit. he denies pain. Gait was slow but steady with ambulation.
== END 2021-05-16 11:59 | disposition hospice, home (50) | DRG 872 ==
LOC: HO.ED 21:33 → HO.EDOVER 22:36 → HO.IMC 23:17
PROVIDERS: Admitting Provider Hospitalist; Emergency Provider Internal Medicine; PCP Internal Medicine; Visit Provider Family Medicine
DX: A41.9 Sepsis, unspecified organism (principal); C79.31 Secondary malignant neoplasm of brain; E87.2 Acidosis; K21.9 Gastro-esophageal reflux disease without esophagitis; I10 Essential (primary) hypertension; R56.9 Unspecified convulsions; E11.9 Type 2 diabetes mellitus without complications; Z86.718 Personal history of other venous thrombosis and embolism; Z20.822 Contact with and (suspected) exposure to COVID-19; Z79.01 Long term (current) use of anticoagulants; Z79.899 Other long term (current) drug therapy; Z66 Do not resuscitate; Z51.5 Encounter for palliative care
CPT/HCPCS: 36415; 70450; 71045; 80048; 80076; 81001; 82947; 83605; 83735; 85025; 85610; 85730; 87040; 87635; 92610; 99285; J1100; J1953; J2060; J2543

== ENCOUNTER → 2024-05-30 10:07 | Outpatient (RCR) | payer MEDICARE, SELFPAY ==
[2020-06-27 09:36] VITALS: BP 170/82; PULSE 67; RESP 18; TEMP 36.3; O2SAT 100; BMI 33.5
[2020-06-27 10:04] LABS: MANUAL DIFF FLAG NO
[2020-06-27 10:05] LABS: Basophils Percent Auto 0.8 % (0-2); Eosinophils Absolute Auto 0.2 X10*3/uL (0.0-0.4); Eosinophils Percent Auto 3.8 % (0-4); Hematocrit 40.4 % (42-52); Hemoglobin 13.1 g/dl (14.0-18.0); Lymphocytes Absolute Auto 1.6 X10*3/uL (1.2-4.9); Lymphocytes Percent Auto 41.1 % (20-40); Mean Corpuscular HGB Conc 32.4 g/dl (31.0-36.0); Mean Corpuscular Hemoglobin 29.2 pg (27.0-33.0); Mean Corpuscular Volume 90.2 fL (80-98); Mean Platelet Volume 9.8 fL (9.4-12.4); Monocytes Absolute Auto 0.7 X10*3/uL (0.1-1.2); Monocytes Percent Auto 16.4 % (2-11); Neutrophils Absolute Auto 1.5 X10*3/uL (2.0-8.3); Neutrophils Percent Auto 37.9 % (45-73); Platelet Count 143 X10*3/uL (160-400); Red Blood Count 4.48 X10*6/uL (4.60-5.80); Red Cell Distribution Width 15.1 % (11.0-16.0)
[2020-06-27 10:52] LABS: Alanine Aminotransferase 23 U/L (0-40); Albumin Level 3.9 g/dL (3.5-5.0); Alkaline Phosphatase 86 U/L (39-117); Anion Gap 11 (12-20); Aspartate Amino Transferase 25 U/L (5-37); Bilirubin Total 0.4 mg/dL (0.0-1.0); Blood Urea Nitrogen 14 mg/dL (9-16); Calcium 8.4 mg/dL (8.4-10.2); Carbon Dioxide 26 mmol/L (22-29); Chloride 102 mmol/L (96-108); Creatinine Clr Calc Pharmacy 71.4; Estimated Glomerular Filt Rate > 60; Glucose Random 103 mg/dL (60-115); Potassium 3.9 mmol/l (3.3-5.1); Sodium 135 mmol/L (135-145); Total Protein 8.1 g/dL (6.5-8.0)
--- NOTE | 2020-06-27 15:57 | P.PNHO_ITS ---
Medical Summary - Medical Summary Chief complaint: Follow-up for colon cancer with liver and lung metastases. Medical Summary: DIAGNOSIS: Colon Carcinoma, with Liver mets. CURRENT THERAPY: He underwent a right hemicolectomy on January 26. Started out with a laparoscopic procedure but then had to be opened. Pathology revealed: INVASIVE MODERATELY TO POORLY DIFFERENTIATED ADENOCARCINOMA. TUMOR SITE: CECUM. TUMOR SIZE: 4 X 3 CM. TUMOR PERFORATION: NOT IDENTIFIED. MICROSCOPIC TUMOR EXTENSION: THE TUMOR INVADES THROUGH THE MUSCULARIS PROPRIA AND INTO THE PERICOLIC ADIPOSE TISSUES. MARGINS: THE TUMOR IS 0.3 CM. FROM THE CLOSEST CIRCUMFERENTIAL MARGIN. THE TUMOR IS APPROXIMATELY 11.5 CM. FROM THE PROXIMAL MARGIN AND 12 CM. FROM THE DISTAL RESECTION MARGIN. LYMPH-VASCULAR INVASION: POSSIBLE LYMPHOVASCULAR INVASION IDENTIFIED. PERINEURAL INVASION: IDENTIFIED. TUMOR DEPOSITS: IDENTIFIED. REGIONAL LYMPH NODES: NUMBER EXAMINED: 29. NUMBER POSITIVE: 8. THE LARGEST METASTATIC FOCUS MEASURES 1.2 CM. IN GREATEST DIMENSION WITH NEAR COMPLETE LYMPH NODE REPLACEMENT AND EXTRACAPSULAR EXTENSION. ADDITIONAL FINDINGS: OMENTUM COMPOSED OF UNREMARKABLE ADIPOSE TISSUE. APPENDIX WITH DISTAL LUMINAL OBLITERATION. PATHOLOGIC STAGE: pT3 pN2b pMX. LIVER BIOPSY FROM 02/17: BLOOD AND BENIGN HEPATOCYTES. NO MALIGNANT CELLS SEEN. CURRENT THERAPY: 1. He underwent a right hemicolectomy on January 26. Started out with a laparoscopic procedure but then had to be opened. 2. FOLFOX & Avastin Chemotherapy, S/P 6 cycles, completed 09/15/17. 3. S/P Radiofrequency Ablation, 05/[address] Vázquez. 4. S/P Y-90 Microspheres, administration , by Dr. Vázquez. 5. Planned another Y 90 radio-embolization treatment on August 29. Underwent mapping on August 08. 6. Started on SBRT on the left upper lobe pulmonary nodule, yesterday, has a does scheduled for tomorrow in 3 next week. Interval History Interval history: This is a pleasant 79-year-old gentleman here for a follow-up visit. He has been doing extremely well. He received the 1st of the series of SBRT yesterday. The hardest thing was to lie down with arms above the head for 45 minutes. He tolerated it well otherwise. He denies any complaints. He denies any fever nor chills. He has good energy level. He denies headache no dizziness. No chest pain or trouble breathing. He denies abdominal pain nausea vomiting heartburn indigestion. Bowels are working without any gross blood in it. Enjoys a good appetite. He has gained weight. He is in good spirits. Rest of the review of systems is unremarkable. Review of Systems - Constitutional Reports system reviewed and no additional complaints, except as documented - Eyes Reports system reviewed and no additional complaints, except as documented - ENT Reports system reviewed and no additional complaints, except as documented - Cardiovascular Reports system reviewed and no additional complaints, except as documented - Respiratory Reports no additional respiratory complaints - Gastrointestinal Reports system reviewed and no additional complaints, except as documented - Genitourinary Genitourinary: Reports no additional male genitourinary complaints - Musculoskeletal Reports system reviewed and no additional complaints, except as documented - Integumentary/Breasts Skin/Breast: Reports no additional skin complaints - Neurologic Reports system reviewed and no additional complaints, except as documented - Psychiatric Reports system reviewed and no additional complaints, except as documented [facility] Medical History: Medical History (Last Updated 06/27/20 @ 09:35 by Elina Lou RN) Colon cancer Liver lesion Lung nodule Functional capacity: independent ambulation Patient : No Home Medications and Allergies Home Medications Medication Instructions Recorded Confirmed Type glipizide 1 tab PO BID 06/27/20 06/27/20 History lisinopril-hydrochlorothiazide 1 tab PO DAILY 06/27/20 06/27/20 History Allergies Allergy/AdvReac Type Severity Reaction Status Date / Time No Known Allergies Allergy Verified 06/25/20 09:59 [No Known Allergies*] Exam Vital signs: Vital Signs Temp 97.4 F 06/27/20 09:36 Pulse 67 06/27/20 09:36 Resp 18 06/27/20 09:36 BP 170/82 H 06/27/20 09:36 Pulse Ox 100 06/27/20 09:36 Intake & Output 06/26/20 06/27/20 06/27/20 18:59 06:59 18:59 Other: Weight 99.847 kg Weight 99.847 kg Body Mass Index 33.5 - Constitutional Present: no acute distress - Routine HEENT Exam Head: Present: normal inspection ENT: Present: mucous membranes moist - Routine Neck Exam Present: full ROM - Routine Respiratory Exam Present: CTAB - Routine Cardiovascular Exam Cardiovascular: Present: RRR, S1, S2 - Routine Abdominal Exam Present: soft, nontender - Routine Rectal Exam Patient deferred: digital exam - Routine Neurological Exam Present: alert, oriented X3 - Detailed Neurological Exam: Coma Scale Eye Opening: Spontaneous (4) - Routine Psychiatric Exam Present: normal affect Data - Labs CBC & Chem 7: 06/27/20 09:55 06/27/20 09:55 Labs: Laboratory Results - last 24 hr 06/27/20 06/27/20 09:55 09:55 WBC 4.0 L RBC 4.48 L Hgb 13.1 L Hct 40.4 L MCV 90.2 MCH 29.2 MCHC 32.4 RDW 15.1 Plt Count 143 L MPV 9.8 Immature Gran % (Auto) 0.0 Neut % (Auto) 37.9 L Lymph % (Auto) 41.1 H [place] % (Auto) 16.4 H Eos % (Auto) 3.8 Baso % (Auto) 0.8 Lymph # (Auto) 1.6 [place] # (Auto) 0.7 Eos # (Auto) 0.2 Baso # (Auto) 0.0 Abs Immat Gran (auto) 0.00 Absolute Neuts (auto) 1.5 L Absolute Nucleated RBC 0.000 Nucleated RBC % (auto) 0.0 Sodium 135 Potassium 3.9 Chloride 102 Carbon Dioxide 26 Anion Gap 11 L BUN 14 Creatinine 0.96 Estim Creat Clear Calc 71.4 Estimated GFR > 60 Random Glucose 103 Calcium 8.4 Total Bilirubin 0.4 AST 25 ALT 23 Alkaline Phosphatase 86 Total Protein 8.1 H Albumin 3.9 Progress Note: A/P (1) Metastatic colon cancer to liver Status: Acute Assessment and plan: This is a pleasant 79 year-old male with metastatic Colon Cancer, completed 6 cycles of chemotherapy, September 15, 2017. He has been regaining his appetite and strength slowly. His CEA level was up at 14.4. on December 03 2017. He had a Cat Scan of abdomen on 12/15/17 which revealed: Abdomen and pelvis: Question slight interval increase in size in liver lesions. No new liver lesion seen. Fatty liver. Postsurgical changes from right hemicolectomy. Enlarged prostate gland that protrudes into the base of the bladder. Probable mild diffuse bladder wall thickening. Bilateral inguinal hernias containing fat, right greater than left. Bilateral renal cysts. Stable right adrenal nodule. I referred him to Dr. Case Vázquez, for consideration of radiofrequency embolization therapy. The patient actually underwent the radiofrequency ablation procedure May [address] Vázquez. He did well. It appears that the procedure was successful. June 29, 2018 he had an MRI of the abdomen which revealed: There are 2 metastatic lesions identified within the liver, corresponding with the appearance on prior PET/CT. These lesions demonstrate heterogeneous internal signal, without significant enhancement of the lesions themselves. Mild arterial enhancement in the surrounding hepatic parenchyma, which fades. No new hepatic lesions are identified. Multiple bilateral renal cysts. Exophytic right midpole renal lesion may represent a hemorrhagic or proteinaceous cyst. He just had a PET scan done on March 02 which revealed: 1. There has been a complete metabolic response to therapy of FDG avid no other lesions noted on prior studies. 2. There has been a complete metabolic response of an FDG avid right adrenal nodule. 3. A new 0.5 cm solid left apical pulmonary nodule is present. This is suspicious for a metastasis, but is too small to be characterized on the FDG PET images. Better characterization of the lungs fourth an IV contrast enhanced diagnostic chest CT scan is recommended. 4. No additional abnormalities suspicious for other metastatic or malignant lesions are noted. He has had the pretreatment mapping done on. This was followed by Y- 90 therapy on August 29. MRI of the abdomen from October [address] [facility] revealed: Posterior right hepatic Y 90 radioembolization with expected post treatment effe ct and no residual tumor enhancement within the segment 7 lesion. Ablations cavity in segment 4 a has decreased in size, with some central hypoenhancement. No convincing evidence for residual or recurrent disease. He had a PET scan at [facility] on April 22, which revealed: Persistent peripheral metabolic activity involving the segment 7 metastasis of the right hepatic lobe compatible with persistent disease. Increase in size of the left upper lobe lung nodule, now measuring 15 mm in maximum dimension. New mildly FDG avid right lower lobe lung nodule. These are highly concerning for sites of metastatic disease. This was done on May [address] [facility], by IR. Pathology revealed: Adenocarcinoma, metastatic, consistent with colonic primary tumor. Min a chemicals studies revealed: SATB 2: Positive in tumor cells. TTS 1: NEGATIVE. CK 20: Positive in tumor cells. CK7: Negative in tumor cells. since he had declined chemotherapy and again is not interested in receiving that. he was referred for SBRT. he actually started the treatment yesterday. so far so good. PLAN: He will complete the treatment over the course of next week. Initially Dr. Cohen felt he could do some SBRT to the liver lesions however he is deferring it to Dr. Vázquez, in view of the fact that there are pellets in there. He will return here in 4 weeks for a followup visit. He and his daughter will keep me posted, about any symptoms he may developed in the interim. Thank you, CC: Dr. Juan Henning. Dr. Mojgan Tsai. Dr. Jostin Villa. Dr. Vázquez. Dr. Cohen. - Time Spent With Patient Total time spent is greater than 50% in coordination of care (as documented) at patient's floor/unit and/or counseling patient: 25 - 35 minutes
[2020-08-26 10:43] VITALS: BP 160/73; PULSE 76; RESP 20; TEMP 37.1; O2SAT 98; BMI 33.5
[2020-08-26 10:59] LABS: MANUAL DIFF FLAG NO
[2020-08-26] MEDS: Flu Vacc QS2020-21(6mos up)/PF 0.5 ML SYRINGE IM (11:02)
[2020-08-26 11:13] LABS: Basophils Percent Auto 0.6 % (0-2); Eosinophils Absolute Auto 0.2 X10*3/uL (0.0-0.4); Eosinophils Percent Auto 4.8 % (0-4); Hematocrit 39.4 % (42-52); Hemoglobin 12.8 g/dl (14.0-18.0); Imm Gran Abs Auto 0.01 X10*3/uL (0.00-0.03); Imm Gran Pct Auto 0.3 % (0.0-0.4); Lymphocytes Percent Auto 30.4 % (20-40); Mean Corpuscular HGB Conc 32.5 g/dl (31.0-36.0); Mean Corpuscular Hemoglobin 30.2 pg (27.0-33.0); Mean Corpuscular Volume 92.9 fL (80-98); Mean Platelet Volume 9.8 fL (9.4-12.4); Monocytes Absolute Auto 0.5 X10*3/uL (0.1-1.2); Monocytes Percent Auto 14.6 % (2-11); Neutrophils Absolute Auto 1.7 X10*3/uL (2.0-8.3); Neutrophils Percent Auto 49.3 % (45-73); Platelet Count 131 X10*3/uL (160-400); Red Blood Count 4.24 X10*6/uL (4.60-5.80); Red Cell Distribution Width 14.5 % (11.0-16.0); White Blood Count 3.4 X10*3/uL (4.8-10.8)
--- NOTE | 2020-08-26 11:15 | P.PNHO_ITS ---
Medical Summary - Medical Summary Date of Service: 08/26/20 Chief complaint: follow-up for: Colon cancer. Medical Summary: DIAGNOSIS: Colon Carcinoma, with Liver mets. CURRENT THERAPY: He underwent a right hemicolectomy on January 26. Started out with a laparoscopic procedure but then had to be opened. Pathology revealed: INVASIVE MODERATELY TO POORLY DIFFERENTIATED ADENOCARCINOMA. TUMOR SITE: CECUM. TUMOR SIZE: 4 X 3 CM. TUMOR PERFORATION: NOT IDENTIFIED. MICROSCOPIC TUMOR EXTENSION: THE TUMOR INVADES THROUGH THE MUSCULARIS PROPRIA AND INTO THE PERICOLIC ADIPOSE TISSUES. MARGINS: THE TUMOR IS 0.3 CM. FROM THE CLOSEST CIRCUMFERENTIAL MARGIN. THE TUMOR IS APPROXIMATELY 11.5 CM. FROM THE PROXIMAL MARGIN AND 12 CM. FROM THE DISTAL RESECTION MARGIN. LYMPH-VASCULAR INVASION: POSSIBLE LYMPHOVASCULAR INVASION IDENTIFIED. PERINEURAL INVASION: IDENTIFIED. TUMOR DEPOSITS: IDENTIFIED. REGIONAL LYMPH NODES: NUMBER EXAMINED: 29. NUMBER POSITIVE: 8. THE LARGEST METASTATIC FOCUS MEASURES 1.2 CM. IN GREATEST DIMENSION WITH NEAR COMPLETE LYMPH NODE REPLACEMENT AND EXTRACAPSULAR EXTENSION. ADDITIONAL FINDINGS: OMENTUM COMPOSED OF UNREMARKABLE ADIPOSE TISSUE. APPENDIX WITH DISTAL LUMINAL OBLITERATION. PATHOLOGIC STAGE: pT3 pN2b pMX. LIVER BIOPSY FROM 02/17: BLOOD AND BENIGN HEPATOCYTES. NO MALIGNANT CELLS SEEN. CURRENT THERAPY: 1. He underwent a right hemicolectomy on January 26. Started out with a laparoscopic procedure but then had to be opened. 2. FOLFOX & Avastin Chemotherapy, S/P 6 cycles, completed 09/15/17. 3. S/P Radiofrequency Ablation, 05/[address] Vázquez. 4. S/P Y-90 Microspheres, administration , by Dr. Vázquez. 5. Planned another Y 90 radio-embolization treatment on August 29. Underwent mapping on August 08. 6. Completed SBRT on the left upper lobe pulmonary nodule. Interval History Interval history: This is a pleasant 80 year-old gentleman here for a follow-up visit. He has been doing extremely well. He received the SBRT in June. The hardest thing was to lie down with arms above the head for 45 minutes. He tolerated it well otherwise. He denies any complaints. He denies any fever nor chills. He has good energy level. He denies headache no dizziness. No chest pain or trouble breathing. He denies abdominal pain nausea vomiting heartburn indigestion. Bowels are working without any gross blood in it. Enjoys a good appetite. He has gained weight. He is in good spirits. Rest of the review of systems is unremarkable. Review of Systems - Constitutional Reports system reviewed and no additional complaints, except as documented, Reports fatigue, Denies fever(s) - Eyes Reports system reviewed and no additional complaints, except as documented - ENT Reports system reviewed and no additional complaints, except as documented - Cardiovascular Reports system reviewed and no additional complaints, except as documented - Respiratory Reports no additional respiratory complaints - Gastrointestinal Reports system reviewed and no additional complaints, except as documented, Denies loose stools, Denies nausea - Genitourinary Genitourinary: Reports no additional male genitourinary complaints - Musculoskeletal Reports system reviewed and no additional complaints, except as documented - Integumentary/Breasts Skin/Breast: Reports no additional skin complaints - Neurologic Reports system reviewed and no additional complaints, except as documented - Psychiatric Reports system reviewed and no additional complaints, except as documented - Endocrine Reports no additional endocrine complaints - Hematologic/Lymphatic Reports system reviewed and no additional complaints, except as documented - Allergic/Immunologic Reports system reviewed and no additional complaints, except as documented PMF[facility] Medical History: Medical History (Last Updated 07/17/20 @ 08:40 by Juan Henning MD) Anticoagulated on warfarin Chronic GERD Colon cancer Diabetes 1.5, managed as type 2 Difficulty walking Hypertension, essential Liver lesion Lung nodule Functional capacity: independent ambulation Patient : No Family History: Family History (Last Reviewed 07/17/20 @ 08:40 by Juan Henning MD) Father HTN (hypertension) Mother Hyperlipidemia Maternal Grandfather No problems noted. Maternal Grandmother No problems noted. Paternal Grandfather No problems noted. Paternal Grandmother No problems noted. Surgical History: Surgical History (Last Reviewed 07/17/20 @ 08:40 by Juan Henning MD) History of wisdom tooth extraction Home Medications and Allergies Allergies Allergy/AdvReac Type Severity Reaction Status Date / Time No Known Allergies Allergy Verified 08/08/20 08:56 [No Known Allergies*] Exam Vital signs: Vital Signs Temp 98.8 F 08/26/20 10:43 Pulse 76 08/26/20 10:43 Resp 20 08/26/20 10:43 BP 160/73 H 08/26/20 10:43 Pulse Ox 98 08/26/20 10:43 Intake & Output 08/25/20 08/26/20 08/26/20 18:59 06:59 18:59 Other: Weight 99.9 kg Weight 99.9 kg Body Mass Index 33.5 - Constitutional Present: no acute distress - Routine HEENT Exam Head: Present: normal inspection - Routine Neck Exam Present: full ROM - Routine Respiratory Exam Present: CTAB - Routine Cardiovascular Exam Cardiovascular: Present: RRR, S1, S2 - Routine Abdominal Exam Present: soft, nontender - Routine Neurological Exam Present: alert, oriented X3 - Detailed Neurological Exam: Coma Scale Eye Opening: Spontaneous (4) - Routine Psychiatric Exam Present: normal affect Data - Labs CBC & Chem 7: 08/26/20 10:53 08/26/20 10:53 Labs: 06/27/20 09:39 Heparin Sodium,Porcine Flush 500 unit 0.9 % Sodium Chloride Flush [NS Flush] 5 ml IVFLUSH ONCE 06/27/20 09:44 Heparin Sodium,Porcine Flush 500 unit IVFLUSH .STK-MED ONE 06/27/20 09:55 CEA [Carcinoembryonic Antigen] Routine Complete Blood Count Auto Diff Routine Comprehensive Met. Panel Routine 08/08/20 09:04 Heparin Sodium,Porcine Flush 500 unit 0.9 % Sodium Chloride Flush [NS Flush] 5 ml IVFLUSH ONCE 08/26/20 08:10 Heparin Sodium,Porcine Flush 500 unit 0.9 % Sodium Chloride Flush [NS Flush] 5 ml IVFLUSH ONCE 08/26/20 10:40 Heparin Sodium,Porcine Flush 500 unit IVFLUSH .STK-MED ONE 08/26/20 10:46 Flu Vacc [id number](6mos up)/PF [Fluarix Quad [id number]] 0.5 ml IM .ONCE ONE Laboratory Last Values WBC 4.0 X10*3/uL (4.8-10.8) L 06/27/20 09:55 RBC 4.48 X10*6/uL (4.60-5.80) L 06/27/20 09:55 Hgb 13.1 g/dl (14.0-18.0) L 06/27/20 09:55 Hct 40.4 % (42-52) L 06/27/20 09:55 MCV 90.2 fL (80-98) 06/27/20 09:55 MCH 29.2 pg (27.0-33.0) 06/27/20 09:55 MCHC 32.4 g/dl (31.0-36.0) 06/27/20 09:55 RDW 15.1 % (11.0-16.0) 06/27/20 09:55 Plt Count 143 X10*3/uL (160-400) L 06/27/20 09:55 MPV 9.8 fL (9.4-12.4) 06/27/20 09:55 Immature Gran % (Auto) 0.0 % (0.0-0.4) 06/27/20 09:55 Neut % (Auto) 37.9 % (45-73) L 06/27/20 09:55 Lymph % (Auto) 41.1 % (20-40) H 06/27/20 09:55 [place] % (Auto) 16.4 % (2-11) H 06/27/20 09:55 Eos % (Auto) 3.8 % (0-4) 06/27/20 09:55 Baso % (Auto) 0.8 % (0-2) 06/27/20 09:55 Lymph # (Auto) 1.6 X10*3/uL (1.2-4.9) 06/27/20 09:55 [place] # (Auto) 0.7 X10*3/uL (0.1-1.2) 06/27/20 09:55 Eos # (Auto) 0.2 X10*3/uL (0.0-0.4) 06/27/20 09:55 Baso # (Auto) 0.0 X10*3/uL (0.0-0.2) 06/27/20 09:55 Abs Immat Gran (auto) 0.00 X10*3/uL (0.00-0.03) 06/27/20 09:55 Absolute Neuts (auto) 1.5 X10*3/uL (2.0-8.3) L 06/27/20 09:55 Absolute Nucleated RBC 0.000 X10*3/uL (0.0-0.012) 06/27/20 09:55 Nucleated RBC % (auto) 0.0 /100WBC (0.0-0.2) 06/27/20 09:55 Sodium 135 mmol/L (135-145) 06/27/20 09:55 Potassium 3.9 mmol/l (3.3-5.1) 06/27/20 09:55 Chloride 102 mmol/L (96-108) 06/27/20 09:55 Carbon Dioxide 26 mmol/L (22-29) 06/27/20 09:55 Anion Gap 11 (12-20) L 06/27/20 09:55 BUN 14 mg/dL (9-16) 06/27/20 09:55 Creatinine 0.96 mg/dL (0.5-1.4) 06/27/20 09:55 Estim Creat Clear Calc 71.4 06/27/20 09:55 Estimated GFR > 60 06/27/20 09:55 Random Glucose 103 mg/dL (60-115) 06/27/20 09:55 Calcium 8.4 mg/dL (8.4-10.2) 06/27/20 09:55 Total Bilirubin 0.4 mg/dL (0.0-1.0) 06/27/20 09:55 AST 25 U/L (5-37) 06/27/20 09:55 ALT 23 U/L (0-40) 06/27/20 09:55 Alkaline Phosphatase 86 U/L (39-117) 06/27/20 09:55 Total Protein 8.1 g/dL (6.5-8.0) H 06/27/20 09:55 Albumin 3.9 g/dL (3.5-5.0) 06/27/20 09:55 Carcinoembryonic Ag 101.70 mg/mL 06/27/20 09:55 Progress Note: A/P (1) Metastatic colon cancer to liver Status: Acute Assessment and plan: This is a pleasant 79 year-old male with metastatic Colon Cancer, completed 6 cycles of chemotherapy, September 15, 2017. He has been regaining his appetite and strength slowly. His CEA level was up at 14.4. on December 03 2017. He had a Cat Scan of abdomen on 12/15/17 which revealed: Abdomen and pelvis: Question slight interval increase in size in liver lesions. No new liver lesion seen. Fatty liver. Postsurgical changes from right hemic olectomy. Enlarged prostate gland that protrudes into the base of the bladder. Probable mild diffuse bladder wall thickening. Bilateral inguinal hernias containing fat, right greater than left. Bilateral renal cysts. Stable right adrenal nodule. I referred him to Dr. Case Vázquez, for consideration of radiofrequency embolization therapy. The patient actually underwent the radiofrequency ablation procedure May [address] Vázquez. He did well. It appears that the procedure was successful. June 29, 2018 he had an MRI of the abdomen which revealed: There are 2 metastatic lesions identified within the liver, corresponding with the appearance on prior PET/CT. These lesions demonstrate heterogeneous internal signal, without significant enhancement of the lesions themselves. Mild arterial enhancement in the surrounding hepatic parenchyma, which fades. No new hepatic lesions are identified. Multiple bilateral renal cysts. Exophytic right midpole renal lesion may represent a hemorrhagic or proteinaceous cyst. He just had a PET scan done on March 02 which revealed: 1. There has been a complete metabolic response to therapy of FDG avid no other lesions noted on prior studies. 2. There has been a complete metabolic response of an FDG avid right adrenal nodule. 3. A new 0.5 cm solid left apical pulmonary nodule is present. This is suspicious for a metastasis, but is too small to be characterized on the FDG PET images. Better characterization of the lungs fourth an IV contrast enhanced diagnostic chest CT scan is recommended. 4. No additional abnormalities suspicious for other metastatic or malignant lesions are noted. He has had the pretreatment mapping done on. This was followed by Y- 90 therapy on August 29. MRI of the abdomen from October [address] [facility] revealed: Posterior right hepatic Y 90 radioembolization with expected post treatment effect and no residual tumor enhancement within the segment 7 lesion. Ablations cavity in segment 4 a has decreased in size, with some central hypoenhancement. No convincing evidence for residual or recurrent disease. He had a PET scan at [facility] on April 22, which revealed: Persistent peripheral metabolic activity involving the segment 7 metastasis of the right hepatic lobe compatible with persistent disease. Increase in size of the left upper lobe lung nodule, now measuring 15 mm in maximum dimension. New mildly FDG avid right lower lobe lung nodule. These are highly concerning for sites of metastatic disease. This was done on May [address] [facility], by IR. Pathology revealed: Adenocarcinoma, metastatic, consistent with colonic primary tumor. Min a chemicals studies revealed: SATB 2: Positive in tumor cells. TTS 1: NEGATIVE. CK 20: Positive in tumor cells. CK7: Negative in tumor cells. Since he had declined chemotherapy and again is not interested in receiving that. He was referred for SBRT. He actually completed treatment in mid June. PLAN: He will have repeat imaging on 09/29/20. He has a tele visit scheduled with Noel 10/04. Initially Dr. Cohen felt he could do some SBRT to the liver lesions however he is deferring it to Dr. Vázquez, in view of the fact that there are pellets in there. He will follow-up with Dr. Vázquez, mid September. He will return here in 8 weeks for a followup visit. He and his daughter will keep me posted, about any symptoms he may developed in the interim. Thank you, CC: Dr. Juan Henning. Dr. Mojgan Tsai. Dr. Jostin Villa. Dr. Vázquez. Dr. Cohen. PLAN: - Time Spent With Patient Total time spent is greater than 50% in coordination of care (as documented) at patient's floor/unit and/or counseling patient: 25 - 35 minutes
[2020-08-26 11:39] LABS: Alanine Aminotransferase 25 U/L (0-40); Albumin Level 3.7 g/dL (3.5-5.0); Alkaline Phosphatase 75 U/L (39-117); Anion Gap 10 (12-20); Aspartate Amino Transferase 31 U/L (5-37); Bilirubin Total 0.5 mg/dL (0.0-1.0); Blood Urea Nitrogen 15 mg/dL (9-16); Calcium 8.3 mg/dL (8.4-10.2); Carbon Dioxide 28 mmol/L (22-29); Chloride 103 mmol/L (96-108); Creatinine Clr Calc Pharmacy 77.1; Estimated Glomerular Filt Rate > 60; Glucose Random 110 mg/dL (60-115); Potassium 4.1 mmol/l (3.3-5.1); Sodium 137 mmol/L (135-145); Total Protein 7.6 g/dL (6.5-8.0)
--- NOTE | 2020-08-26 11:51 | MHC.HEMONC ---
Exam, Labs drawn off port and port flushed with heparin f/u in 8 weeks for next portflush.
[2020-10-24 11:04] LABS: MANUAL DIFF FLAG NO
[2020-10-24 11:08] VITALS: BP 152/72; PULSE 76; RESP 18; TEMP 36.8; O2SAT 95; BMI 33.8
[2020-10-24 11:19] LABS: Basophils Percent Auto 0.6 % (0-2); Eosinophils Absolute Auto 0.2 X10*3/uL (0.0-0.4); Hematocrit 41.5 % (42-52); Hemoglobin 13.7 g/dl (14.0-18.0); Imm Gran Abs Auto 0.02 X10*3/uL (0.00-0.03); Imm Gran Pct Auto 0.4 % (0.0-0.4); Lymphocytes Absolute Auto 1.8 X10*3/uL (1.2-4.9); Lymphocytes Percent Auto 36.6 % (20-40); Mean Corpuscular Hemoglobin 30.9 pg (27.0-33.0); Mean Corpuscular Volume 93.5 fL (80-98); Mean Platelet Volume 9.7 fL (9.4-12.4); Monocytes Absolute Auto 0.8 X10*3/uL (0.1-1.2); Monocytes Percent Auto 15.9 % (2-11); Neutrophils Percent Auto 42.5 % (45-73); Platelet Count 141 X10*3/uL (160-400); Red Blood Count 4.44 X10*6/uL (4.60-5.80); Red Cell Distribution Width 13.6 % (11.0-16.0); White Blood Count 4.8 X10*3/uL (4.8-10.8)
--- NOTE | 2020-10-24 11:22 | P.PNHO_ITS ---
Medical Summary - Medical Summary Date of Service: 10/24/20 Medical Summary: DIAGNOSIS: Colon Carcinoma, with Liver mets. CURRENT THERAPY: He underwent a right hemicolectomy on January 26. Started out with a laparoscopic procedure but then had to be opened. Pathology revealed: INVASIVE MODERATELY TO POORLY DIFFERENTIATED ADENOCARCINOMA. TUMOR SITE: CECUM. TUMOR SIZE: 4 X 3 CM. TUMOR PERFORATION: NOT IDENTIFIED. MICROSCOPIC TUMOR EXTENSION: THE TUMOR INVADES THROUGH THE MUSCULARIS PROPRIA AND INTO THE PERICOLIC ADIPOSE TISSUES. MARGINS: THE TUMOR IS 0.3 CM. FROM THE CLOSEST CIRCUMFERENTIAL MARGIN. THE TUMOR IS APPROXIMATELY 11.5 CM. FROM THE PROXIMAL MARGIN AND 12 CM. FROM THE DISTAL RESECTION MARGIN. LYMPH-VASCULAR INVASION: POSSIBLE LYMPHOVASCULAR INVASION IDENTIFIED. PERINEURAL INVASION: IDENTIFIED. TUMOR DEPOSITS: IDENTIFIED. REGIONAL LYMPH NODES: NUMBER EXAMINED: 29. NUMBER POSITIVE: 8. THE LARGEST METASTATIC FOCUS MEASURES 1.2 CM. IN GREATEST DIMENSION WITH NEAR COMPLETE LYMPH NODE REPLACEMENT AND EXTRACAPSULAR EXTENSION. ADDITIONAL FINDINGS: OMENTUM COMPOSED OF UNREMARKABLE ADIPOSE TISSUE. APPENDIX WITH DISTAL LUMINAL OBLITERATION. PATHOLOGIC STAGE: pT3 pN2b pMX. LIVER BIOPSY FROM 02/17: BLOOD AND BENIGN HEPATOCYTES. NO MALIGNANT CELLS SEEN. CURRENT THERAPY: 1. He underwent a right hemicolectomy on January 26. Started out with a laparoscopic procedure but then had to be opened. 2. FOLFOX & Avastin Chemotherapy, S/P 6 cycles, completed 09/15/17. 3. S/P Radiofrequency Ablation, 05/[address] Vázquez. 4. S/P Y-90 Microspheres, administration , by Dr. Vázquez. 5. Planned another Y 90 radio-embolization treatment on August 29. Underwent mapping on August 08. 6. Completed SBRT on the left upper lobe pulmonary nodule. Interval History Interval history: This is a pleasant 80 year-old gentleman here for a follow-up visit. He has been doing extremely well. He denies any complaints. He denies any fever nor chills. He has good energy level. He denies headache no dizziness. No chest pain or trouble breathing. He denies abdominal pain nausea vomiting heartburn indigestion. Bowels are working without any gross blood in it. Enjoys a good appetite. He has gained weight. He is in good spirits. Rest of the review of systems is unremarkable. Previous history: He received the SBRT in June,. The hardest thing was to lie down with arms above the head for 45 minutes. He tolerated it well otherwise. Review of Systems - Constitutional Reports system reviewed and no additional complaints, except as documented - Eyes Reports system reviewed and no additional complaints, except as documented - ENT Reports system reviewed and no additional complaints, except as documented - Cardiovascular Reports system reviewed and no additional complaints, except as documented - Respiratory Reports no additional respiratory complaints - Gastrointestinal Reports system reviewed and no additional complaints, except as documented - Genitourinary Genitourinary: Reports no additional male genitourinary complaints - Musculoskeletal Reports system reviewed and no additional complaints, except as documented - Integumentary/Breasts Skin/Breast: Reports no additional skin complaints - Neurologic Reports system reviewed and no additional complaints, except as documented - Psychiatric Reports system reviewed and no additional complaints, except as documented - Endocrine Reports no additional endocrine complaints - Hematologic/Lymphatic Reports system reviewed and no additional complaints, except as documented - Allergic/Immunologic Reports system reviewed and no additional complaints, except as documented PMFSH Medical History: Medical History (Last Reviewed 10/16/20 @ 08:39 by Juan Henning MD) Anticoagulated on warfarin Chronic GERD Colon cancer Diabetes 1.5, managed as type 2 Difficulty walking Hypertension, essential Liver lesion Lung nodule Functional capacity: independent ambulation Patient : No Family History: Family History (Last Reviewed 10/16/20 @ 08:39 by Juan Henning MD) Father HTN (hypertension) Mother Hyperlipidemia Maternal Grandfather No problems noted. Maternal Grandmother No problems noted. Paternal Grandfather No problems noted. Paternal Grandmother No problems noted. Surgical History: Surgical History (Last Reviewed 10/16/20 @ 08:39 by Juan Henning MD) History of wisdom tooth extraction Social History: Social History (Last Reviewed 10/16/20 @ 08:39 by Juan Henning MD) Alcohol History: Alcohol intake: never Advance Directives: Advance Directives: No Advance Directives Information Provided: No Nutrition Assessment: Patient : No Home Medications and Allergies Current Medications: Current Medications Generic Name Dose Route Start Last Admin Trade Name Freq PRN Reason Stop Dose Admin Heparin Sodium (Porcine) 500 0 unit 10/24/20 11:21 unit/ Sodium Chloride 5 ml IVFLUSH 10/24/20 11:22 ONCE ONE Home Medications Medication Instructions Recorded Confirmed Type omeprazole 20 mg capsule,delayed 20 mg PO DAILY 10/16/20 10/16/20 History release Allergies Allergy/AdvReac Type Severity Reaction Status Date / Time No Known Allergies Allergy Verified 10/08/20 08:55 [No Known Allergies*] Exam Vital signs: Vital Signs Temp 98.3 F 10/24/20 11:08 Pulse 76 10/24/20 11:08 Resp 18 10/24/20 11:08 BP 152/72 H 10/24/20 11:08 Pulse Ox 95 10/24/20 11:08 Intake & Output 10/23/20 10/24/20 10/24/20 18:59 06:59 18:59 Other: Weight 101 kg Weight 101 kg Body Mass Index 33.8 - Constitutional Present: no acute distress - Routine HEENT Exam Head: Present: normal inspection Eye: Present: normal appearance ENT: Present: mucous membranes moist - Routine Neck Exam Present: full ROM - Routine Respiratory Exam Present: CTAB - Routine Cardiovascular Exam Cardiovascular: Present: RRR, S1, S2 - Routine Abdominal Exam Present: soft, nontender - Routine Extremities Exam Present: nontender - Routine Back/Spine/Pelvis Exam Back/Spine: Present: full ROM - Routine Skin Exam Present: intact - Routine Neurological Exam Present: alert, oriented X3 - Detailed Neurological Exam: Coma Scale Eye Opening: Spontaneous (4) - Routine Psychiatric Exam Present: normal affect Data - Labs CBC & Chem 7: 10/24/20 11:00 10/24/20 11:00 Labs: 06/27/20 09:39 Heparin Sodium,Porcine Flush 500 unit 0.9 % Sodium Chloride Flush [NS Flush] 5 ml IVFLUSH ONCE 06/27/20 09:44 Heparin Sodium,Porcine Flush 500 unit IVFLUSH .STK-MED ONE 06/27/20 09:55 CEA [Carcinoembryonic Antigen] Routine Complete Blood Count Auto Diff Routine Comprehensive Met. Panel Routine 08/08/20 09:04 Heparin Sodium,Porcine Flush 500 unit 0.9 % Sodium Chloride Flush [NS Flush] 5 ml IVFLUSH ONCE 08/26/20 08:10 Heparin Sodium,Porcine Flush 500 unit 0.9 % Sodium Chloride Flush [NS Flush] 5 ml IVFLUSH ONCE 08/26/20 10:40 Heparin Sodium,Porcine Flush 500 unit IVFLUSH .STK-MED ONE 08/26/20 10:46 Flu Vacc [id number](6mos up)/PF [Fluarix Quad [id number]] 0.5 ml IM .ONCE ONE 08/26/20 10:53 CEA [Carcinoembryonic Antigen] Routine Complete Blood Count Auto Diff Routine Comprehensive Met. Panel Routine 10/24/20 11:00 Complete Blood Count Auto Diff Routine 10/24/20 11:17 Heparin Sodium,Porcine Flush 500 unit 0.9 % Sodium Chloride Flush [NS Flush] 5 ml IVFLUSH ONCE Laboratory Last Values WBC 4.8 X10*3/uL (4.8-10.8) 10/24/20 11:00 RBC 4.44 X10*6/uL (4.60-5.80) L 10/24/20 11:00 Hgb 13.7 g/dl (14.0-18.0) L 10/24/20 11:00 Hct 41.5 % (42-52) L 10/24/20 11:00 MCV 93.5 fL (80-98) 10/24/20 11:00 MCH 30.9 pg (27.0-33.0) 10/24/20 11:00 MCHC 33.0 g/dl (31.0-36.0) 10/24/20 11:00 RDW 13.6 % (11.0-16.0) 10/24/20 11:00 Plt Count 141 X10*3/uL (160-400) L 10/24/20 11:00 MPV 9.7 fL (9.4-12.4) 10/24/20 11:00 Immature Gran % (Auto) 0.4 % (0.0-0.4) 10/24/20 11:00 Neut % (Auto) 42.5 % (45-73) L 10/24/20 11:00 Lymph % (Auto) 36.6 % (20-40) 10/24/20 11:00 Ector % (Auto) 15.9 % (2-11) H 10/24/20 11:00 Eos % (Auto) 4.0 % (0-4) 10/24/20 11:00 Baso % (Auto) 0.6 % (0-2) 10/24/20 11:00 Lymph # (Auto) 1.8 X10*3/uL (1.2-4.9) 10/24/20 11:00 Ector # (Auto) 0.8 X10*3/uL (0.1-1.2) 10/24/20 11:00 Eos # (Auto) 0.2 X10*3/uL (0.0-0.4) 10/24/20 11:00 Baso # (Auto) 0.0 X10*3/uL (0.0-0.2) 10/24/20 11:00 Abs Immat Gran (auto) 0.02 X10*3/uL (0.00-0.03) 10/24/20 11:00 Absolute Neuts (auto) 2.0 X10*3/uL (2.0-8.3) 10/24/20 11:00 Absolute Nucleated RBC 0.000 X10*3/uL (0.0-0.012) 10/24/20 11:00 Nucleated RBC % (auto) 0.0 /100WBC (0.0-0.2) 10/24/20 11:00 Sodium 137 mmol/L (135-145) 08/26/20 10:53 Potassium 4.1 mmol/l (3.3-5.1) 08/26/20 10:53 Chloride 103 mmol/L (96-108) 08/26/20 10:53 Carbon Dioxide 28 mmol/L (22-29) 08/26/20 10:53 Anion Gap 10 (12-20) L 08/26/20 10:53 BUN 15 mg/dL (9-16) 08/26/20 10:53 Creatinine 0.89 mg/dL (0.5-1.4) 08/26/20 10:53 Estim Creat Clear Calc 77.1 08/26/20 10:53 Estimated GFR > 60 08/26/20 10:53 Random Glucose 110 mg/dL (60-115) 08/26/20 10:53 Calcium 8.3 mg/dL (8.4-10.2) L 08/26/20 10:53 Total Bilirubin 0.5 mg/dL (0.0-1.0) 08/26/20 10:53 AST 31 U/L (5-37) 08/26/20 10:53 ALT 25 U/L (0-40) 08/26/20 10:53 Alkaline Phosphatase 75 U/L (39-117) 08/26/20 10:53 Total Protein 7.6 g/dL (6.5-8.0) 08/26/20 10:53 Albumin 3.7 g/dL (3.5-5.0) 08/26/20 10:53 Carcinoembryonic Ag 135.00 mg/mL D 08/26/20 10:53 Progress Note: A/P (1) Metastatic colon cancer to liver Status: Acute Assessment and plan: This is a pleasant 79 year-old male with metastatic Colon Cancer, completed 6 cycles of chemotherapy, September 15, 2017. He has been regaining his appetite and strength slowly. His CEA level was up at 14.4. on December 03 2017. He had a Cat Scan of abdomen on 12/15/17 which revealed: Abdomen and pelvis: Question slight interval increase in size in liver lesions. No new liver lesion seen. Fatty liver. Postsurgical changes from right he micolectomy. Enlarged prostate gland that protrudes into the base of the bladder. Probable mild diffuse bladder wall thickening. Bilateral inguinal hernias containing fat, right greater than left. Bilateral renal cysts. Stable right adrenal nodule. I referred him to Dr. Case Vázquez, for consideration of radiofrequency embolization therapy. The patient actually underwent the radiofrequency ablation procedure May [address] Vázquez. He did well. It appears that the procedure was successful. June 29, 2018 he had an MRI of the abdomen which revealed: There are 2 metastatic lesions identified within the liver, corresponding with the appearance on prior PET/CT. These lesions demonstrate heterogeneous internal signal, without significant enhancement of the lesions themselves. Mild arterial enhancement in the surrounding hepatic parenchyma, which fades. No new hepatic lesions are identified. Multiple bilateral renal cysts. Exophytic right midpole renal lesion may represent a hemorrhagic or proteinaceous cyst. He just had a PET scan done on March 02 which revealed: 1. There has been a complete metabolic response to therapy of FDG avid no other lesions noted on prior studies. 2. There has been a complete metabolic response of an FDG avid right adrenal nodule. 3. A new 0.5 cm solid left apical pulmonary nodule is present. This is suspicious for a metastasis, but is too small to be characterized on the FDG PET images. Better characterization of the lungs fourth an IV contrast enhanced diagnostic chest CT scan is recommended. 4. No additional abnormalities suspicious for other metastatic or malignant lesions are noted. He has had the pretreatment mapping done on. This was followed by Y- 90 therapy on August 29. MRI of the abdomen from October 30 done at [facility] revealed: Posterior right hepatic Y 90 radioembolization with expected post treatment effect and no residual tumor enhancement within the segment 7 lesion. Ablations cavity in segment 4 a has decreased in size, with some central hypoenhancement. No convincing evidence for residual or recurrent disease. He had a PET scan at [facility] on April 22, which revealed: Persistent peripheral metabolic activity involving the segment 7 metastasis of the right hepatic lobe compatible with persistent disease. Increase in size of the left upper lobe lung nodule, now measuring 15 mm in maximum dimension. New mildly FDG avid right lower lobe lung nodule. These are highly concerning for sites of metastatic disease. This was done on May 17 at [facility], by IR. Pathology revealed: Adenocarcinoma, metastatic, consistent with colonic primary tumor. Min a chemicals studies revealed: SATB 2: Positive in tumor cells. TTS 1: NEGATIVE. CK 20: Positive in tumor cells. CK7: Negative in tumor cells. Since he had declined chemotherapy and again is not interested in receiving that. He was referred for SBRT. He actually completed stereotactic radiosurgery treatment of a left upper lobe lung nodule, to a total dose of 5000 cGY from June 26 to July 05 2020. He had repeat imaging on 09/30/20. This revealed: Post treatment changes in segment 7 of the liver with some increased nodular components both superiorly and inferiorly that appear more pronounced than on the prior MRI imaging from May. More superior area of lobulated hypoenhancement just posterior to the posterior branch of the right portal vein that appeared contiguous with some new thickening in the right adrenal gland. This could represent progression of malignancy as well. The untreated lesion in the right lower lobe of the lung appears minimally changed. He had repeat CT chest on 10/08: Showed multiple new and growing nodules in the right lung. Specifically a metastatic lesion in the right lower lobe measured almost 3 cm as well as a new nodule adjacent to the right hilum. There were also 17 and 10 mm nodule in the upper lobe. The treated lesion in the left upper lobe was slightly smaller. He had a tele visit scheduled with Noel on 10/04. In light of diffuse nature of the progression Dr. Cohen did not feel that further localized therapy would be appropriate. I brought up the option for systemic chemotherapy with him, today. However he is adamantly refusing it, at this point. He said he noted too many side effects, when he had it in the past. PLAN: Dr. Cohen is deferring treatment of any liver lesions, to Dr. Vázquez, in view of the fact that there are pellets in there. I will check with Dr. Vázquez, to see if that remains an option, since he absolutely does not want any systemic treatment. He said he can treat the liver 1 more time. Will set up a follow up appointment with Dr. Vázquez. He will return here in 1 month for a followup visit. He and his daughter will keep me posted, about any symptoms he may developed in the interim. Thank you, CC: Dr. Juan Hnening. Dr. Mojgan Tsai. Dr. Jostin Villa. Dr. Vázquez. Dr. Cohen. - Time Spent With Patient Total time spent is greater than 50% in coordination of care (as documented) at patient's floor/unit and/or counseling patient: 25 - 35 minutes
[2020-10-24 11:32] LABS: Alanine Aminotransferase 28 U/L (0-40); Albumin Level 3.8 g/dL (3.5-5.0); Alkaline Phosphatase 76 U/L (39-117); Anion Gap 10 (12-20); Aspartate Amino Transferase 29 U/L (5-37); Bilirubin Total 0.2 mg/dL (0.0-1.0); Blood Urea Nitrogen 20 mg/dL (9-16); Calcium 8.7 mg/dL (8.4-10.2); Carbon Dioxide 30 mmol/L (22-29); Chloride 101 mmol/L (96-108); Creatinine Clr Calc Pharmacy 74.1; Estimated Glomerular Filt Rate > 60; Glucose Random 91 mg/dL (60-115); Potassium 4.3 mmol/L (3.3-5.1); Sodium 137 mmol/L (135-145); Total Protein 8.1 g/dL (6.5-8.0)
--- NOTE | 2020-10-24 15:59 | MHC.HEMONC ---
Pt here for follow up with Dr Marcelo. States feeling well. Dr Marcelo discussed possibility of chemo treatments with pt, and pt states he will not have chemo due to side effects after last chemo treatments. Pt upset and crying in appointment. Port accessed and flushed with heparin, good blood return.
[2020-11-25 08:21] VITALS: BP 153/77; PULSE 82; RESP 12; TEMP 36.6; O2SAT 98; BMI 33.6
--- NOTE | 2020-11-25 08:28 | PM.HEMONCPN ---
Medical Summary - Medical Summary Date of Service: 11/25/20 Chief complaint: Follow-up for colon cancer with lung and liver metastases. Medical Summary: DIAGNOSIS: Colon Carcinoma, with Liver mets. CURRENT THERAPY: He underwent a right hemicolectomy on January 26. Started out with a laparoscopic procedure but then had to be opened. Pathology revealed: INVASIVE MODERATELY TO POORLY DIFFERENTIATED ADENOCARCINOMA. TUMOR SITE: CECUM. TUMOR SIZE: 4 X 3 CM. TUMOR PERFORATION: NOT IDENTIFIED. MICROSCOPIC TUMOR EXTENSION: THE TUMOR INVADES THROUGH THE MUSCULARIS PROPRIA AND INTO THE PERICOLIC ADIPOSE TISSUES. MARGINS: THE TUMOR IS 0.3 CM. FROM THE CLOSEST CIRCUMFERENTIAL MARGIN. THE TUMOR IS APPROXIMATELY 11.5 CM. FROM THE PROXIMAL MARGIN AND 12 CM. FROM THE DISTAL RESECTION MARGIN. LYMPH-VASCULAR INVASION: POSSIBLE LYMPHOVASCULAR INVASION IDENTIFIED. PERINEURAL INVASION: IDENTIFIED. TUMOR DEPOSITS: IDENTIFIED. REGIONAL LYMPH NODES: NUMBER EXAMINED: 29. NUMBER POSITIVE: 8. THE LARGEST METASTATIC FOCUS MEASURES 1.2 CM. IN GREATEST DIMENSION WITH NEAR COMPLETE LYMPH NODE REPLACEMENT AND EXTRACAPSULAR EXTENSION. ADDITIONAL FINDINGS: OMENTUM COMPOSED OF UNREMARKABLE ADIPOSE TISSUE. APPENDIX WITH DISTAL LUMINAL OBLITERATION. PATHOLOGIC STAGE: pT3 pN2b pMX. LIVER BIOPSY FROM 02/17: BLOOD AND BENIGN HEPATOCYTES. NO MALIGNANT CELLS SEEN. CURRENT THERAPY: 1. He underwent a right hemicolectomy on January 26. Started out with a laparoscopic procedure but then had to be opened. 2. FOLFOX & Avastin Chemotherapy, S/P 6 cycles, completed 09/15/17. 3. S/P Radiofrequency Ablation, 05/[address] Vázquez. 4. S/P Y-90 Microspheres, administration , by Dr. Vázquez. 5. Planned another Y 90 radio-embolization treatment on August 29. Underwent mapping on August 08. 6. Completed SBRT on the left upper lobe pulmonary nodule. Interval History Interval history: This is a pleasant 80 year-old gentleman here for a follow-up visit. He has been doing extremely well. He denies any complaints. He denies any fever nor chills. He has good energy level. He denies headache no dizziness. No chest pain or trouble breathing. He denies abdominal pain nausea vomiting heartburn indigestion. Bowels are working without any gross blood in it. Enjoys a good appetite. He has gained weight. Only time he gets tired is when he is climbing stairs or exercising on the treadmill. He is in good spirits. Rest of the review of systems is unremarkable. I did advise him to get the COVID vaccine. Gave him the numbers to schedule it: 211 and the number for [facility]. Previous history: He received the SBRT in June,. The hardest thing was to lie down with arms above the head for 45 minutes. He tolerated it well otherwise. Review of Systems - Constitutional Reports system reviewed and no additional complaints, except as documented - Eyes Reports system reviewed and no additional complaints, except as documented - ENT Reports system reviewed and no additional complaints, except as documented - Cardiovascular Reports system reviewed and no additional complaints, except as documented - Respiratory Reports no additional respiratory complaints - Gastrointestinal Reports system reviewed and no additional complaints, except as documented - Genitourinary Genitourinary: Reports no additional male genitourinary complaints - Musculoskeletal Reports system reviewed and no additional complaints, except as documented - Integumentary/Breasts Skin/Breast: Reports no additional skin complaints - Neurologic Reports system reviewed and no additional complaints, except as documented - Psychiatric Reports system reviewed and no additional complaints, except as documented - Endocrine Reports no additional endocrine complaints - Hematologic/Lymphatic Reports system reviewed and no additional complaints, except as documented - Allergic/Immunologic Reports system reviewed and no additional complaints, except as documented PMFSH Medical History: Medical History (Last Reviewed 10/16/20 @ 08:39 by Juan Henning MD) Anticoagulated on warfarin Chronic GERD Colon cancer Diabetes 1.5, managed as type 2 Difficulty walking Hypertension, essential Liver lesion Lung nodule Functional capacity: independent ambulation Patient : No Family History: Family History (Last Reviewed 10/16/20 @ 08:39 by Juan Henning MD) Father HTN (hypertension) Mother Hyperlipidemia Maternal Grandfather No problems noted. Maternal Grandmother No problems noted. Paternal Grandfather No problems noted. Paternal Grandmother No problems noted. Surgical History: Surgical History (Last Reviewed 10/16/20 @ 08:39 by Juan Henning MD) History of wisdom tooth extraction Social History: Social History (Last Reviewed 10/16/20 @ 08:39 by Juan Henning MD) Alcohol History: Alcohol intake: never Advance Directives: Advance Directives: No Advance Directives Information Provided: No Nutrition Assessment: Patient : No Home Medications and Allergies Home Medications Medication Instructions Recorded Confirmed Type omeprazole 20 mg capsule,delayed 20 mg PO DAILY 10/16/20 11/25/20 History release Allergies Allergy/AdvReac Type Severity Reaction Status Date / Time No Known Allergies Allergy Verified 11/05/20 09:11 [No Known Allergies*] Exam Vital signs: Vital Signs Temp 97.8 F 11/25/20 08:21 Pulse 82 11/25/20 08:21 Resp 12 11/25/20 08:21 BP 153/77 H 11/25/20 08:21 Pulse Ox 98 11/25/20 08:21 Intake & Output 11/24/20 11/25/20 11/25/20 18:59 06:59 18:59 Other: Weight 100.3 kg Weight in Grams [id number] Weight 100.3 kg Body Mass Index 33.6 - Constitutional Present: no acute distress - Routine HEENT Exam Head: Present: normal inspection Eye: Present: normal appearance ENT: Present: mucous membranes moist - Routine Neck Exam Present: full ROM - Routine Respiratory Exam Present: CTAB - Routine Cardiovascular Exam Cardiovascular: Present: RRR, S1, S2 - Routine Abdominal Exam Present: soft, nontender - Routine Extremities Exam Present: nontender - Routine Back/Spine/Pelvis Exam Back/Spine: Present: full ROM - Routine Skin Exam Present: intact - Routine Neurological Exam Present: alert, oriented X3 - Detailed Neurological Exam: Coma Scale Eye Opening: Spontaneous (4) - Routine Psychiatric Exam Present: normal affect Data - Labs CBC & Chem 7: 11/25/20 08:35 11/25/20 08:35 Labs: 06/27/20 09:39 Heparin Sodium,Porcine Flush 500 unit 0.9 % Sodium Chloride Flush [NS Flush] 5 ml IVFLUSH ONCE 06/27/20 09:44 Heparin Sodium,Porcine Flush 500 unit IVFLUSH .STK-MED ONE 06/27/20 09:55 CEA [Carcinoembryonic Antigen] Routine Complete Blood Count Auto Diff Routine Comprehensive Met. Panel Routine 08/08/20 09:04 Heparin Sodium,Porcine Flush 500 unit 0.9 % Sodium Chloride Flush [NS Flush] 5 ml IVFLUSH ONCE 08/26/20 08:10 Heparin Sodium,Porcine Flush 500 unit 0.9 % Sodium Chloride Flush [NS Flush] 5 ml IVFLUSH ONCE 08/26/20 10:40 Heparin Sodium,Porcine Flush 500 unit IVFLUSH .STK-MED ONE 08/26/20 10:46 Flu Vacc [id number](6mos up)/PF [Fluarix Quad [id number]] 0.5 ml IM .ONCE ONE 08/26/20 10:53 CEA [Carcinoembryonic Antigen] Routine Complete Blood Count Auto Diff Routine Comprehensive Met. Panel Routine 10/24/20 11:00 Complete Blood Count Auto Diff Routine 10/24/20 11:17 Heparin Sodium,Porcine Flush 500 unit 0.9 % Sodium Chloride Flush [NS Flush] 5 ml IVFLUSH ONCE Laboratory Last Values WBC 4.8 X10*3/uL (4.8-10.8) 10/24/20 11:00 RBC 4.44 X10*6/uL (4.60-5.80) L 10/24/20 11:00 Hgb 13.7 g/dl (14.0-18.0) L 10/24/20 11:00 Hct 41.5 % (42-52) L 10/24/20 11:00 MCV 93.5 fL (80-98) 10/24/20 11:00 MCH 30.9 pg (27.0-33.0) 10/24/20 11:00 MCHC 33.0 g/dl (31.0-36.0) 10/24/20 11:00 RDW 13.6 % (11.0-16.0) 10/24/20 11:00 Plt Count 141 X10*3/uL (160-400) L 10/24/20 11:00 MPV 9.7 fL (9.4-12.4) 10/24/20 11:00 Immature Gran % (Auto) 0.4 % (0.0-0.4) 10/24/20 11:00 Neut % (Auto) 42.5 % (45-73) L 10/24/20 11:00 Lymph % (Auto) 36.6 % (20-40) 10/24/20 11:00 Fajardo % (Auto) 15.9 % (2-11) H 10/24/20 11:00 Eos % (Auto) 4.0 % (0-4) 10/24/20 11:00 Baso % (Auto) 0.6 % (0-2) 10/24/20 11:00 Lymph # (Auto) 1.8 X10*3/uL (1.2-4.9) 10/24/20 11:00 Fajardo # (Auto) 0.8 X10*3/uL (0.1-1.2) 10/24/20 11:00 Eos # (Auto) 0.2 X10*3/uL (0.0-0.4) 10/24/20 11:00 Baso # (Auto) 0.0 X10*3/uL (0.0-0.2) 10/24/20 11:00 Abs Immat Gran (auto) 0.02 X10*3/uL (0.00-0.03) 10/24/20 11:00 Absolute Neuts (auto) 2.0 X10*3/uL (2.0-8.3) 10/24/20 11:00 Absolute Nucleated RBC 0.000 X10*3/uL (0.0-0.012) 10/24/20 11:00 Nucleated RBC % (auto) 0.0 /100WBC (0.0-0.2) 10/24/20 11:00 Sodium 137 mmol/L (135-145) 08/26/20 10:53 Potassium 4.1 mmol/l (3.3-5.1) 08/26/20 10:53 Chloride 103 mmol/L (96-108) 08/26/20 10:53 Carbon Dioxide 28 mmol/L (22-29) 08/26/20 10:53 Anion Gap 10 (12-20) L 08/26/20 10:53 BUN 15 mg/dL (9-16) 08/26/20 10:53 Creatinine 0.89 mg/dL (0.5-1.4) 08/26/20 10:53 Estim Creat Clear Calc 77.1 08/26/20 10:53 Estimated GFR > 60 08/26/20 10:53 Random Glucose 110 mg/dL (60-115) 08/26/20 10:53 Calcium 8.3 mg/dL (8.4-10.2) L 08/26/20 10:53 Total Bilirubin 0.5 mg/dL (0.0-1.0) 08/26/20 10:53 AST 31 U/L (5-37) 08/26/20 10:53 ALT 25 U/L (0-40) 08/26/20 10:53 Alkaline Phosphatase 75 U/L (39-117) 08/26/20 10:53 Total Protein 7.6 g/dL (6.5-8.0) 08/26/20 10:53 Albumin 3.7 g/dL (3.5-5.0) 08/26/20 10:53 Carcinoembryonic Ag 135.00 mg/mL D 08/26/20 10:53 Progress Note: A/P (1) Metastatic colon cancer to liver Status: Acute Assessment and plan: This is a pleasant 79 year-old male with metastatic Colon Cancer, completed 6 cycles of chemotherapy, September 15, 2017. He has been regaining his appetite and strength slowly. His CEA level was up at 14.4. on December 03 2017. He had a Cat Scan of abdomen on 12/15/17 which revealed: Abdomen and pelvis: Question slight interval increase in size in liver lesions. No new liver lesion seen. Fatty liver. Postsurgical changes from right hemicolectomy. Enlarged prostate gland that protrudes into the base of the bladder. Probable mild diffuse bladder wall thickening. Bilateral inguinal hernias containing fat, right greater than left. Bilateral renal cysts. Stable right adrenal nodule. I referred him to Dr. Case Vázquez, for consideration of radiofrequency embolization therapy. The patient actually underwent the radiofrequency ablation procedure May [address] Vázquez. He did well. It appears that the procedure was successful. June 29, 2018 he had an MRI of the abdomen which revealed: There are 2 metastatic lesions identified within the liver, corresponding with the appearance on prior PET/CT. These lesions demonstrate heterogeneous internal signal, without significant enhancement of the lesions themselves. Mild arterial enhancement in the surrounding hepatic parenchyma, which fades. No new hepatic lesions are identified. Multiple bilateral renal cysts. Exophytic right midpole renal lesion may represent a hemorrhagic or proteinaceous cyst. He just had a PET scan done on March 02 which revealed: 1. There has been a complete metabolic response to therapy of FDG avid no other lesions noted on prior studies. 2. There has been a complete metabolic response of an FDG avid right adrenal nodule. 3. A new 0.5 cm solid left apical pulmonary nodule is present. This is suspicious for a metastasis, but is too small to be characterized on the FDG PET images. Better characterization of the lungs fourth an IV contrast enhanced diagnostic chest CT scan is recommended. 4. No additional abnormalities suspicious for other metastatic or malignant lesions are noted. He has had the pretreatment mapping done on. This was followed by Y- 90 therapy on August 29. MRI of the abdomen from October 30 done at [facility] revealed: Posterior right hepatic Y 90 radioembolization with expected post treatment effect and no residual tumor enhancement within the segment 7 lesion. Ablations cavity in segment 4 a has decreased in size, with some central hypoenhancement. No convincing evidence for residual or recurrent disease. He had a PET scan at [facility] on April 22, which revealed: Persistent peripheral metabolic activity involving the segment 7 metastasis of the right hepatic lobe compatible with persistent disease. Increase in size of the left upper lobe lung nodule, now measuring 15 mm in maximum dimension. New mildly FDG avid right lower lobe lung nodule. These are highly concerning for sites of metastatic disease. This was done on May 17 at [facility], by IR. Pathology revealed: Adenocarcinoma, metastatic, consistent with colonic primary tumor. Min a chemicals studies revealed: SATB 2: Positive in tumor cells. TTS 1: NEGATIVE. CK 20: Positive in tumor cells. CK7: Negative in tumor cells. Since he had declined chemotherapy and again is not interested in receiving that. He was referred for SBRT. He actually completed stereotactic radiosurgery treatment of a left upper lobe lung nodule, to a total dose of 5000 cGY from June 26 to July 05 2020. He had repeat imaging on 09/30/20. This revealed: Post treatment changes in segment 7 of the liver with some increased nodular components both superiorly and inferiorly that appear more pronounced than on the prior MRI imaging from May. More superior area of lobulated hypoenhancement just posterior to the posterior branch of the right portal vein that appeared contiguous with some new thickening in the right adrenal gland. This could represent progression of malignancy as well. The untreated lesion in the right lower lobe of the lung appears minimally changed. He had repeat CT chest on 10/08: Showed multiple new and growing nodules in the right lung. Specifically a metastatic lesion in the right lower lobe measured almost 3 cm as well as a new nodule adjacent to the right hilum. There were also 17 and 10 mm nodule in the upper lobe. The treated lesion in the left upper lobe was slightly smaller. He had a tele visit scheduled with Noel on 10/04. In light of diffuse nature of the progression Dr. Cohen did not feel that further localized therapy would be appropriate. I brought up the option for systemic chemotherapy with him, today. However he is adamantly refusing it, at this point. He said he noted too many side effects, when he had it in the past. Dr. Cohen is deferring treatment of any liver lesions, to Dr. Vázquez, in view of the fact that there are pellets in there. I checked with Dr. Vázquez, to see if that remains an option, since he absolutely does not want any systemic treatment. He said he can treat the liver 1 more time. He actually has an appointment with Dr. Vázquez, later today. PLAN: I will touch base with him, to see if he wants to proceed with liver directed therapy. If he decides to pursue systemic treatment I would consider FOLFIRI with Erbitux/Vectibix. I will check his K-bala mutation status. He will return here in 6 weeks for port flush and a followup visit. However will set him up for chemotherapy if he decides to proceed with it. He and his daughter will keep me posted, about any symptoms he may developed in the interim. Thank you, CC: Dr. Juan Henning. Dr. Mojgan Tsai. Dr. Jostin Villa. Dr. Vázquez. Dr. Cohen. - Time Spent With Patient Total time spent is greater than 50% in coordination of care (as documented) at patient's floor/unit and/or counseling patient: 25 - 35 minutes
[2020-11-25 08:50] LABS: MANUAL DIFF FLAG NO
[2020-11-25 09:02] LABS: Basophils Percent Auto 0.5 % (0-2); Eosinophils Absolute Auto 0.2 X10*3/uL (0.0-0.4); Eosinophils Percent Auto 4.1 % (0-4); Hematocrit 41.2 % (42-52); Hemoglobin 13.7 g/dl (14.0-18.0); Imm Gran Abs Auto 0.01 X10*3/uL (0.00-0.03); Imm Gran Pct Auto 0.2 % (0.0-0.4); Lymphocytes Absolute Auto 1.4 X10*3/uL (1.2-4.9); Lymphocytes Percent Auto 34.7 % (20-40); Mean Corpuscular HGB Conc 33.3 g/dl (31.0-36.0); Mean Corpuscular Hemoglobin 31.2 pg (27.0-33.0); Mean Corpuscular Volume 93.8 fL (80-98); Mean Platelet Volume 9.9 fL (9.4-12.4); Monocytes Absolute Auto 0.6 X10*3/uL (0.1-1.2); Monocytes Percent Auto 13.5 % (2-11); Platelet Count 149 X10*3/uL (160-400); Red Blood Count 4.39 X10*6/uL (4.60-5.80); Red Cell Distribution Width 13.3 % (11.0-16.0); White Blood Count 4.2 X10*3/uL (4.8-10.8)
[2020-11-25 09:26] LABS: Alanine Aminotransferase 23 U/L (0-40); Albumin Level 3.8 g/dL (3.5-5.0); Alkaline Phosphatase 82 U/L (39-117); Anion Gap 11 (12-20); Aspartate Amino Transferase 27 U/L (5-37); Bilirubin Total 0.4 mg/dL (0.0-1.0); Blood Urea Nitrogen 22 mg/dL (9-16); Calcium 8.7 mg/dL (8.4-10.2); Carbon Dioxide 30 mmol/L (22-29); Chloride 99 mmol/L (96-108); Creatinine Clr Calc Pharmacy 60.8; Estimated Glomerular Filt Rate > 60; Glucose Random 218 mg/dL (60-115); Potassium 4.3 mmol/L (3.3-5.1); Sodium 136 mmol/L (135-145); Total Protein 8.1 g/dL (6.5-8.0)
--- NOTE | 2020-11-25 09:45 | MHC.HEMONCMA ---
Patient present to f/u on lung ca. History reviewed, labs drawn and pt to return in a month.
--- NOTE | 2020-11-25 10:43 | MHC.HEMONCSW ---
patient seen in follow up. denies distress or concerns. support provided.
[2021-01-07 10:36] VITALS: BP 152/80; PULSE 76; RESP 12; TEMP 36.4; O2SAT 96; BMI 32.9
--- NOTE | 2021-01-07 10:53 | PM.HEMONCPN ---
Medical Summary - Medical Summary Date of Service: 01/07/21 Chief complaint: Follow-up for: Metastatic colon carcinoma. Medical Summary: DIAGNOSIS: Colon Carcinoma, with Liver mets. CURRENT THERAPY: He underwent a right hemicolectomy on January 26. Started out with a laparoscopic procedure but then had to be opened. Pathology revealed: INVASIVE MODERATELY TO POORLY DIFFERENTIATED ADENOCARCINOMA. TUMOR SITE: CECUM. TUMOR SIZE: 4 X 3 CM. TUMOR PERFORATION: NOT IDENTIFIED. MICROSCOPIC TUMOR EXTENSION: THE TUMOR INVADES THROUGH THE MUSCULARIS PROPRIA AND INTO THE PERICOLIC ADIPOSE TISSUES. MARGINS: THE TUMOR IS 0.3 CM. FROM THE CLOSEST CIRCUMFERENTIAL MARGIN. THE TUMOR IS APPROXIMATELY 11.5 CM. FROM THE PROXIMAL MARGIN AND 12 CM. FROM THE DISTAL RESECTION MARGIN. LYMPH-VASCULAR INVASION: POSSIBLE LYMPHOVASCULAR INVASION IDENTIFIED. PERINEURAL INVASION: IDENTIFIED. TUMOR DEPOSITS: IDENTIFIED. REGIONAL LYMPH NODES: NUMBER EXAMINED: 29. NUMBER POSITIVE: 8. THE LARGEST METASTATIC FOCUS MEASURES 1.2 CM. IN GREATEST DIMENSION WITH NEAR COMPLETE LYMPH NODE REPLACEMENT AND EXTRACAPSULAR EXTENSION. ADDITIONAL FINDINGS: OMENTUM COMPOSED OF UNREMARKABLE ADIPOSE TISSUE. APPENDIX WITH DISTAL LUMINAL OBLITERATION. PATHOLOGIC STAGE: pT3 pN2b pMX. LIVER BIOPSY FROM 02/17: BLOOD AND BENIGN HEPATOCYTES. NO MALIGNANT CELLS SEEN. CURRENT THERAPY: 1. He underwent a right hemicolectomy on January 26. Started out with a laparoscopic procedure but then had to be opened. 2. FOLFOX & Avastin Chemotherapy, S/P 6 cycles, completed 09/15/17. 3. S/P Radiofrequency Ablation, 05/[address] Vázquez. 4. S/P Y-90 Microspheres, administration , by Dr. Vázquez. 5. Planned another Y 90 radio-embolization treatment on August 29. Underwent mapping on August 08. 6. Completed SBRT on the left upper lobe pulmonary nodule. Interval History Interval history: This is a pleasant 80 year-old gentleman here for a follow-up visit. He has been doing extremely well. He denies any complaints. He denies any fever nor chills. He has good energy level. He denies headache no dizziness. No chest pain or trouble breathing. He denies abdominal pain nausea vomiting heartburn indigestion. Bowels are working without any gross blood in it. Enjoys a good appetite. He has gained weight. Only time he gets tired is when he is climbing stairs or exercising on the treadmill, or while doing yd work. He is in good spirits. Rest of the review of systems is unremarkable. He just got the COVID vaccine, 5 is ir, yesterday. Second dose is scheduled for 01/26. Previous history: He received the SBRT in June,. The hardest thing was to lie down with arms above the head for 45 minutes. He tolerated it well otherwise. Review of Systems - Constitutional Reports no additional constitutional complaints - Eyes Reports no additional eye complaints - ENT Reports no additional ear, nose, mouth, and throat complaints - Cardiovascular Reports no additional cardiovascular complaints - Respiratory Reports no additional respiratory complaints - Gastrointestinal Reports no additional gastrointestinal complaints - Genitourinary Genitourinary: Reports no additional male genitourinary complaints - Musculoskeletal Reports no additional musculoskeletal complaints - Integumentary/Breasts Skin/Breast: Reports no additional skin complaints - Neurologic Reports no additional neurologic complaints - Psychiatric Reports no additional psychiatric complaints - Endocrine Reports no additional endocrine complaints - Hematologic/Lymphatic Reports no additional hematologic/lymphatic complaints - Allergic/Immunologic Reports no additional allergic/immunologic complaints [facility] Medical History: Medical History (Last Reviewed 01/07/21 @ 10:41 by Tyesha Mansfield) Anticoagulated on warfarin Chronic GERD Colon cancer Diabetes 1.5, managed as type 2 Difficulty walking Hypertension, essential Liver lesion Lung nodule Functional capacity: independent ambulation Patient : No Family History: Family History (Last Reviewed 01/07/21 @ 10:41 by Tyesha Mansfield) Father HTN (hypertension) Mother Hyperlipidemia Maternal Grandfather No problems noted. Maternal Grandmother No problems noted. Paternal Grandfather No problems noted. Paternal Grandmother No problems noted. Surgical History: Surgical History (Last Reviewed 01/07/21 @ 10:41 by Tyesha Mansfield) History of wisdom tooth extraction Social History: Social History (Last Updated 01/07/21 @ 10:42 by Tyesha Mansfield) Alcohol History: Alcohol intake: current Alcohol History Details: Alcohol intake frequency: holiday/special occasion Tobacco History: Smoking Status: Never smoker Substance Use History: Use of substances other than those prescribed or required for medical reasons: No Advance Directives: Advance Directives: No Advance Directives Information Provided: No Nutrition Assessment: Patient : No Smoking status: Never smoker Oncology Screenings - ECOG Performance Status ECOG Performance Status: 0 Home Medications and Allergies Home Medications Medication Instructions Recorded Confirmed Type omeprazole 20 mg capsule,delayed 20 mg PO DAILY 10/16/20 11/25/20 History release Allergies Allergy/AdvReac Type Severity Reaction Status Date / Time No Known Allergies Allergy Verified 12/31/20 08:49 [No Known Allergies*] Exam Vital signs: Vital Signs Temp 97.5 F 01/07/21 10:36 Pulse 76 01/07/21 10:36 Resp 12 01/07/21 10:36 BP 152/80 H 01/07/21 10:36 Pulse Ox 96 01/07/21 10:36 Intake & Output 01/06/21 01/07/21 01/07/21 18:59 06:59 18:59 Other: Weight 98.3 kg [place] Weight in Grams [id number] Weight 98.3 kg Body Mass Index 32.9 - Constitutional Present: no acute distress - Routine HEENT Exam Head: Present: normal inspection Eye: Present: normal appearance ENT: Present: mucous membranes moist - Routine Neck Exam Present: full ROM - Routine Respiratory Exam Present: CTAB - Routine Cardiovascular Exam Cardiovascular: Present: RRR, S1, S2 - Routine Abdominal Exam Present: soft, nontender - Routine Extremities Exam Present: nontender - Routine Back/Spine/Pelvis Exam Back/Spine: Present: full ROM - Routine Skin Exam Present: intact - Routine Neurological Exam Present: alert, oriented X3 - Detailed Neurological Exam: Coma Scale Eye Opening: Spontaneous (4) - Routine Psychiatric Exam Present: normal affect Data - Labs CBC & Chem 7: 01/07/21 10:37 01/07/21 10:37 Labs: 06/27/20 09:39 Heparin Sodium,Porcine Flush 500 unit 0.9 % Sodium Chloride Flush [NS Flush] 5 ml IVFLUSH ONCE 06/27/20 09:44 Heparin Sodium,Porcine Flush 500 unit IVFLUSH .STK-MED ONE 06/27/20 09:55 CEA [Carcinoembryonic Antigen] Routine Complete Blood Count Auto Diff Routine Comprehensive Met. Panel Routine 08/08/20 09:04 Heparin Sodium,Porcine Flush 500 unit 0.9 % Sodium Chloride Flush [NS Flush] 5 ml IVFLUSH ONCE 08/26/20 08:10 Heparin Sodium,Porcine Flush 500 unit 0.9 % Sodium Chloride Flush [NS Flush] 5 ml IVFLUSH ONCE 08/26/20 10:40 Heparin Sodium,Porcine Flush 500 unit IVFLUSH .STK-MED ONE 08/26/20 10:46 Flu Vacc [id number](6mos up)/PF [Fluarix Quad [id number]] 0.5 ml IM .ONCE ONE 08/26/20 10:53 CEA [Carcinoembryonic Antigen] Routine Complete Blood Count Auto Diff Routine Comprehensive Met. Panel Routine 10/24/20 11:00 Complete Blood Count Auto Diff Routine 10/24/20 11:17 Heparin Sodium,Porcine Flush 500 unit 0.9 % Sodium Chloride Flush [NS Flush] 5 ml IVFLUSH ONCE Laboratory Last Values WBC 4.8 X10*3/uL (4.8-10.8) 10/24/20 11:00 RBC 4.44 X10*6/uL (4.60-5.80) L 10/24/20 11:00 Hgb 13.7 g/dl (14.0-18.0) L 10/24/20 11:00 Hct 41.5 % (42-52) L 10/24/20 11:00 MCV 93.5 fL (80-98) 10/24/20 11:00 MCH 30.9 pg (27.0-33.0) 10/24/20 11:00 MCHC 33.0 g/dl (31.0-36.0) 10/24/20 11:00 RDW 13.6 % (11.0-16.0) 10/24/20 11:00 Plt Count 141 X10*3/uL (160-400) L 10/24/20 11:00 MPV 9.7 fL (9.4-12.4) 10/24/20 11:00 Immature Gran % (Auto) 0.4 % (0.0-0.4) 10/24/20 11:00 Neut % (Auto) 42.5 % (45-73) L 10/24/20 11:00 Lymph % (Auto) 36.6 % (20-40) 10/24/20 11:00 Bell % (Auto) 15.9 % (2-11) H 10/24/20 11:00 Eos % (Auto) 4.0 % (0-4) 10/24/20 11:00 Baso % (Auto) 0.6 % (0-2) 10/24/20 11:00 Lymph # (Auto) 1.8 X10*3/uL (1.2-4.9) 10/24/20 11:00 Bell # (Auto) 0.8 X10*3/uL (0.1-1.2) 10/24/20 11:00 Eos # (Auto) 0.2 X10*3/uL (0.0-0.4) 10/24/20 11:00 Baso # (Auto) 0.0 X10*3/uL (0.0-0.2) 10/24/20 11:00 Abs Immat Gran (auto) 0.02 X10*3/uL (0.00-0.03) 10/24/20 11:00 Absolute Neuts (auto) 2.0 X10*3/uL (2.0-8.3) 10/24/20 11:00 Absolute Nucleated RBC 0.000 X10*3/uL (0.0-0.012) 10/24/20 11:00 Nucleated RBC % (auto) 0.0 /100WBC (0.0-0.2) 10/24/20 11:00 Sodium 137 mmol/L (135-145) 08/26/20 10:53 Potassium 4.1 mmol/l (3.3-5.1) 08/26/20 10:53 Chloride 103 mmol/L (96-108) 08/26/20 10:53 Carbon Dioxide 28 mmol/L (22-29) 08/26/20 10:53 Anion Gap 10 (12-20) L 08/26/20 10:53 BUN 15 mg/dL (9-16) 08/26/20 10:53 Creatinine 0.89 mg/dL (0.5-1.4) 08/26/20 10:53 Estim Creat Clear Calc 77.1 08/26/20 10:53 Estimated GFR > 60 08/26/20 10:53 Random Glucose 110 mg/dL (60-115) 08/26/20 10:53 Calcium 8.3 mg/dL (8.4-10.2) L 08/26/20 10:53 Total Bilirubin 0.5 mg/dL (0.0-1.0) 08/26/20 10:53 AST 31 U/L (5-37) 08/26/20 10:53 ALT 25 U/L (0-40) 08/26/20 10:53 Alkaline Phosphatase 75 U/L (39-117) 08/26/20 10:53 Total Protein 7.6 g/dL (6.5-8.0) 08/26/20 10:53 Albumin 3.7 g/dL (3.5-5.0) 08/26/20 10:53 Carcinoembryonic Ag 135.00 mg/mL D 08/26/20 10:53 Progress Note: A/P (1) Metastatic colon cancer to liver Status: Acute Assessment and plan: This is a pleasant 79 year-old male with metastatic Colon Cancer, completed 6 cycles of chemotherapy, September 15, 2017. He has been regaining his appetite and strength slowly. His CEA level was up at 14.4. on December 03 2017. He had a Cat Scan of abdomen on 12/15/17 which revealed: Abdomen and pelvis: Question slight interval increase in size in liver lesions. No new liver lesion seen. Fatty liver. Postsurgical changes from right hemicolectomy. Enlarged prostate gland that protrudes into the base of the bladder. Probable mild diffuse bladder wall thickening. Bilateral inguinal hernias containing fat, right greater than left. Bilateral renal cysts. Stable right adrenal nodule. I referred him to Dr. Case Vázquez, for consideration of radiofrequency embolization therapy. The patient actually underwent the radiofrequency ablation procedure May [address] Vázquez. He did well. It appears that the procedure was successful. June 29, 2018 he had an MRI of the abdomen which revealed: There are 2 metastatic lesions identified within the liver, corresponding with the appearance on prior PET/CT. These lesions demonstrate heterogeneous internal signal, without significant enhancement of the lesions themselves. Mild arterial enhancement in the surrounding hepatic parenchyma, which fades. No new hepatic lesions are identified. Multiple bilateral renal cysts. Exophytic right midpole renal lesion may represent a hemorrhagic or proteinaceous cyst. He just had a PET scan done on March 02 which revealed: 1. There has been a complete metabolic response to therapy of FDG avid no other lesions noted on prior studies. 2. There has been a complete metabolic response of an FDG avid right adrenal nodule. 3. A new 0.5 cm solid left apical pulmonary nodule is present. This is suspicious for a metastasis, but is too small to be characterized on the FDG PET images. Better characterization of the lungs fourth an IV contrast enhanced diagnostic chest CT scan is recommended. 4. No additional abnormalities suspicious for other metastatic or malignant lesions are noted. He has had the pretreatment mapping done on. This was followed by Y- 90 therapy on August 29. MRI of the abdomen from October 30 done at [facility] revealed: Posterior right hepatic Y 90 radioembolization with expected post treatment effect and no residual tumor enhancement within the segment 7 lesion. Ablations cavity in segment 4 a has decreased in size, with some central hypoenhancement. No convincing evidence for residual or recurrent disease. He had a PET scan at [facility] on April 22, which revealed: Persistent peripheral metabolic activity involving the segment 7 metastasis of the right hepatic lobe compatible with persistent disease. Increase in size of the left upper lobe lung nodule, now measuring 15 mm in maximum dimension. New mildly FDG avid right lower lobe lung nodule. These are highly concerning for sites of metastatic disease. This was done on May 17 at [facility], by IR. Pathology revealed: Adenocarcinoma, metastatic, consistent with colonic primary tumor. Min a chemicals studies revealed: SATB 2: Positive in tumor cells. TTS 1: NEGATIVE. CK 20: Positive in tumor cells. CK7: Negative in tumor cells. Since he had declined chemotherapy and again is not interested in receiving that. He was referred for SBRT. He actually completed stereotactic radiosurgery treatment of a left upper lobe lung nodule, to a total dose of 5000 cGY from June 26 to July 05 2020. He had repeat imaging on 09/30/20. This revealed: Post treatment changes in segment 7 of the liver with some increased nodular components both superiorly and inferiorly that appear more pronounced than on the prior MRI imaging from May. More superior area of lobulated hypoenhancement just posterior to the posterior branch of the right portal vein that appeared contiguous with some new thickening in the right adrenal gland. This could represent progression of malignancy as well. The untreated lesion in the right lower lobe of the lung appears minimally changed. He had repeat CT chest on 10/08: Showed multiple new and growing nodules in the right lung. Specifically a metastatic lesion in the right lower lobe measured almost 3 cm as well as a new nodule adjacent to the right hilum. There were also 17 and 10 mm nodule in the upper lobe. The treated lesion in the left upper lobe was slightly smaller. He had a tele visit scheduled with Noel on 10/04. In light of diffuse nature of the progression Dr. Cohen did not feel that further localized therapy would be appropriate. I brought up the option for systemic chemotherapy with him, today. However he is adamantly refusing it, at this point. He said he noted too many side effects, when he had it in the past. Dr. Cohen is deferring treatment of any liver lesions, to Dr. Vázquez, in view of the fact that there are pellets in there. I checked with Dr. Vázquez, to see if that remains an option, since he absolutely does not want any systemic treatment. He saw Dr. Vázquez, about a month ago. At that time he was willing to proceed with systemic chemotherapy. His CEA level from 11/25 was 308. 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 I was planning to treat him with FOLFIRI. However right now he declines it. He is trying some alternative treatment with turmeric, black pepper on wheat bread. PLAN: Will proceed with reimaging, to establish a baseline. He said he will decide based upon the results. If he decides to pursue systemic treatment I would treat him with FOLFIRI. He will return here in 6 weeks for port flush and a followup visit. However will set him up for chemotherapy if he decides to proceed with it. He and his daughter will keep me posted, about any symptoms he may developed in the interim. Thank you, CC: Dr. Juan Henning. Dr. Couch. Dr. Jostin Villa. Dr. Vázquez. Dr. Cohen. - Time Spent With Patient Total time spent is greater than 50% in coordination of care (as documented) at patient's floor/unit and/or counseling patient: 25 - 35 minutes
[2021-01-07 11:23] LABS: MANUAL DIFF FLAG NO
[2021-01-07 11:28] LABS: Basophils Percent Auto 0.7 % (0-2); Eosinophils Absolute Auto 0.2 X10*3/uL (0.0-0.4); Eosinophils Percent Auto 3.3 % (0-4); Hemoglobin 13.3 g/dl (14.0-18.0); Imm Gran Abs Auto 0.01 X10*3/uL (0.00-0.03); Imm Gran Pct Auto 0.2 % (0.0-0.4); Lymphocytes Absolute Auto 1.4 X10*3/uL (1.2-4.9); Lymphocytes Percent Auto 30.9 % (20-40); Mean Corpuscular HGB Conc 32.4 g/dl (31.0-36.0); Mean Corpuscular Hemoglobin 30.5 pg (27.0-33.0); Mean Platelet Volume 10.5 fL (9.4-12.4); Monocytes Absolute Auto 0.6 X10*3/uL (0.1-1.2); Monocytes Percent Auto 12.9 % (2-11); Neutrophils Absolute Auto 2.4 X10*3/uL (2.0-8.3); Platelet Count 172 X10*3/uL (160-400); Red Blood Count 4.36 X10*6/uL (4.60-5.80); Red Cell Distribution Width 12.9 % (11.0-16.0); White Blood Count 4.6 X10*3/uL (4.8-10.8)
[2021-01-07 11:51] LABS: Alanine Aminotransferase 29 U/L (0-40); Albumin Level 3.8 g/dL (3.5-5.0); Alkaline Phosphatase 111 U/L (39-117); Anion Gap 13 (12-20); Aspartate Amino Transferase 35 U/L (5-37); Bilirubin Total 0.8 mg/dL (0.0-1.0); Blood Urea Nitrogen 18 mg/dL (9-16); Calcium 8.8 mg/dL (8.4-10.2); Carbon Dioxide 27 mmol/L (22-29); Chloride 101 mmol/L (96-108); Estimated Glomerular Filt Rate > 60; Glucose Random 132 mg/dL (60-115); Potassium 4.2 mmol/L (3.3-5.1); Sodium 137 mmol/L (135-145); Total Protein 8.5 g/dL (6.5-8.0)
--- NOTE | 2021-01-07 15:43 | MHC.HEMONCMA ---
Pt present to f/u on pulmonary lung nodule. History reviewed, labs drawn and pt to return in 2 months.
--- NOTE | 2021-01-08 10:51 | MHC.HEMONCMA ---
Placed bother CT of chest with and with out contrast and CT of abdomen/pelvis with and with out contrast in order manager business management.
--- NOTE | 2021-02-20 09:50 | P.PNHO_ITS ---
Medical Summary - Medical Summary Date of Service: 02/20/21 Chief complaint: Follow-up for: Metastatic colon carcinoma. Medical Summary: DIAGNOSIS: Colon Carcinoma, with Liver mets. CURRENT THERAPY: He underwent a right hemicolectomy on January 26. Started out with a laparoscopic procedure but then had to be opened. Pathology revealed: INVASIVE MODERATELY TO POORLY DIFFERENTIATED ADENOCARCINOMA. TUMOR SITE: CECUM. TUMOR SIZE: 4 X 3 CM. TUMOR PERFORATION: NOT IDENTIFIED. MICROSCOPIC TUMOR EXTENSION: THE TUMOR INVADES THROUGH THE MUSCULARIS PROPRIA AND INTO THE PERICOLIC ADIPOSE TISSUES. MARGINS: THE TUMOR IS 0.3 CM. FROM THE CLOSEST CIRCUMFERENTIAL MARGIN. THE TUMOR IS APPROXIMATELY 11.5 CM. FROM THE PROXIMAL MARGIN AND 12 CM. FROM THE DISTAL RESECTION MARGIN. LYMPH-VASCULAR INVASION: POSSIBLE LYMPHOVASCULAR INVASION IDENTIFIED. PERINEURAL INVASION: IDENTIFIED. TUMOR DEPOSITS: IDENTIFIED. REGIONAL LYMPH NODES: NUMBER EXAMINED: 29. NUMBER POSITIVE: 8. THE LARGEST METASTATIC FOCUS MEASURES 1.2 CM. IN GREATEST DIMENSION WITH NEAR COMPLETE LYMPH NODE REPLACEMENT AND EXTRACAPSULAR EXTENSION. ADDITIONAL FINDINGS: OMENTUM COMPOSED OF UNREMARKABLE ADIPOSE TISSUE. APPENDIX WITH DISTAL LUMINAL OBLITERATION. PATHOLOGIC STAGE: pT3 pN2b pMX. LIVER BIOPSY FROM 02/17: BLOOD AND BENIGN HEPATOCYTES. NO MALIGNANT CELLS SEEN. CURRENT THERAPY: 1. He underwent a right hemicolectomy on January 26. Started out with a laparoscopic procedure but then had to be opened. 2. FOLFOX & Avastin Chemotherapy, S/P 6 cycles, completed 09/15/17. 3. S/P Radiofrequency Ablation, 05/[address] Vázquez. 4. S/P Y-90 Microspheres, administration , by Dr. Vázquez. 5. Planned another Y 90 radio-embolization treatment on August 29. Underwent mapping on August 08. 6. Completed SBRT on the left upper lobe pulmonary nodule. Interval History Interval history: This is a pleasant 80 year-old gentleman here for a follow-up visit. He has been doing extremely well. He denies any complaints. He denies any fever nor chills. He has good energy level. He denies headache no dizziness. No chest pain or trouble breathing. He denies abdominal pain nausea vomiting heartburn indigestion. Bowels are working without any gross blood in it. Enjoys a good appetite. He has gained weight. Only time he gets tired is when he is climbing stairs or exercising on the [employer], or while doing [place] work. He is in good spirits. Rest of the review of systems is unremarkable. He got the COVID vaccine, pfizer. Second dose on 01/26. Previous history: He received the SBRT in June,. He tolerated it well. Review of Systems - Constitutional Reports no additional constitutional complaints - Eyes Reports no additional eye complaints - ENT Reports no additional ear, nose, mouth, and throat complaints - Cardiovascular Reports no additional cardiovascular complaints - Respiratory Reports no additional respiratory complaints - Gastrointestinal Reports no additional gastrointestinal complaints - Genitourinary Genitourinary: Reports no additional male genitourinary complaints - Musculoskeletal Reports no additional musculoskeletal complaints - Integumentary/Breasts Skin/Breast: Reports no additional skin complaints - Neurologic Reports no additional neurologic complaints - Psychiatric Reports no additional psychiatric complaints - Endocrine Reports no additional endocrine complaints - Hematologic/Lymphatic Reports no additional hematologic/lymphatic complaints - Allergic/Immunologic Reports no additional allergic/immunologic complaints [facility] Medical History: Medical History (Last Reviewed 01/15/21 @ 08:34 by Juan Henning MD) Anticoagulated on warfarin Chronic GERD Colon cancer Diabetes 1.5, managed as type 2 Difficulty walking Hypertension, essential Liver lesion Lung nodule Functional capacity: independent ambulation Patient : No Family History: Family History (Last Reviewed 01/15/21 @ 08:34 by Juan Henning MD) Father HTN (hypertension) Mother Hyperlipidemia Maternal Grandfather No problems noted. Maternal Grandmother No problems noted. Paternal Grandfather No problems noted. Paternal Grandmother No problems noted. Surgical History: Surgical History (Last Reviewed 01/15/21 @ 08:34 by Juan Henning MD) History of wisdom tooth extraction Social History: Social History (Last Reviewed 01/15/21 @ 08:34 by Juan Henning MD) Alcohol History: Alcohol intake: current Alcohol History Details: Alcohol intake frequency: holiday/special occasion Substance Use History: Use of substances other than those prescribed or required for medical reasons : No Advance Directives: Advance Directives: No Advance Directives Information Provided: No Nutrition Assessment: Patient : No Home Medications and Allergies Home Medications Medication Instructions Recorded Confirmed Type omeprazole 20 mg capsule,delayed 20 mg PO DAILY 10/16/20 01/31/21 History release centrum multivitamin PO 01/24/21 01/31/21 History Allergies Allergy/AdvReac Type Severity Reaction Status Date / Time No Known Allergies Allergy Verified 02/14/21 09:03 [No Known Allergies*] Exam Vital signs: Vital Signs Temp 97.5 F 01/07/21 10:36 Pulse 76 01/07/21 10:36 Resp 12 01/07/21 10:36 BP 152/80 H 01/07/21 10:36 Pulse Ox 96 01/07/21 10:36 Weight 98.3 kg Body Mass Index 32.9 - Constitutional Present: no acute distress - Routine HEENT Exam Head: Present: normal inspection Eye: Present: normal appearance ENT: Present: mucous membranes moist - Routine Neck Exam Present: full ROM - Routine Respiratory Exam Present: CTAB - Routine Cardiovascular Exam Cardiovascular: Present: RRR, S1, S2 - Routine Abdominal Exam Present: soft, nontender - Routine Extremities Exam Present: nontender - Routine Back/Spine/Pelvis Exam Back/Spine: Present: full ROM - Routine Skin Exam Present: intact - Routine Neurological Exam Present: alert, oriented X3 - Detailed Neurological Exam: Coma Scale Eye Opening: Spontaneous (4) - Routine Psychiatric Exam Present: normal affect Data - Labs CBC & Chem 7: 02/20/21 10:34 02/20/21 10:34 Labs: 06/27/20 09:39 Heparin Sodium,Porcine Flush 500 unit 0.9 % Sodium Chloride Flush [NS Flush] 5 ml IVFLUSH ONCE 06/27/20 09:44 Heparin Sodium,Porcine Flush 500 unit IVFLUSH .STK-MED ONE 06/27/20 09:55 CEA [Carcinoembryonic Antigen] Routine Complete Blood Count Auto Diff Routine Comprehensive Met. Panel Routine 08/08/20 09:04 Heparin Sodium,Porcine Flush 500 unit 0.9 % Sodium Chloride Flush [NS Flush] 5 ml IVFLUSH ONCE 08/26/20 08:10 Heparin Sodium,Porcine Flush 500 unit 0.9 % Sodium Chloride Flush [NS Flush] 5 ml IVFLUSH ONCE 08/26/20 10:40 Heparin Sodium,Porcine Flush 500 unit IVFLUSH .STK-MED ONE 08/26/20 10:46 Flu Vacc [id number](6mos up)/PF [Fluarix Quad ] 0.5 ml IM .ONCE ONE 08/26/20 10:53 CEA [Carcinoembryonic Antigen] Routine Complete Blood Count Auto Diff Routine Comprehensive Met. Panel Routine 10/24/20 11:00 Complete Blood Count Auto Diff Routine 10/24/20 11:17 Heparin Sodium,Porcine Flush 500 unit 0.9 % Sodium Chloride Flush [NS Flush] 5 ml IVFLUSH ONCE Laboratory Last Values WBC 4.8 X10*3/uL (4.8-10.8) 10/24/20 11:00 RBC 4.44 X10*6/uL (4.60-5.80) L 10/24/20 11:00 Hgb 13.7 g/dl (14.0-18.0) L 10/24/20 11:00 Hct 41.5 % (42-52) L 10/24/20 11:00 MCV 93.5 fL (80-98) 10/24/20 11:00 MCH 30.9 pg (27.0-33.0) 10/24/20 11:00 MCHC 33.0 g/dl (31.0-36.0) 10/24/20 11:00 RDW 13.6 % (11.0-16.0) 10/24/20 11:00 Plt Count 141 X10*3/uL (160-400) L 10/24/20 11:00 MPV 9.7 fL (9.4-12.4) 10/24/20 11:00 Immature Gran % (Auto) 0.4 % (0.0-0.4) 10/24/20 11:00 Neut % (Auto) 42.5 % (45-73) L 10/24/20 11:00 Lymph % (Auto) 36.6 % (20-40) 10/24/20 11:00 [place] % (Auto) 15.9 % (2-11) H 10/24/20 11:00 Eos % (Auto) 4.0 % (0-4) 10/24/20 11:00 Baso % (Auto) 0.6 % (0-2) 10/24/20 11:00 Lymph # (Auto) 1.8 X10*3/uL (1.2-4.9) 10/24/20 11:00 [place] # (Auto) 0.8 X10*3/uL (0.1-1.2) 10/24/20 11:00 Eos # (Auto) 0.2 X10*3/uL (0.0-0.4) 10/24/20 11:00 Baso # (Auto) 0.0 X10*3/uL (0.0-0.2) 10/24/20 11:00 Abs Immat Gran (auto) 0.02 X10*3/uL (0.00-0.03) 10/24/20 11:00 Absolute Neuts (auto) 2.0 X10*3/uL (2.0-8.3) 10/24/20 11:00 Absolute Nucleated RBC 0.000 X10*3/uL (0.0-0.012) 10/24/20 11:00 Nucleated RBC % (auto) 0.0 /100WBC (0.0-0.2) 10/24/20 11:00 Sodium 137 mmol/L (135-145) 08/26/20 10:53 Potassium 4.1 mmol/l (3.3-5.1) 08/26/20 10:53 Chloride 103 mmol/L (96-108) 08/26/20 10:53 Carbon Dioxide 28 mmol/L (22-29) 08/26/20 10:53 Anion Gap 10 (12-20) L 08/26/20 10:53 BUN 15 mg/dL (9-16) 08/26/20 10:53 Creatinine 0.89 mg/dL (0.5-1.4) 08/26/20 10:53 Estim Creat Clear Calc 77.1 08/26/20 10:53 Estimated GFR > 60 08/26/20 10:53 Random Glucose 110 mg/dL (60-115) 08/26/20 10:53 Calcium 8.3 mg/dL (8.4-10.2) L 08/26/20 10:53 Total Bilirubin 0.5 mg/dL (0.0-1.0) 08/26/20 10:53 AST 31 U/L (5-37) 08/26/20 10:53 ALT 25 U/L (0-40) 08/26/20 10:53 Alkaline Phosphatase 75 U/L (39-117) 08/26/20 10:53 Total Protein 7.6 g/dL (6.5-8.0) 08/26/20 10:53 Albumin 3.7 g/dL (3.5-5.0) 08/26/20 10:53 Carcinoembryonic Ag 135.00 mg/mL D 08/26/20 10:53 Progress Note: A/P (1) Metastatic colon cancer to liver Status: Acute Assessment and plan: This is a pleasant 79 year-old male with metastatic Colon Cancer, completed 6 cycles of chemotherapy, September 15, 2017. He has been regaining his appetite and strength slowly. His CEA level was up at 14.4. on December 03 2017. He had a Cat Scan of abdomen on 12/15/17 which revealed: Abdomen and pelvis: Question slight interval increase in size in liver lesions. No new liver lesion seen. Fatty liver. Postsurgical changes from right hemicolectomy. Enlarged prostate gland that protrudes into the base of the bladder. Probable mild diffuse bladder wall thickening. Bilateral inguinal hernias containing fat, right greater than left. Bilateral renal cysts. Stable right adrenal nodule. I referred him to Dr. Case Vázquez, for consideration of radiofrequency embolization therapy. The patient actually underwent the radiofrequency ablation procedure May [address] Vázquez. He did well. It appears that the procedure was successful. June 29, 2018 he had an MRI of the abdomen which revealed: There are 2 metastatic lesions identified within the liver, corresponding with the appearance on prior PET/CT. These lesions demonstrate heterogeneous internal signal, without significant enhancement of the lesions themselves. Mild arterial enhancement in the surrounding hepatic parenchyma, which fades. No new hepatic lesions are identified. Multiple bilateral renal cysts. Exophytic right midpole renal lesion may represent a hemorrhagic or proteinaceous cyst. He just had a PET scan done on March 02 which revealed: 1. There has been a complete metabolic response to therapy of FDG avid no other lesions noted on prior studies. 2. There has been a complete metabolic response of an FDG avid right adrenal nodule. 3. A new 0.5 cm solid left apical pulmonary nodule is present. This is suspicious for a metastasis, but is too small to be characterized on the FDG PET images. Better characterization of the lungs fourth an IV contrast enhanced diagnostic chest CT scan is recommended. 4. No additional abnormalities suspicious for other metastatic or malignant lesions are noted. He has had the pretreatment mapping done on. This was followed by Y- 90 therapy on August 29. MRI of the abdomen from October 30 done at [facility] revealed: Posterior right hepatic Y 90 radioembolization with expected post treatment effect and no residual tumor enhancement within the segment 7 lesion. Ablations cavity in segment 4 a has decreased in size, with some central hypoenhancement. No convincing evidence for residual or recurrent disease. He had a PET scan at [facility] on April 22, which revealed: Persistent peripheral metabolic activity involving the segment 7 metastasis of the right hepatic lobe compatible with persistent disease. Increase in size of the left upper lobe lung nodule, now measuring 15 mm in maximum dimension. New mildly FDG avid right lower lobe lung nodule. These are highly concerning for sites of metastatic disease. This was done on May 17 at [facility], by IR. Pathology revealed: Adenocarcinoma, metastatic, consistent with colonic primary tumor. Min a chemicals studies revealed: SATB 2: Positive in tumor cells. TTS 1: NEGATIVE. CK 20: Positive in tumor cells. CK7: Negative in tumor cells. Since he had declined chemotherapy and again is not interested in receiving that. He was referred for SBRT. He actually completed stereotactic radiosurgery treatment of a left upper lobe lung nodule, to a total dose of 5000 cGY from June 26 to July 05 2020. He had repeat imaging on 09/30/20. This revealed: Post treatment changes in segment 7 of the liver with some increased nodular components both superiorly and inferiorly that appear more pronounced than on the prior MRI imaging from May. More superior area of lobulated hypoenhancement just posterior to the posterior branch of the right portal vein that appeared contiguous with some new thickening in the right adrenal gland. This could represent progression of malignancy as well. The untreated lesion in the right lower lobe of the lung appears minimally changed. He had repeat CT chest on 10/08: Showed multiple new and growing nodules in the right lung. Specifically a metastatic lesion in the right lower lobe measured almost 3 cm as well as a new nodule adjacent to the right hilum. There were also 17 and 10 mm nodule in the upper lobe. The treated lesion in the left upper lobe was slightly smaller. He had a tele visit scheduled with Noel on 10/04. In light of diffuse nature of the progression Dr. Cohen did not feel that further localized therapy would be appropriate. I brought up the option for systemic chemotherapy with him, today. However he is adamantly refusing it, at this point. He said he noted too many side effects, when he had it in the past. Dr. Cohen is deferring treatment of any liver lesions, to Dr. Vázquez, in view of the fact that there are pellets in there. I checked with Dr. Vázquez, to see if that remains an option, since he absolutely does not want any systemic treatment. He saw Dr. Vázquez, about a month ago. At that time he was willing to proceed with systemic chemotherapy. His CEA level from 11/25 was 308. 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 I was planning to treat him with FOLFIRI. However right now he declines it. He is trying some alternative treatment with turmeric, black pepper on wheat bread. l proceeded with reimaging, to establish a baseline. This was done on 01/22 and revealed: CHEST: There is overall interval increase in pulmonary nodules with new nodules in the right upper lobe and new and increasing nodules in the right lower lobe. The left upper lobe nodule appears smaller and decreased in density with a new larger area of surrounding ground-glass attenuation, question representing post local treatment changes. There is increasing right internal thoracic/internal mammary and anterior cardiophrenic angle/diaphragmatic lymphadenopathy. ABDOMEN AND PELVIS: Interval increase in size and number of liver lesions. Increasing right adrenal mass. This is difficult to separate from the adjacent liver lesions. New small amount of thrombus seen in the main portal vein. Question new peritoneal disease. His CEA level is also at 563, from 411 in December. I discussed the findings with him including the fact that if we have to proceed with chemotherapy then we have a window of opportunity now before it is too late. He said he dreads the way he felt while he was getting the chemotherapy last time. He had quite a few side effects. He said if the chemotherapy was 2 by him 5-10 years he would consider it but not for a couple of years prolongation in life, he would not trait his quality for quantity. He said he will discuss it with his family and let me know if he wishes to proceed. PLAN: If he decides to pursue systemic treatment I would treat him with FOLFIRI. He will return here in 6 weeks for port flush and a followup visit. However will set him up for chemotherapy if he decides to proceed with it. He and his daughter will keep me posted, about any symptoms he may developed in the interim. Thank you, CC: Dr. Juan Henning. Dr. Couch. Dr. Jostin Villa. Dr. Vázquez. Dr. Cohen. - Time Spent With Patient Total time spent is greater than 50% in coordination of care (as documented) at patient's floor/unit and/or counseling patient: 25 - 35 minutes
[2021-02-20 09:58] VITALS: BP 151/73; PULSE 78; RESP 18; TEMP 36.4; O2SAT 98; BMI 32.8
[2021-02-20 10:38] LABS: MANUAL DIFF FLAG NO
[2021-02-20 10:45] LABS: Basophils Percent Auto 0.6 % (0-2); Eosinophils Absolute Auto 0.2 X10*3/uL (0.0-0.4); Eosinophils Percent Auto 4.3 % (0-4); Hematocrit 37.6 % (42-52); Hemoglobin 12.3 g/dl (14.0-18.0); Imm Gran Abs Auto 0.01 X10*3/uL (0.00-0.03); Imm Gran Pct Auto 0.2 % (0.0-0.4); Lymphocytes Absolute Auto 1.6 X10*3/uL (1.2-4.9); Lymphocytes Percent Auto 30.2 % (20-40); Mean Corpuscular HGB Conc 32.7 g/dl (31.0-36.0); Mean Corpuscular Hemoglobin 30.9 pg (27.0-33.0); Mean Corpuscular Volume 94.5 fL (80-98); Mean Platelet Volume 9.3 fL (9.4-12.4); Monocytes Absolute Auto 0.8 X10*3/uL (0.1-1.2); Monocytes Percent Auto 14.5 % (2-11); Neutrophils Absolute Auto 2.6 X10*3/uL (2.0-8.3); Neutrophils Percent Auto 50.2 % (45-73); Platelet Count 132 X10*3/uL (160-400); Red Blood Count 3.98 X10*6/uL (4.60-5.80); Red Cell Distribution Width 13.2 % (11.0-16.0); White Blood Count 5.2 X10*3/uL (4.8-10.8)
[2021-02-20 11:27] LABS: Alanine Aminotransferase 28 U/L (0-40); Albumin Level 3.7 g/dL (3.5-5.0); Alkaline Phosphatase 91 U/L (39-117); Anion Gap 11 (12-20); Aspartate Amino Transferase 32 U/L (5-37); Bilirubin Total 0.7 mg/dL (0.0-1.0); Blood Urea Nitrogen 20 mg/dL (9-16); Calcium 8.9 mg/dL (8.4-10.2); Carbon Dioxide 29 mmol/L (22-29); Chloride 102 mmol/L (96-108); Creatinine Clr Calc Pharmacy 66.5; Estimated Glomerular Filt Rate > 60; Glucose Random 92 mg/dL (60-115); Potassium 4.4 mmol/L (3.3-5.1); Sodium 138 mmol/L (135-145)
--- NOTE | 2021-03-21 10:42 | MHC.HEMONCMA ---
Patient scheduled for bilateral U/S to R/O DVT 03/21/2021 at 3pm.
[2021-04-03 09:34] VITALS: BP 139/67; PULSE 89; RESP 18; TEMP 36.8; O2SAT 96
--- NOTE | 2021-04-03 10:05 | P.PNHO_ITS ---
Medical Summary - Medical Summary Date of Service: 04/03/21 Chief complaint: Follow-up for: 1. Colon cancer. 2. Brain metastases. Medical Summary: DIAGNOSIS: Colon Carcinoma, with Liver mets. CURRENT THERAPY: He underwent a right hemicolectomy on January 26. Started out with a laparoscopic procedure but then had to be opened. Pathology revealed: INVASIVE MODERATELY TO POORLY DIFFERENTIATED ADENOCARCINOMA. TUMOR SITE: CECUM. TUMOR SIZE: 4 X 3 CM. TUMOR PERFORATION: NOT IDENTIFIED. MICROSCOPIC TUMOR EXTENSION: THE TUMOR INVADES THROUGH THE MUSCULARIS PROPRIA AND INTO THE PERICOLIC ADIPOSE TISSUES. MARGINS: THE TUMOR IS 0.3 CM. FROM THE CLOSEST CIRCUMFERENTIAL MARGIN. THE TUMOR IS APPROXIMATELY 11.5 CM. FROM THE PROXIMAL MARGIN AND 12 CM. FROM THE DISTAL RESECTION MARGIN. LYMPH-VASCULAR INVASION: POSSIBLE LYMPHOVASCULAR INVASION IDENTIFIED. PERINEURAL INVASION: IDENTIFIED. TUMOR DEPOSITS: IDENTIFIED. REGIONAL LYMPH NODES: NUMBER EXAMINED: 29. NUMBER POSITIVE: 8. THE LARGEST METASTATIC FOCUS MEASURES 1.2 CM. IN GREATEST DIMENSION WITH NEAR COMPLETE LYMPH NODE REPLACEMENT AND EXTRACAPSULAR EXTENSION. ADDITIONAL FINDINGS: OMENTUM COMPOSED OF UNREMARKABLE ADIPOSE TISSUE. APPENDIX WITH DISTAL LUMINAL OBLITERATION. PATHOLOGIC STAGE: pT3 pN2b pMX. LIVER BIOPSY FROM 02/17: BLOOD AND BENIGN HEPATOCYTES. NO MALIGNANT CELLS SEEN. CURRENT THERAPY: 1. He underwent a right hemicolectomy on January 26. Started out with a laparoscopic procedure but then had to be opened. 2. FOLFOX & Avastin Chemotherapy, S/P 6 cycles, completed 09/15/17. 3. S/P Radiofrequency Ablation, 05/[address] Vázquez. 4. S/P Y-90 Microspheres, administration , by Dr. Vázquez. 5. Planned another Y 90 radio-embolization treatment on August 29. Underwent mapping on August 08. 6. Completed SBRT on the left upper lobe pulmonary nodule. Interval History Interval history: This is a pleasant 80 year-old gentleman here for a follow-up visit. He has not been doing well. He has had some memory loss and imbalance. He went to the ER yesterday. Narrative:80-year-old man was sent here from his PCPs office today for a brain and Spine scan as there is concern for Mets to those areas. His daughter states the patient has had a decline in his energy level, his food intake, has become incontinent of urine and is unable to dress himself as of the last few weeks. She states the patient is also off balance, she says he is complaining of feeling like he is ?floating ?. He has been using a cane around the house but he is not very good with that and they are concerned he is going to fall, he walks while holding furniture, from item to item. CT scan of the head revealed: 1. There are multiple metastatic lesions in the brain bilaterally with significant surrounding vasogenic edema. 2. No CT evidence of acute cervical spine fracture or traumatic subluxation X-rays of thoracolumbar spine: Impression: Chronic appearing and degenerative changes in the spine. I do not appreciate any definitive acute bony destructive lesions on these plain films. If there is persistent concern, cross-sectional imaging would be more sensitive. He has not been doing well. Daughter mentions memory loss and intermittent confusion. His gait has been imbalanced. He feels dizzy. Not able to walk properly. He has to hold onto furniture to move around. On March 17 he fell down. Daughter also noted that his right eye appears to be more protruding and sometimes pulsating. He denies any fever nor chills. His energy level has declined. He denies headache no dizziness. No chest pain or trouble breathing. He denies abdominal pain, nausea vomiting heartburn indigestion. Bowels are working without any gross blood in it. His appetite has declined. He has lost weight. He is in good spirits. Rest of the review of systems is unremarkable. Previous history: He received the SBRT in June,. He tolerated it well. He got the COVID vaccine, CANDDi. Second dose on 01/26. Review of Systems - Constitutional Reports fatigue, Reports frequent falls, Reports lack of energy, Reports malaise, Reports poor appetite, Reports weight loss, Denies fever(s), Denies headache(s) - Eyes Reports system reviewed and no additional complaints, except as documented, Reports bulging eyes Comments: Right eye is bulging and pulsatile. - ENT Reports system reviewed and no additional complaints, except as documented - Cardiovascular Reports system reviewed and no additional complaints, except as documented - Respiratory Reports no additional respiratory complaints - Gastrointestinal Reports system reviewed and no additional complaints, except as documented - Genitourinary Genitourinary: Reports no additional male genitourinary complaints, Reports urin chandu incontinence - Musculoskeletal Reports system reviewed and no additional complaints, except as documented - Integumentary/Breasts Skin/Breast: Reports no additional skin complaints - Neurologic Reports system reviewed and no additional complaints, except as documented, Reports abnormal gait, Reports dizziness, Reports frequent falls, Reports lack of coordination, Reports memory loss, Reports disequilibrium, Reports weakness - Psychiatric Reports system reviewed and no additional complaints, except as documented - Endocrine Reports no additional endocrine complaints - Hematologic/Lymphatic Reports system reviewed and no additional complaints, except as documented - Allergic/Immunologic Reports system reviewed and no additional complaints, except as documented PMFSH Medical History: Medical History (Last Reviewed 04/02/21 @ 16:45 by Mojgan Bowers PA-C) Anticoagulated on warfarin Chronic GERD Colon cancer Diabetes 1.5, managed as type 2 Difficulty walking Hypertension, essential Liver lesion Lung nodule Functional capacity: uses cane/walker Patient : No Family History: Family History (Last Reviewed 04/02/21 @ 16:45 by Mojgan Bowers PA-C) Father HTN (hypertension) Mother Hyperlipidemia Maternal Grandfather No problems noted. Maternal Grandmother Mental health disorder Paternal Grandfather No problems noted. Paternal Grandmother No problems noted. Surgical History: Surgical History (Last Reviewed 04/02/21 @ 16:45 by Mojgan Bowers PA-C) History of wisdom tooth extraction Social History: Social History (Last Reviewed 04/02/21 @ 16:45 by Mogjan Bowers PA-C) Alcohol History: Alcohol intake: never Alcohol History Details: Alcohol intake frequency: holiday/special occasion Tobacco History: Patient Tobacco Use Status: Never used Tobacco e-Cigarette/Vaping Use: Never Used Oncology Screenings - ECOG Performance Status ECOG Performance Status: 2 Home Medications and Allergies Home Medications Medication Instructions Recorded Confirmed Type centrum multivitamin PO 01/24/21 04/02/21 History glipizide 5 mg tablet 5 mg PO DAILY 04/02/21 04/02/21 History Allergies Allergy/AdvReac Type Severity Reaction Status Date / Time No Known Allergies Allergy Verified 04/02/21 15:10 [No Known Allergies*] Exam Vital signs: Vital Signs Temp 98.3 F 04/03/21 09:34 Pulse 89 04/03/21 09:34 Resp 18 04/03/21 09:34 BP 139/67 04/03/21 09:34 Pulse Ox 96 04/03/21 09:34 Weight 97.8 kg Body Mass Index 32.8 - Constitutional Present: no acute distress - Routine HEENT Exam Head: Present: normal inspection Eye: Present: normal appearance ENT: Present: mucous membranes moist - Routine Neck Exam Present: full ROM - Routine Respiratory Exam Present: CTAB - Routine Cardiovascular Exam Cardiovascular: Present: RRR, S1, S2 - Routine Abdominal Exam Present: soft, nontender - Routine Extremities Exam Present: nontender - Routine Back/Spine/Pelvis Exam Back/Spine: Present: full ROM - Routine Skin Exam Present: intact - Routine Neurological Exam Present: alert, oriented X3 - Detailed Neurological Exam: Coma Scale Eye Opening: Spontaneous (4) - Routine Psychiatric Exam Present: normal affect Data - Labs CBC & Chem 7: 04/03/21 09:55 04/03/21 09:55 Labs: 06/27/20 09:39 Heparin Sodium,Porcine Flush 500 unit 0.9 % Sodium Chloride Flush [NS Flush] 5 ml IVFLUSH ONCE 06/27/20 09:44 Heparin Sodium,Porcine Flush 500 unit IVFLUSH .STK-MED ONE 06/27/20 09:55 CEA [Carcinoembryonic Antigen] Routine Complete Blood Count Auto Diff Routine Comprehensive Met. Panel Routine 08/08/20 09:04 Heparin Sodium,Porcine Flush 500 unit 0.9 % Sodium Chloride Flush [NS Flush] 5 ml IVFLUSH ONCE 08/26/20 08:10 Heparin Sodium,Porcine Flush 500 unit 0.9 % Sodium Chloride Flush [NS Flush] 5 ml IVFLUSH ONCE 08/26/20 10:40 Heparin Sodium,Porcine Flush 500 unit IVFLUSH .STK-MED ONE 08/26/20 10:46 Flu Vacc [id number](6mos up)/PF [Fluarix Quad [id number]] 0.5 ml IM .ONCE ONE 08/26/20 10:53 CEA [Carcinoembryonic Antigen] Routine Complete Blood Count Auto Diff Routine Comprehensive Met. Panel Routine 10/24/20 11:00 Complete Blood Count Auto Diff Routine 10/24/20 11:17 Heparin Sodium,Porcine Flush 500 unit 0.9 % Sodium Chloride Flush [NS Flush] 5 ml IVFLUSH ONCE Laboratory Last Values WBC 4.8 X10*3/uL (4.8-10.8) 10/24/20 11:00 RBC 4.44 X10*6/uL (4.60-5.80) L 10/24/20 11:00 Hgb 13.7 g/dl (14.0-18.0) L 10/24/20 11:00 Hct 41.5 % (42-52) L 10/24/20 11:00 MCV 93.5 fL (80-98) 10/24/20 11:00 MCH 30.9 pg (27.0-33.0) 10/24/20 11:00 MCHC 33.0 g/dl (31.0-36.0) 10/24/20 11:00 RDW 13.6 % (11.0-16.0) 10/24/20 11:00 Plt Count 141 X10*3/uL (160-400) L 10/24/20 11:00 MPV 9.7 fL (9.4-12.4) 10/24/20 11:00 Immature Gran % (Auto) 0.4 % (0.0-0.4) 10/24/20 11:00 Neut % (Auto) 42.5 % (45-73) L 10/24/20 11:00 Lymph % (Auto) 36.6 % (20-40) 10/24/20 11:00 [place] % (Auto) 15.9 % (2-11) H 10/24/20 11:00 Eos % (Auto) 4.0 % (0-4) 10/24/20 11:00 Baso % (Auto) 0.6 % (0-2) 10/24/20 11:00 Lymph # (Auto) 1.8 X10*3/uL (1.2-4.9) 10/24/20 11:00 [place] # (Auto) 0.8 X10*3/uL (0.1-1.2) 10/24/20 11:00 Eos # (Auto) 0.2 X10*3/uL (0.0-0.4) 10/24/20 11:00 Baso # (Auto) 0.0 X10*3/uL (0.0-0.2) 10/24/20 11:00 Abs Immat Gran (auto) 0.02 X10*3/uL (0.00-0.03) 10/24/20 11:00 Absolute Neuts (auto) 2.0 X10*3/uL (2.0-8.3) 10/24/20 11:00 Absolute Nucleated RBC 0.000 X10*3/uL (0.0-0.012) 10/24/20 11:00 Nucleated RBC % (auto) 0.0 /100WBC (0.0-0.2) 10/24/20 11:00 Sodium 137 mmol/L (135-145) 08/26/20 10:53 Potassium 4.1 mmol/l (3.3-5.1) 08/26/20 10:53 Chloride 103 mmol/L (96-108) 08/26/20 10:53 Carbon Dioxide 28 mmol/L (22-29) 08/26/20 10:53 Anion Gap 10 (12-20) L 08/26/20 10:53 BUN 15 mg/dL (9-16) 08/26/20 10:53 Creatinine 0.89 mg/dL (0.5-1.4) 08/26/20 10:53 Estim Creat Clear Calc 77.1 08/26/20 10:53 Estimated GFR > 60 08/26/20 10:53 Random Glucose 110 mg/dL (60-115) 08/26/20 10:53 Calcium 8.3 mg/dL (8.4-10.2) L 08/26/20 10:53 Total Bilirubin 0.5 mg/dL (0.0-1.0) 08/26/20 10:53 AST 31 U/L (5-37) 08/26/20 10:53 ALT 25 U/L (0-40) 08/26/20 10:53 Alkaline Phosphatase 75 U/L (39-117) 08/26/20 10:53 Total Protein 7.6 g/dL (6.5-8.0) 08/26/20 10:53 Albumin 3.7 g/dL (3.5-5.0) 08/26/20 10:53 Carcinoembryonic Ag 135.00 mg/mL D 08/26/20 10:53 Progress Note: A/P (1) Metastatic colon cancer to liver Status: Acute Assessment and plan: This is a pleasant 79 year-old male with metastatic Colon Cancer, completed 6 cycles of chemotherapy, September 15, 2017. He has been regaining his appetite and strength slowly. His CEA level was up at 14.4. on December 03 2017. He had a Cat Scan of abdomen on 12/15/17 which revealed: Abdomen and pelvis: Question slight interval increase in size in liver lesions. No new liver lesion seen. Fatty liver. Postsurgical changes from right hemicolectomy. Enlarged prostate gland that protrudes into the base of the bladder. Probable mild diffuse bladder wall thickening. Bilateral inguinal hernias containing fat, right greater than left. Bilateral renal cysts. Stable right adrenal nodule. I referred him to Dr. Case Vázquez, for consideration of radiofrequency embolization therapy. The patient actually underwent the radiofrequency ablation procedure May [address] Vázquez. He did well. It appears that the procedure was successful. June 29, 2018 he had an MRI of the abdomen which revealed: There are 2 metastatic lesions identified within the liver, corresponding with the appearance on prior PET/CT. These lesions demonstrate heterogeneous internal signal, without significant enhancement of the lesions themselves. Mild arterial enhancement in the surrounding hepatic parenchyma, which fades. No new hepatic lesions are identified. Multiple bilateral renal cysts. Exophytic right midpole renal lesion may represent a hemorrhagic or proteinaceous cyst. He just had a PET scan done on March 02 which revealed: 1. There has been a complete metabolic response to therapy of FDG avid no other lesions noted on prior studies. 2. There has been a complete metabolic response of an FDG avid right adrenal nodule. 3. A new 0.5 cm solid left apical pulmonary nodule is present. This is s uspicious for a metastasis, but is too small to be characterized on the FDG PET images. Better characterization of the lungs fourth an IV contrast enhanced diagnostic chest CT scan is recommended. 4. No additional abnormalities suspicious for other metastatic or malignant lesions are noted. He has had the pretreatment mapping done on. This was followed by Y- 90 therapy on August 29. MRI of the abdomen from October 30 done at [facility] revealed: Posterior right hepatic Y 90 radioembolization with expected post treatment effect and no residual tumor enhancement within the segment 7 lesion. Ablations cavity in segment 4 a has decreased in size, with some central hypoenhancement. No convincing evidence for residual or recurrent disease. He had a PET scan at [facility] on April 22, which revealed: Persistent peripheral metabolic activity involving the segment 7 metastasis of the right hepatic lobe compatible with persistent disease. Increase in size of the left upper lobe lung nodule, now measuring 15 mm in maximum dimension. New mildly FDG avid right lower lobe lung nodule. These are highly concerning for sites of metastatic disease. This was done on May 17 at [facility], by IR. Pathology revealed: Adenocarcinoma, metastatic, consistent with colonic primary tumor. Min a chemicals studies revealed: SATB 2: Positive in tumor cells. TTS 1: NEGATIVE. CK 20: Positive in tumor cells. CK7: Negative in tumor cells. Since he had declined chemotherapy and again is not interested in receiving that. He was referred for SBRT. He actually completed stereotactic radiosurgery treatment of a left upper lobe lung nodule, to a total dose of 5000 cGY from June 26 to July 05 2020. He had repeat imaging on 09/30/20. This revealed: Post treatment changes in segment 7 of the liver with some increased nodular components both superiorly and inferiorly that appear more pronounced than on the prior MRI imaging from May. More superior area of lobulated hypoenhancement just posterior to the posterior branch of the right portal vein that appeared contiguous with some new thickening in the right adrenal gland. This could represent progression of malignancy as well. The untreated lesion in the right lower lobe of the lung appears minimally changed. He had repeat CT chest on 10/08: Showed multiple new and growing nodules in the right lung. Specifically a metastatic lesion in the right lower lobe measured almost 3 cm as well as a new nodule adjacent to the right hilum. There were also 17 and 10 mm nodule in the upper lobe. The treated lesion in the left upper lobe was slightly smaller. He had a tele visit scheduled with Noel on 10/04. In light of diffuse nature of the progression Dr. Cohen did not feel that further localized therapy would be appropriate. I brought up the option for systemic chemotherapy with him, today. However he is adamantly refusing it, at this point. He said he noted too many side effects, when he had it in the past. Dr. Cohen is deferring treatment of any liver lesions, to Dr. Vázquez, in view of the fact that there are pellets in there. I checked with Dr. Vázquez, to see if that remains an option, since he absolutely does not want any systemic treatment. He saw Dr. Vázquez, about a month ago. At that time he was willing to proceed with systemic chemotherapy. His CEA level from 11/25 was 308. 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 I was planning to treat him with FOLFIRI. However right now he declines it. He is trying some alternative treatment with turmeric, black pepper on wheat bread. l proceeded with reimaging, to establish a baseline. This was done on 01/22 and revealed: CHEST: There is overall interval increase in pulmonary nodules with new nodules in the right upper lobe and new and increasing nodules in the right lower lobe. The left upper lobe nodule appears smaller and decreased in density with a new larger area of surrounding ground-glass attenuation, question representing post local treatment changes. There is increasing right internal thoracic/internal mammary and anterior cardiophrenic angle/diaphragmatic lymphadenopathy. ABDOMEN AND PELVIS: Interval increase in size and number of liver lesions. Increasing right adrenal mass. This is difficult to separate from the adjacent liver lesions. New small amount of thrombus seen in the main portal vein. Question new peritoneal disease. His CEA level is also at 563, from 411 in December. I discussed the findings with him including the fact that if we have to proceed with chemotherapy then we have a window of opportunity now before it is too late. He said he dreads the way he felt while he was getting the chemotherapy last time. He had quite a few side effects. He said if the chemotherapy was 2 by him 5-10 years he would consider it but not for a couple of years prolongation in life, he would not trait his quality for quantity. He said he will discuss it with his family and let me know if he wishes to proceed. If he decides to pursue systemic treatment I would treat him with FOLFIRI. He has not been well lately. He has had some memory impairment dizziness and unsteadiness. He had a fall at home. He was brought into the ER yesterday. CT scan of the head revealed: 1. There are multiple metastatic lesions in the brain bilaterally with significant surrounding vasogenic edema. 2. No CT evidence of acute cervical spine fracture or traumatic subluxation X-rays of thoracolumbar spine: Impression: Chronic appearing and degenerative changes in the spine. I do not appreciate any definitive acute bony destructive lesions on these plain films. If there is persistent concern, cross-sectional imaging would be more sensitive. MRI of the brain: There are bilateral cerebral metastases, largest within the right posterior parietal lobe measuring 3.5 x 2.9 x 2.1 cm. An additional metastatic lesion is present within the posteromedial left temporal lobe measuring 2.5 cm. Smaller metastatic lesion present within the left frontal lobe subjacent to the middle frontal gyrus measures 1.3 cm. There is a 0.9 cm lesion within the anterior left temporal lobe. These lesions all demonstrate heterogeneous peripherally predominant enhancement, with corresponding restricted diffusion. Prominent susceptibility artifact present throughout the left medial temporal lobe lesion reflective of petechial hemorrhage. There is associated punctate susceptibility artifact within the left frontal lesion, and adjacent to the right posterior parietal lesion. These lesions are associated with prominent surrounding confluent T2 prolongation most compatible with vasogenic edema. There is associated local regional mass effect resulting in partial effacement of the right lateral ventricular atrium. No herniation pattern evident. No extra-axial collection. PLAN: I discussed the case with Dr. Bola Cohen. He will see him in the morning and start radiation therapy, urgently. He will see if he is a candidate for SBRT. In the meantime, he will be started on Decadron. I gave him the 1st dose: 12 mg, here today. He will take 4 mg q.8 hours at home. He was advised to take the Prilosec regularly while on the Decadron. He will return here in 3 weeks for a followup visit. I will set him up for chemotherapy, if he decides to proceed with it. He and his daughter will keep me posted, about any symptoms he may developed in the interim. Thank you, CC: Dr. Juan Henning. Dr. Couch. Dr. Jostin Villa. Dr. Vázquez. Dr. Cohen. - Time Spent With Patient Time Spent with Patient (in minutes): 35
[2021-04-03 10:11] LABS: MANUAL DIFF FLAG NO
[2021-04-03 10:13] LABS: Basophils Percent Auto 0.5 % (0-2); Eosinophils Absolute Auto 0.1 X10*3/uL (0.0-0.4); Eosinophils Percent Auto 2.1 % (0-4); Hematocrit 33.4 % (42-52); Hemoglobin 10.9 g/dl (14.0-18.0); Imm Gran Abs Auto 0.01 X10*3/uL (0.00-0.03); Imm Gran Pct Auto 0.3 % (0.0-0.4); Lymphocytes Absolute Auto 0.9 X10*3/uL (1.2-4.9); Mean Corpuscular HGB Conc 32.6 g/dl (31.0-36.0); Mean Corpuscular Hemoglobin 30.6 pg (27.0-33.0); Mean Corpuscular Volume 93.8 fL (80-98); Mean Platelet Volume 9.5 fL (9.4-12.4); Monocytes Absolute Auto 0.5 X10*3/uL (0.1-1.2); Neutrophils Absolute Auto 2.3 X10*3/uL (2.0-8.3); Neutrophils Percent Auto 62.1 % (45-73); Platelet Count 114 X10*3/uL (160-400); Red Blood Count 3.56 X10*6/uL (4.60-5.80); Red Cell Distribution Width 13.1 % (11.0-16.0); White Blood Count 3.7 X10*3/uL (4.8-10.8)
[2021-04-03 10:51] LABS: Alanine Aminotransferase 24 U/L (0-40); Albumin Level 3.6 g/dL (3.5-5.0); Alkaline Phosphatase 103 U/L (39-117); Anion Gap 12 (12-20); Aspartate Amino Transferase 34 U/L (5-37); Bilirubin Total 0.8 mg/dL (0.0-1.0); Blood Urea Nitrogen 15 mg/dL (9-16); Calcium 9.3 mg/dL (8.4-10.2); Carbon Dioxide 27 mmol/L (22-29); Chloride 101 mmol/L (96-108); Creatinine Clr Calc Pharmacy 63.4; Estimated Glomerular Filt Rate > 60; Glucose Random 140 mg/dL (60-115); Potassium 3.8 mmol/L (3.3-5.1); Sodium 136 mmol/L (135-145); Total Protein 8.3 g/dL (6.5-8.0)
[2021-04-03] MEDS: dexAMETHasone sod phosphate/NS 12 MG/50 ML PIGGYBACK 200 MG IV (11:10)
--- NOTE | 2021-04-03 14:25 | MHC.HEMONC ---
Pt is here for follow up with Dr Marcelo and jersey foley. Daughter Binta is with pt. States he was recently in ED. She states his concentration is off, forgetful. She also states he has been incontinent at times. She states he had a CT scan which showed that he has metastasis to his brain. Pt denies any pain. Port accessed, good blood return noted. Labs drawn. Dr Marcelo in to see pt for exam. Appointment set up for pt to see Dr Cohen at [facility] 04/04 at 9:15am. Disc of CT scan given to daughter to bring to appointment. Pt given dexamethasone 12mg IV and port deaccessed. Prescription sent for prilosec and dexamethasone to be taken at home. Will follow up in 3 weeks.
[2021-04-25 11:27] VITALS: BP 129/61; PULSE 91; TEMP 36.2; O2SAT 98; BMI 33.0
--- NOTE | 2021-04-25 11:42 | PM.HEMONCPN ---
Medical Summary - Medical Summary Date of Service: 04/25/21 Chief complaint: Follow-up for 1. Colon cancer with brain Mets. Medical Summary: DIAGNOSIS: Colon Carcinoma, with Liver mets. CURRENT THERAPY: He underwent a right hemicolectomy on January 26. Started out with a laparoscopic procedure but then had to be opened. Pathology revealed: INVASIVE MODERATELY TO POORLY DIFFERENTIATED ADENOCARCINOMA. TUMOR SITE: CECUM. TUMOR SIZE: 4 X 3 CM. TUMOR PERFORATION: NOT IDENTIFIED. MICROSCOPIC TUMOR EXTENSION: THE TUMOR INVADES THROUGH THE MUSCULARIS PROPRIA AND INTO THE PERICOLIC ADIPOSE TISSUES. MARGINS: THE TUMOR IS 0.3 CM. FROM THE CLOSEST CIRCUMFERENTIAL MARGIN. THE TUMOR IS APPROXIMATELY 11.5 CM. FROM THE PROXIMAL MARGIN AND 12 CM. FROM THE DISTAL RESECTION MARGIN. LYMPH-VASCULAR INVASION: POSSIBLE LYMPHOVASCULAR INVASION IDENTIFIED. PERINEURAL INVASION: IDENTIFIED. TUMOR DEPOSITS: IDENTIFIED. REGIONAL LYMPH NODES: NUMBER EXAMINED: 29. NUMBER POSITIVE: 8. THE LARGEST METASTATIC FOCUS MEASURES 1.2 CM. IN GREATEST DIMENSION WITH NEAR COMPLETE LYMPH NODE REPLACEMENT AND EXTRACAPSULAR EXTENSION. ADDITIONAL FINDINGS: OMENTUM COMPOSED OF UNREMARKABLE ADIPOSE TISSUE. APPENDIX WITH DISTAL LUMINAL OBLITERATION. PATHOLOGIC STAGE: pT3 pN2b pMX. LIVER BIOPSY FROM 02/17: BLOOD AND BENIGN HEPATOCYTES. NO MALIGNANT CELLS SEEN. CURRENT THERAPY: 1. He underwent a right hemicolectomy on January 26. Started out with a laparoscopic procedure but then had to be opened. 2. FOLFOX & Avastin Chemotherapy, S/P 6 cycles, completed 09/15/17. 3. S/P Radiofrequency Ablation, 05/[address] Vázquez. 4. S/P Y-90 Microspheres, administration , by Dr. Vázquez. 5. Planned another Y 90 radio-embolization treatment on August 29. Underwent mapping on August 08. 6. Completed SBRT on the left upper lobe pulmonary nodule. 7. Received whole-brain radiation therapy, started 04/08 completed 04/21. Interval History Interval history: This is a pleasant 80 year-old gentleman here for an unscheduled visit. His daughter brought him on account of the fact that his feet have been swollen over the past few days. His energy level has declined, during the radiation. He sleeps early. He completed XRT to the brain on 04/21 under the care of Dr. Cohen. He has a follow-up appointment with him on 06/02. This will be followed up with imaging. He denies any pain or swelling of his the calf muscles. Denies chest pain or trouble breathing. He denies any fever nor chills. He denies headache no dizziness. No chest pain or trouble breathing. He denies abdominal pain, nausea vomiting heartburn indigestion. Bowels are working without any gross blood in it. His appetite is good. He has gained weight. He is in good spirits. Rest of the review of systems is unremarkable. Previous history: 1. He has not been doing well. He has had some memory loss and imbalance. He went to the ER yesterday. Narrative:80-year-old man was sent here from his PCPs office today for a brain and Spine scan as there is concern for Mets to those areas. His daughter states the patient has had a decline in his energy level, his food intake, has become incontinent of urine and is unable to dress himself as of the last few weeks. She states the patient is also off balance, she says he is complaining of feeling like he is ?floating ?. He has been using a cane around the house but he is not very good with that and they are concerned he is going to fall, he walks while holding furniture, from item to item. CT scan of the head revealed: 1. There are multiple metastatic lesions in the brain bilaterally with significant surrounding vasogenic edema. 2. No CT evidence of acute cervical spine fracture or traumatic subluxation X-rays of thoracolumbar spine: Impression: Chronic appearing and degenerative changes in the spine. I do not appreciate any definitive acute bony destructive lesions on these plain films. If there is persistent concern, cross-sectional imaging would be more sensitive. 2. He has not been doing well. Daughter mentions memory loss and intermittent confusion. His gait has been imbalanced. He feels dizzy. Not able to walk properly. He has to hold onto furniture to move around. On March 17 he fell down. Daughter also noted that his right eye appears to be more protruding and sometimes pulsating. 3. He received the SBRT in June,. He tolerated it well. 4. He got the COVID vaccine, [employer]. Second dose on 01/26. Review of Systems - Constitutional Reports system reviewed and no additional complaints, except as documented, Reports lack of energy, Reports malaise, Reports weight gain Comments: Bilateral edema of the feet. - Eyes Reports system reviewed and no additional complaints, except as documented - ENT Reports system reviewed and no additional complaints, except as documented - Cardiovascular Reports system reviewed and no additional complaints, except as documented - Respiratory Reports no additional respiratory complaints - Gastrointestinal Reports system reviewed and no additional complaints, except as documented - Genitourinary Genitourinary: Reports no additional male genitourinary complaints - Musculoskeletal Reports system reviewed and no additional complaints, except as documented - Integumentary/Breasts Skin/Breast: Reports no additional skin complaints - Neurologic Reports system reviewed and no additional complaints, except as documented, Reports abnormal gait, Reports dizziness, Reports frequent falls, Reports lack of coordination, Reports memory loss, Reports disequilibrium, Reports weakness, Denies headache(s) - Psychiatric Reports system reviewed and no additional complaints, except as documented - Endocrine Reports no additional endocrine complaints - Hematologic/Lymphatic Reports system reviewed and no additional complaints, except as documented - Allergic/Immunologic Reports system reviewed and no additional complaints, except as documented [facility] Medical History: Medical History (Last Reviewed 04/25/21 @ 11:30 by Iraj Ellison) Anticoagulated on warfarin Chronic GERD Colon cancer Diabetes 1.5, managed as type 2 Difficulty walking Hypertension, essential Liver lesion Lung nodule Functional capacity: wheelchair bound Patient : No Family History: Family History (Last Reviewed 04/25/21 @ 11:31 by Iraj Ellison) Father HTN (hypertension) Mother Hyperlipidemia Maternal Grandfather No problems noted. Maternal Grandmother Mental health disorder Paternal Grandfather No problems noted. Paternal Grandmother No problems noted. Social History: Social History (Last Reviewed 04/25/21 @ 11:31 by Iarj Ellison) Alcohol History: Alcohol intake: never Alcohol History Details: Alcohol intake frequency: holiday/special occasion Tobacco History: Patient Tobacco Use Status: Never used Tobacco e-Cigarette/Vaping Use: Never Used Oncology Screenings - ECOG Performance Status ECOG Performance Status: 2 Home Medications and Allergies Home Medications Medication Instructions Recorded Confirmed Type centrum multivitamin 500 mcg PO DAILY 01/24/21 04/25/21 History glipizide 5 mg tablet 5 mg PO DAILY 04/02/21 04/25/21 History Allergies Allergy/AdvReac Type Severity Reaction Status Date / Time No Known Allergies Allergy Verified 04/25/21 10:38 [No Known Allergies*] Exam Vital signs: Vital Signs Temp 97.2 F 04/25/21 11:27 Pulse 91 04/25/21 11:27 Resp 18 04/03/21 09:34 BP 129/61 04/25/21 11:27 Pulse Ox 98 04/25/21 11:27 Intake & Output 04/24/21 04/25/21 04/25/21 18:59 06:59 18:59 Other: Weight 98.5 kg Weight in Grams 30349 Weight 98.5 kg Body Mass Index 33.0 - Constitutional Present: no acute distress - Routine HEENT Exam Head: Present: normal inspection Eye: Present: normal appearance ENT: Present: mucous membranes moist - Routine Neck Exam Present: full ROM - Routine Respiratory Exam Present: CTAB - Routine Cardiovascular Exam Cardiovascular: Present: RRR, S1, S2 - Routine Abdominal Exam Present: soft, nontender - Routine Extremities Exam Present: nontender - Routine Back/Spine/Pelvis Exam Back/Spine: Present: full ROM - Routine Skin Exam Present: intact - Routine Neurological Exam Present: alert, oriented X3 - Detailed Neurological Exam: Coma Scale Eye Opening: Spontaneous (4) - Routine Psychiatric Exam Present: normal affect Data - Labs CBC & Chem 7: 04/25/21 12:30 04/25/21 12:30 Labs: 06/27/20 09:39 Heparin Sodium,Porcine Flush 500 unit 0.9 % Sodium Chloride Flush [NS Flush] 5 ml IVFLUSH ONCE 06/27/20 09:44 Heparin Sodium,Porcine Flush 500 unit IVFLUSH .STK-MED ONE 06/27/20 09:55 CEA [Carcinoembryonic Antigen] Routine Complete Blood Count Auto Diff Routine Comprehensive Met. Panel Routine 08/08/20 09:04 Heparin Sodium,Porcine Flush 500 unit 0.9 % Sodium Chloride Flush [NS Flush] 5 ml IVFLUSH ONCE 08/26/20 08:10 Heparin Sodium,Porcine Flush 500 unit 0.9 % Sodium Chloride Flush [NS Flush] 5 ml IVFLUSH ONCE 08/26/20 10:40 Heparin Sodium,Porcine Flush 500 unit IVFLUSH .STK-MED ONE 08/26/20 10:46 Flu Vacc [id number](6mos up)/PF [Fluarix Quad ] 0.5 ml IM .ONCE ONE 08/26/20 10:53 CEA [Carcinoembryonic Antigen] Routine Complete Blood Count Auto Diff Routine Comprehensive Met. Panel Routine 10/24/20 11:00 Complete Blood Count Auto Diff Routine 10/24/20 11:17 Heparin Sodium,Porcine Flush 500 unit 0.9 % Sodium Chloride Flush [NS Flush] 5 ml IVFLUSH ONCE Laboratory Last Values WBC 4.8 X10*3/uL (4.8-10.8) 10/24/20 11:00 RBC 4.44 X10*6/uL (4.60-5.80) L 10/24/20 11:00 Hgb 13.7 g/dl (14.0-18.0) L 10/24/20 11:00 Hct 41.5 % (42-52) L 10/24/20 11:00 MCV 93.5 fL (80-98) 10/24/20 11:00 MCH 30.9 pg (27.0-33.0) 10/24/20 11:00 MCHC 33.0 g/dl (31.0-36.0) 10/24/20 11:00 RDW 13.6 % (11.0-16.0) 10/24/20 11:00 Plt Count 141 X10*3/uL (160-400) L 10/24/20 11:00 MPV 9.7 fL (9.4-12.4) 10/24/20 11:00 Immature Gran % (Auto) 0.4 % (0.0-0.4) 10/24/20 11:00 Neut % (Auto) 42.5 % (45-73) L 10/24/20 11:00 Lymph % (Auto) 36.6 % (20-40) 10/24/20 11:00 Dunn % (Auto) 15.9 % (2-11) H 10/24/20 11:00 Eos % (Auto) 4.0 % (0-4) 10/24/20 11:00 Baso % (Auto) 0.6 % (0-2) 10/24/20 11:00 Lymph # (Auto) 1.8 X10*3/uL (1.2-4.9) 10/24/20 11:00 Dunn # (Auto) 0.8 X10*3/uL (0.1-1.2) 10/24/20 11:00 Eos # (Auto) 0.2 X10*3/uL (0.0-0.4) 10/24/20 11:00 Baso # (Auto) 0.0 X10*3/uL (0.0-0.2) 10/24/20 11:00 Abs Immat Gran (auto) 0.02 X10*3/uL (0.00-0.03) 10/24/20 11:00 Absolute Neuts (auto) 2.0 X10*3/uL (2.0-8.3) 10/24/20 11:00 Absolute Nucleated RBC 0.000 X10*3/uL (0.0-0.012) 10/24/20 11:00 Nucleated RBC % (auto) 0.0 /100WBC (0.0-0.2) 10/24/20 11:00 Sodium 137 mmol/L (135-145) 08/26/20 10:53 Potassium 4.1 mmol/l (3.3-5.1) 08/26/20 10:53 Chloride 103 mmol/L (96-108) 08/26/20 10:53 Carbon Dioxide 28 mmol/L (22-29) 08/26/20 10:53 Anion Gap 10 (12-20) L 08/26/20 10:53 BUN 15 mg/dL (9-16) 08/26/20 10:53 Creatinine 0.89 mg/dL (0.5-1.4) 08/26/20 10:53 Estim Creat Clear Calc 77.1 08/26/20 10:53 Estimated GFR > 60 08/26/20 10:53 Random Glucose 110 mg/dL (60-115) 08/26/20 10:53 Calcium 8.3 mg/dL (8.4-10.2) L 08/26/20 10:53 Total Bilirubin 0.5 mg/dL (0.0-1.0) 08/26/20 10:53 AST 31 U/L (5-37) 08/26/20 10:53 ALT 25 U/L (0-40) 08/26/20 10:53 Alkaline Phosphatase 75 U/L (39-117) 08/26/20 10:53 Total Protein 7.6 g/dL (6.5-8.0) 08/26/20 10:53 Albumin 3.7 g/dL (3.5-5.0) 08/26/20 10:53 Carcinoembryonic Ag 135.00 mg/mL D 08/26/20 10:53 Progress Note: A/P (1) Metastatic colon cancer to liver Status: Acute Assessment and plan: This is a pleasant 79 year-old male with metastatic Colon Cancer, completed 6 cycles of chemotherapy, September 15, 2017. He has been regaining his appetite and strength slowly. His CEA level was up at 14.4. on December 03 2017. He had a Cat Scan of abdomen on 12/15/17 which revealed: Abdomen and pelvis: Question slight interval increase in size in liver lesions. No new liver lesion seen. Fatty liver. Postsurgical changes from right hemicolectomy. Enlarged prostate gland that protrudes into the base of the bladder. Probable mild diffuse bladder wall thickening. Bilateral inguinal hernias containing fat, right greater than left. Bilateral renal cysts. Stable right adrenal nodule. I referred him to Dr. Case Vázquez, for consideration of radiofrequency embolization therapy. The patient actually underwent the radiofrequency ablation procedure May [address] Vázquez. He did well. It appears that the procedure was successful. June 29, 2018 he had an MRI of the abdomen which revealed: There are 2 metastatic lesions identified within the liver, corresponding with the appearance on prior PET/CT. These lesions demonstrate heterogeneous internal signal, without significant enhancement of the lesions themselves. Mild arterial enhancement in the surrounding hepatic parenchyma, which fades. No new hepatic lesions are identified. Multiple bilateral renal cysts. Exophytic right midpole renal lesion may represent a hemorrhagic or proteinaceous cyst. He just had a PET scan done on March 02 which revealed: 1. There has been a complete metabolic response to therapy of FDG avid no other lesions noted on prior studies. 2. There has been a complete metabolic response of an FDG avid right adrenal nodule. 3. A new 0.5 cm solid left apical pulmonary nodule is present. This is suspicious for a metastasis, but is too small to be characterized on the FDG PET images. Better characterization of the lungs fourth an IV contrast enhanced diagnostic chest CT scan is recommended. 4. No additional abnormalities suspicious for other metastatic or malignant lesions are noted. He has had the pretreatment mapping done on. This was followed by Y- 90 therapy on August 29. MRI of the abdomen from October 30 done at [facility] revealed: Posterior right hepatic Y 90 radioembolization with expected post treatment effect and no residual tumor enhancement within the segment 7 lesion. Ablations cavity in segment 4 a has decreased in size, with some central hypoenhancement. No convincing evidence for residual or recurrent disease. He had a PET scan at [facility] on April 22, which revealed: Persistent peripheral metabolic activity involving the segment 7 metastasis of the right hepatic lobe compatible with persistent disease. Increase in size of the left upper lobe lung nodule, now measuring 15 mm in maximum dimension. New mildly FDG avid right lower lobe lung nodule. These are highly concerning for sites of metastatic disease. This was done on May 17 at [facility], by IR. Pathology revealed: Adenocarcinoma, metastatic, consistent with colonic primary tumor. Min a chemicals studies revealed: SATB 2: Positive in tumor cells. TTS 1: NEGATIVE. CK 20: Positive in tumor cells. CK7: Negative in tumor cells. Since he had declined chemotherapy and again is not interested in receiving that. He was referred for SBRT. He actually completed stereotactic radiosurgery treatment of a left upper lobe lung nodule, to a total dose of 5000 cGY from June 26 to July 05 2020. He had repeat imaging on 09/30/20. This revealed: Post treatment changes in segment 7 of the liver with some increased nodular components both superiorly and inferiorly that appear more pronounced than on the prior MRI imaging from May. More superior area of lobulated hypoenhancement just posterior to the posterior branch of the right portal vein that appeared contiguous with some new thickening in the right adrenal gland. This could represent progression of malignancy as well. The untreated lesion in the right lower lobe of the lung appears minimally changed. He had repeat CT chest on 10/08: Showed multiple new and growing nodules in the right lung. Specifically a metastatic lesion in the right lower lobe measured almost 3 cm as well as a new nodule adjacent to the right hilum. There were also 17 and 10 mm nodule in the upper lobe. The treated lesion in the left upper lobe was slightly smaller. He had a tele visit scheduled with Noel on 10/04. In light of diffuse nature of the progression Dr. Cohen did not feel that further localized therapy would be appropriate. I brought up the option for systemic chemotherapy with him, today. However he is adamantly refusing it, at this point. He said he noted too many side effects, when he had it in the past. Dr. Cohen is deferring treatment of any liver lesions, to Dr. Vázquez, in view of the fact that there are pellets in there. I checked with Dr. Vázquez, to see if that remains an option, since he absolutely does not want any systemic treatment. He saw Dr. Vázquez, about a month ago. At that time he was willing to proceed with systemic chemotherapy. His CEA level from 11/25 was 308. 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 I was planning to treat him with FOLFIRI. However right now he declines it. He is trying some alternative treatment with turmeric, black pepper on wheat bread. l proceeded with reimaging, to establish a baseline. This was done on 01/22 and revealed: CHEST: There is overall interval increase in pulmonary nodules with new nodules in the right upper lobe and new and increasing nodules in the right lower lobe. The left upper lobe nodule appears smaller and decreased in density with a new larger area of surrounding ground-glass attenuation, question representing post local treatment changes. There is increasing right internal thoracic/internal mammary and anterior cardiophrenic angle/diaphragmatic lymphadenopathy. ABDOMEN AND PELVIS: Interval increase in size and number of liver lesions. Increasing right adrenal mass. This is difficult to separate from the adjacent liver lesions. New small amount of thrombus seen in the main portal vein. Question new peritoneal disease. His CEA level is also at 563, from 411 in December. I discussed the findings with him including the fact that if we have to proceed with chemotherapy then we have a window of opportunity now before it is too late. He said he dreads the way he felt while he was getting the chemotherapy last time. He had quite a few side effects. He said if the chemotherapy was 2 by him 5-10 years he would consider it but not for a couple of years prolongation in life, he would not trait his quality for quantity. He said he will discuss it with his family and let me know if he wishes to proceed. If he decides to pursue systemic treatment I would treat him with FOLFIRI. He has not been well lately. He has had some memory impairment dizziness and unsteadiness. He had a fall at home. He was brought into the ER yesterday. CT scan of the head revealed: 1. There are multiple metastatic lesions in the brain bilaterally with significant surrounding vasogenic edema. 2. No CT evidence of acute cervical spine fracture or traumatic subluxation X-rays of thoracolumbar spine: Impression: Chronic appearing and degenerative changes in the spine. I do not appreciate any definitive acute bony destructive lesions on these plain films. If there is persistent concern, cross-sectional imaging would be more sensitive. MRI of the brain: There are bilateral cerebral metastases, largest within the right posterior parietal lobe measuring 3.5 x 2.9 x 2.1 cm. An additional metastatic lesion is present within the posteromedial left temporal lobe measuring 2.5 cm. Smaller metastatic lesion present within the left frontal lobe subjacent to the middle frontal gyrus measures 1.3 cm. There is a 0.9 cm lesion within the anterior left temporal lobe. These lesions all demonstrate heterogeneous peripherally predominant enhancement, with corresponding restricted diffusion. Prominent susceptibility artifact present throughout the left medial temporal lobe lesion reflective of petechial hemorrhage. There is associated punctate susceptibility artifact within the left frontal lesion, and adjacent to the right posterior parietal lesion. These lesions are associated with prominent surrounding confluent T2 prolongation most compatible with vasogenic edema. There is associated local regional mass effect resulting in partial effacement of the right lateral ventricular atrium. No herniation pattern evident. No extra-axial collection. I discussed the case with Dr. Bola Cohen. He saw him started radiation therapy. He received radiation therapy to the brain between 04/10 through 04/21. He is on a Decadron taper: Or mg in the morning and 2 mg in the evening. He was advised to take the Prilosec regularly while on the Decadron. He is here for an unscheduled visit on account of bilateral edema of his feet. This could be related to the Decadron versus hypoproteinemia. He is already on Coumadin. INR is actually 7.5 today, so doubt it could be a blood clot. The Coumadin is on hold for a couple of days. PLAN: I will check his labs including a D-dimer level: 780. Checked serum protein: Low at 6.6. Albumin low at 3.2. He was advised to keep his feet elevated. Take extra protein in the diet. He will return here in 3 weeks for a followup visit. I will set him up for chemotherapy, if he decides to proceed with it. He and his daughter will keep me posted, about any symptoms he may developed in the interim. Thank you, CC: Dr. Juan Henning. Dr. Couch. Dr. Jostin Villa. Dr. Vázquez. Dr. Cohen. - Time Spent With Patient Time Spent with Patient (in minutes): 30
[2021-04-25 12:31] LABS: MANUAL DIFF FLAG NO
[2021-04-25 12:47] LABS: Hematocrit 39.7 % (42-52); Hemoglobin 13.4 g/dl (14.0-18.0); Imm Gran Abs Auto 0.01 X10*3/uL (0.00-0.03); Imm Gran Pct Auto 0.3 % (0.0-0.4); Lymphocytes Absolute Auto 0.6 X10*3/uL (1.2-4.9); Lymphocytes Percent Auto 13.8 % (20-40); Mean Corpuscular HGB Conc 33.8 g/dl (31.0-36.0); Mean Corpuscular Hemoglobin 31.2 pg (27.0-33.0); Mean Corpuscular Volume 92.3 fL (80-98); Mean Platelet Volume 10.3 fL (9.4-12.4); Monocytes Absolute Auto 0.3 X10*3/uL (0.1-1.2); Neutrophils Absolute Auto 3.1 X10*3/uL (2.0-8.3); Neutrophils Percent Auto 76.9 % (45-73); Red Cell Distribution Width 15.1 % (11.0-16.0)
[2021-04-25 12:48] LABS: Platelet Count 68 X10*3/uL (160-400)
[2021-04-25 12:57] LABS: D Dimer 780 NG/ML
[2021-04-25 13:16] LABS: Alanine Aminotransferase 83 U/L (0-40); Albumin Level 3.2 g/dL (3.5-5.0); Alkaline Phosphatase 112 U/L (39-117); Anion Gap 14 (12-20); Aspartate Amino Transferase 41 U/L (5-37); Bilirubin Total 1.2 mg/dL (0.0-1.0); Blood Urea Nitrogen 36 mg/dL (9-16); Calcium 8.2 mg/dL (8.4-10.2); Carbon Dioxide 24 mmol/L (22-29); Chloride 95 mmol/L (96-108); Creatinine Clr Calc Pharmacy 68.8; Estimated Glomerular Filt Rate > 60; Glucose Random 67 mg/dL (60-115); Potassium 4.9 mmol/L (3.3-5.1); Sodium 128 mmol/L (135-145); Total Protein 6.6 g/dL (6.5-8.0)
--- NOTE | 2021-05-23 15:57 | MHC.HEMONC ---
pt is now receiving Hospice Services s/p hospitalization.
== END | disposition home or self-care (01) ==
LOC: HO.ONC 06-27 09:21
PROVIDERS: Pathology Anatomic Pathology & Clinical Pathology; PCP Internal Medicine; Visit Provider Internal Medicine Medical Oncology
DX: R60.0 Localized edema (principal); C18.0 Malignant neoplasm of cecum; C78.7 Secondary malignant neoplasm of liver and intrahepatic bile duct; C78.02 Secondary malignant neoplasm of left lung; C78.01 Secondary malignant neoplasm of right lung; C79.31 Secondary malignant neoplasm of brain; Z79.01 Long term (current) use of anticoagulants; Z92.21 Personal history of antineoplastic chemotherapy; Z92.3 Personal history of irradiation
CPT/HCPCS: 36415; 36591; 80053; 81210; 81275; 81276; 81311; 81403; 82378; 85025; 85379; 88363; 90471; 90686; 96374; 96523; 99214; J1100; J1642